=== PATIENT | female | born 1980 | race Caucasian/White ===

== ENCOUNTER 2020-03-28 13:34 | Outpatient (REF) | payer MEDICAID, SELFPAY ==
[2020-03-28 14:40] LABS: MANUAL DIFF FLAG NO
[2020-03-28 14:43] LABS: Basophils Percent Auto 0.5 % (0-2); Eosinophils Absolute Auto 0.6 X10*3/uL (0.0-0.4); Eosinophils Percent Auto 7.8 % (0-4); Hematocrit 34.9 % (37-47); Hemoglobin 11.3 g/dl (12.0-16.0); Imm Gran Abs Auto 0.02 X10*3/uL (0.00-0.03); Imm Gran Pct Auto 0.2 % (0.0-0.4); Lymphocytes Absolute Auto 2.4 X10*3/uL (1.2-4.9); Lymphocytes Percent Auto 29.3 % (20-40); Mean Corpuscular HGB Conc 32.4 g/dl (31.0-35.0); Mean Corpuscular Hemoglobin 29.1 pg (27.0-33.0); Mean Corpuscular Volume 89.9 fL (80-98); Mean Platelet Volume 9.6 fL (9.4-12.3); Monocytes Absolute Auto 0.6 X10*3/uL (0.1-1.2); Monocytes Percent Auto 7.2 % (2-11); Neutrophils Absolute Auto 4.5 X10*3/uL (2.0-8.3); Platelet Count 401 X10*3/uL (160-400); Red Blood Count 3.88 X10*6/uL (4.20-5.50); Red Cell Distribution Width 14.4 % (11.0-16.0); White Blood Count 8.1 X10*3/uL (4.8-10.8)
[2020-03-28 15:23] LABS: Alanine Aminotransferase 26 U/L (0-31); Alkaline Phosphatase 69 U/L (39-117); Anion Gap 9 (12-20); Aspartate Amino Transferase 24 U/L (5-31); Bilirubin Total 0.4 mg/dL (0.0-1.0); Blood Urea Nitrogen 14 mg/dL (9-16); Calcium 9.4 mg/dL (8.4-10.2); Carbon Dioxide 30 mmol/L (22-29); Chloride 104 mmol/L (96-108); Cholesterol 149 mg/dL; Estimated Glomerular Filt Rate > 60; Glucose Random 110 mg/dL (60-115); HDL Cholesterol 40 mg/dL; LDL Cholesterol Calculated 76 mg/dl; Potassium 4.4 mmol/l (3.3-5.1); Sodium 139 mmol/L (135-145); Total Protein 6.8 g/dL (6.5-8.0); Triglycerides 168 mg/dL
[2020-03-28 15:26] LABS: Thyroid Stimulating Hormone 1.19 mIU/mL (0.32-4.0)
== END 2020-03-28 13:35 | disposition home or self-care (01) ==
LOC: HO.LAB 13:34
PROVIDERS: PCP Internal Medicine; Visit Provider Internal Medicine
DX: Z00.00 Encounter for general adult medical examination without abnormal findings (principal); J01.90 Acute sinusitis, unspecified; R09.82 Postnasal drip; R51.9 Headache, unspecified
CPT/HCPCS: 36415; 80053; 80061; 84443; 85025

== ENCOUNTER 2020-04-02 13:36 | Outpatient (REF) | payer MEDICAID, SELFPAY ==
[2020-04-02 15:13] LABS: C Reactive Protein 0.39 mg/dL (< or = 0.50)
[2020-04-02 15:35] LABS: Erythrocyte Sedimentation Rate 16 MM/HR (0-20)
[2020-04-03 05:41] LABS: HBS Num1 1.67 mIU/mL (0-7.99); HBc Num1 0.06 S/CO (0.00-0.79); HBsAGNum1 0.18 S/CO (0.00-0.99); Hepatitis A Antibody IgM 0.19 Index (0-0.79); Hepatitis B Core Antibody Nonreactive (Nonreactive); Hepatitis B Surface Antigen Negative (Negative); ~Hepatitis A Antibody IgM Nonreactive (Nonreactive); ~Hepatitis B Surface Antibody NONREACTIVE (Nonreactive)
[2020-04-03 05:56] LABS: ~HepC Num1 0.05 S/CO (0.00-0.79); ~Hepatitis C Antibody Nonreactive (Nonreactive)
[2020-04-04 14:17] LABS: Transglutaminase IgA 1 U/mL
[2020-04-04 18:32] LABS: Gliadin Deamidated IgA Ab 5 Units; Gliadin Deamidated IgG Ab 2 Units
[2020-04-10 20:26] LABS: Calprotectin, Fecal 241 mcg/g
== END 2020-04-02 13:37 | disposition home or self-care (01) ==
LOC: HO.LAB 13:36
PROVIDERS: PCP Internal Medicine; Visit Provider Internal Medicine Gastroenterology
DX: K52.9 Noninfective gastroenteritis and colitis, unspecified (principal)
CPT/HCPCS: 36415; 81335; 83516; 83993; 85652; 86140; 86481; 86704; 86706; 86709; 86787; 86803; 87340

== ENCOUNTER → 2020-04-08 13:52 | Outpatient (BNVA) | payer MEDICAID, SELFPAY | PROVIDERS: PCP Internal Medicine; Referring Provider Internal Medicine; Visit Provider Internal Medicine Gastroenterology | DX: K52.9 Noninfective gastroenteritis and colitis, unspecified (principal); Z98.890 Other specified postprocedural states | CPT/HCPCS: 99212 ==

== ENCOUNTER 2020-04-10 15:54 | Outpatient (REF) | payer MEDICAID, SELFPAY ==
[2020-04-10 16:30] LABS: UPreg QC Valid YES; Urine Pregnancy NEGATIVE (NEGATIVE)
[2020-04-11 20:47] LABS: Follicle Stimulating Hormone 7.9 mIU/mL
== END 2020-04-10 15:55 | disposition home or self-care (01) ==
LOC: HO.LAB 15:54
PROVIDERS: PCP Internal Medicine; Visit Provider Internal Medicine
DX: E28.2 Polycystic ovarian syndrome (principal)
CPT/HCPCS: 81025; 83001

== ENCOUNTER 2020-06-24 10:36 | Outpatient (REF) | payer MEDICAID, SELFPAY ==
[2020-06-24 12:20] LABS: Anion Gap 11 (12-20); Blood Urea Nitrogen 11 mg/dL (9-16); Calcium 9.3 mg/dL (8.4-10.2); Carbon Dioxide 31 mmol/L (22-29); Chloride 101 mmol/L (96-108); Estimated Glomerular Filt Rate > 60; Glucose Random 117 mg/dL (60-115); Potassium 4.2 mmol/l (3.3-5.1); Sodium 139 mmol/L (135-145)
== END 2020-06-24 10:37 | disposition home or self-care (01) ==
LOC: HO.LAB 10:36
PROVIDERS: PCP Internal Medicine; Visit Provider Internal Medicine Gastroenterology
DX: K52.9 Noninfective gastroenteritis and colitis, unspecified (principal)
CPT/HCPCS: 36415; 80048

== ENCOUNTER 2020-06-25 13:34 | Outpatient (REF) | payer MEDICAID, SELFPAY | END 2020-06-25 13:35 | disposition home or self-care (01) | LOC: HO.US 13:34 | PROVIDERS: PCP Internal Medicine; Visit Provider Internal Medicine Gastroenterology | DX: Z13.89 Encounter for screening for other disorder (principal) ==

== ENCOUNTER → 2020-07-01 13:27 | Outpatient (BNVA) | payer MEDICAID, SELFPAY | PROVIDERS: PCP Internal Medicine; Visit Provider Internal Medicine Gastroenterology | DX: Z76.89 Persons encountering health services in other specified circumstances (principal) ==

== ENCOUNTER 2020-07-02 13:32 | Outpatient (REF) | payer MEDICAID, SELFPAY ==
--- NOTE | 2020-07-02 13:33 | CT_ITS ---
EXAMINATION: CT ENTEROGRAPHY ABDOMEN AND PELVIS WITH CONTRAST CLINICAL INFORMATION: Noninfected gastroenteritis and colitis COMPARISON: Previous CT of the abdomen and pelvis February 2019 TECHNIQUE: Study performed with oral VoLumen (1350 mL) and 480 mL of water to distend the abdomen. The patient was injected with 85 mL Omnipaque 350 intravenous contrast which was administered without adverse effect. Coronal and sagittal reformatted images were obtained at the technologist's workstation. This CT examination was performed using dose optimization techniques as appropriate, variously including the following: *Automated exposure control *Adjustment of mA and/or kV according to patient size (this includes techniques or standardized protocols for targeted exams where dose is matched to indication/reason for exam; i.e. extremities or head) *Use of iterative reconstruction technique DLP: 870 mGy-cm FINDINGS: GASTROINTESTINAL FINDINGS: Stomach: There are postsurgical changes from gastric sleeve. There is a moderate hiatal hernia. Small intestine: Satisfactorily distended and normal in appearance. Large intestine: Well-distended mild diverticulosis. Otherwise normal in appearance. No perirectal changes demonstrated. The appendix is is not identified and may been removed. Additional findings: No abnormal enhancement of the vasa recta or significant mesenteric or retroperitoneal lymphadenopathy is seen. No abdominal abscess or fistulous tract demonstrated. ABDOMINAL AND PELVIC CT FINDINGS: Liver, gallbladder, biliary tract: The liver is normal in size, shape and attenuation. No focal liver lesion is seen. There is no biliary duct dilatation. The gallbladder has been removed. Pancreas: Normal Spleen: Normal Adrenal glands and kidneys: The adrenal glands are unremarkable. There is fullness of both renal pelvises. The kidneys are otherwise unremarkable. No ureteral dilatation is seen. Ureters and bladder: Normal. Lymphovascular structures: There are no enlarged lymph nodes. Vascular structures are unremarkable. There is no ascites. There is evidence of previous ventral hernia repair with mesh. Bones: There is degenerative disc disease at L4-L5 and L5-S1. Lung bases: Unremarkable. CT/CT enterography IMPRESSION: Postoperative change from gastric sleeve procedure. Moderate-sized hiatal hernia. Mild diverticulosis of the colon. No evidence of inflammatory bowel disease. Post cholecystectomy ventral hernia repair with mesh.
[2020-07-02] MEDS: iohexoL 350 MG/ML 100 ML INFUS..BTL IV (15:09)
[2020-07-02] MEDS: Sorbitol/Mannit/Xanth Imaging 500 ML LIQUID 1500 ML PO (15:12)
== END 2020-07-02 13:33 | disposition home or self-care (01) ==
LOC: HO.US 13:32
PROVIDERS: Visit Provider Internal Medicine Gastroenterology
DX: K52.9 Noninfective gastroenteritis and colitis, unspecified (principal)
CPT/HCPCS: 74177; Q9967

== ENCOUNTER → 2020-08-23 08:06 | Outpatient (BNVA) | payer MEDICAID, SELFPAY | PROVIDERS: PCP Internal Medicine; Visit Provider Internal Medicine Gastroenterology ==

== ENCOUNTER → 2020-11-08 10:50 | Outpatient (BNVA) | payer MEDICAID, SELFPAY | PROVIDERS: PCP Internal Medicine; Visit Provider Internal Medicine Gastroenterology | DX: K52.9 Noninfective gastroenteritis and colitis, unspecified (principal) | CPT/HCPCS: 99212 ==

== ENCOUNTER 2020-12-12 10:13 | Outpatient (REF) | payer MEDICAID, SELFPAY ==
[2020-12-12 10:45] LABS: MANUAL DIFF FLAG NO
[2020-12-12 10:53] LABS: Basophils Percent Auto 0.4 % (0-2); Eosinophils Absolute Auto 0.4 X10*3/uL (0.0-0.4); Hematocrit 35.7 % (37-47); Hemoglobin 11.2 g/dl (12.0-16.0); Imm Gran Abs Auto 0.02 X10*3/uL (0.00-0.03); Imm Gran Pct Auto 0.2 % (0.0-0.4); Lymphocytes Absolute Auto 1.9 X10*3/uL (1.2-4.9); Lymphocytes Percent Auto 22.9 % (20-40); Mean Corpuscular HGB Conc 31.4 g/dl (31.0-35.0); Mean Platelet Volume 9.2 fL (9.4-12.3); Monocytes Absolute Auto 0.6 X10*3/uL (0.1-1.2); Neutrophils Absolute Auto 5.3 X10*3/uL (2.0-8.3); Neutrophils Percent Auto 64.5 % (45-73); Platelet Count 411 X10*3/uL (160-400); Red Blood Count 4.15 X10*6/uL (4.20-5.50); Red Cell Distribution Width 15.2 % (11.0-16.0); White Blood Count 8.3 X10*3/uL (4.8-10.8)
[2020-12-12 11:16] LABS: Alanine Aminotransferase 31 U/L (0-31); Albumin Level 4.2 g/dL (3.5-5.0); Alkaline Phosphatase 69 U/L (39-117); Anion Gap 10 (12-20); Aspartate Amino Transferase 31 U/L (5-31); Bilirubin Total 0.4 mg/dL (0.0-1.0); Blood Urea Nitrogen 12 mg/dL (9-16); C Reactive Protein 0.41 mg/dL (< or = 0.50); Calcium 9.5 mg/dL (8.4-10.2); Carbon Dioxide 29 mmol/L (22-29); Chloride 104 mmol/L (96-108); Estimated Glomerular Filt Rate > 60; Glucose Random 115 mg/dL (60-115); Sodium 139 mmol/L (135-145); Total Protein 6.9 g/dL (6.5-8.0)
[2020-12-12 11:17] LABS: Estimated Average Glucose 134 mg/dL; Hemoglobin A1c % 6.3 %
[2020-12-12 11:33] LABS: Thyroid Stimulating Hormone 1.47 uIU/mL (0.32-4.0)
[2020-12-12 11:39] LABS: Ferritin 1 ng/mL (10-250); Vitamin D 25-OH Total 26.5 ng/mL (>30)
[2020-12-12 11:54] LABS: Erythrocyte Sedimentation Rate 16 MM/HR (0-20)
[2020-12-12 12:20] LABS: Folate 8.9 ng/mL (> or = 4.0); Vitamin B12 547 pg/mL (200-900)
[2020-12-16 17:33] LABS: Zinc 65 mcg/dL (60-130)
[2020-12-17 16:37] LABS: Vitamin C 0.5 mg/dL (0.3-2.7)
[2020-12-17 19:01] LABS: Vitamin A 58 mcg/dL (38-98)
[2020-12-18 11:37] LABS: Vitamin B5 (Pantothenic Acid) 60 ng/mL (<275)
[2020-12-18 13:41] LABS: Alpha-Tocopherol 10.2 mg/L (5.7-19.9); Beta-Gamma Tocopherol 1.9 mg/L (<=4.3)
[2020-12-19 09:32] LABS: Nicotinamide <20 ng/mL; Vit B3 - Nicotinic Acid <20 ng/mL
[2020-12-22 15:36] LABS: Vitamin B6 48.2 ng/mL (2.1-21.7)
[2020-12-24 18:26] LABS: Vitamin K1 462 pg/mL (130-1500)
== END 2020-12-12 10:14 | disposition home or self-care (01) ==
LOC: HO.LAB 10:13
PROVIDERS: Internal Medicine Gastroenterology; PCP Internal Medicine; Visit Provider Internal Medicine
DX: E66.01 Morbid (severe) obesity due to excess calories (principal); G47.33 Obstructive sleep apnea (adult) (pediatric); I10 Essential (primary) hypertension; R42 Dizziness and giddiness; R51.9 Headache, unspecified; R53.83 Other fatigue; Z98.84 Bariatric surgery status
CPT/HCPCS: 36415; 80053; 82180; 82306; 82607; 82728; 82746; 83036; 84207; 84443; 84446; 84590; 84591; 84597; 84630; 85025; 85652; 86140

== ENCOUNTER → 2021-03-05 14:01 | Outpatient (BNVA) | payer MEDICAID, SELFPAY | PROVIDERS: PCP Internal Medicine; Visit Provider Internal Medicine Gastroenterology ==

== ENCOUNTER 2021-10-23 10:22 | Outpatient (REF) | payer MEDICAID, SELFPAY ==
[2021-10-23 10:34] LABS: MANUAL DIFF FLAG NO
[2021-10-23 10:54] LABS: Basophils Percent Auto 0.4 % (0-2); Eosinophils Absolute Auto 0.4 X10*3/uL (0.0-0.4); Eosinophils Percent Auto 5.1 % (0-4); Hematocrit 39.7 % (37.0-47.0); Hemoglobin 12.6 g/dl (12.0-16.0); Imm Gran Abs Auto 0.01 X10*3/uL (0.00-0.03); Imm Gran Pct Auto 0.1 % (0.0-0.4); Lymphocytes Absolute Auto 2.4 X10*3/uL (1.2-4.9); Lymphocytes Percent Auto 35.3 % (20-40); Mean Corpuscular HGB Conc 31.7 g/dl (31.0-35.0); Mean Corpuscular Hemoglobin 29.2 pg (27.0-33.0); Mean Corpuscular Volume 91.9 fL (80.0-98.0); Mean Platelet Volume 9.1 fL (9.4-12.3); Monocytes Absolute Auto 0.5 X10*3/uL (0.1-1.2); Neutrophils Absolute Auto 3.6 x10*3/uL (2.0-8.3); Neutrophils Percent Auto 52.1 % (45-73); Platelet Count 411 X10*3/uL (160-400); Red Blood Count 4.32 X10*6/uL (4.20-5.50); Red Cell Distribution Width 14.5 % (11.0-16.0); White Blood Count 6.9 X10*3/uL (4.8-10.8)
[2021-10-23 11:27] LABS: Alanine Aminotransferase 28 U/L (0-31); Albumin Level 4.2 g/dL (3.5-5.0); Alkaline Phosphatase 65 U/L (39-117); Anion Gap 12 (12-20); Aspartate Amino Transferase 31 U/L (5-31); Bilirubin Total 0.7 mg/dL (0.0-1.0); Blood Urea Nitrogen 10 mg/dL (9-16); Calcium 10.1 mg/dL (8.4-10.2); Carbon Dioxide 29 mmol/L (22-29); Chloride 104 mmol/L (96-108); Cholesterol 166 mg/dL; Estimated Glomerular Filt Rate > 60; Glucose Random 106 mg/dL (60-115); HDL Cholesterol 44 mg/dL; LDL Cholesterol Calculated 98 mg/dl; Potassium 4.1 mmol/L (3.3-5.1); Sodium 141 mmol/L (135-145); Total Protein 7.4 g/dL (6.5-8.0); Triglycerides 120 mg/dL
[2021-10-23 11:37] LABS: Thyroid Stimulating Hormone 1.47 uIU/mL (0.32-4.0)
== END 2021-10-23 10:23 | disposition home or self-care (01) ==
LOC: HO.LAB 10:22
PROVIDERS: PCP Internal Medicine; Visit Provider Internal Medicine
DX: E66.01 Morbid (severe) obesity due to excess calories (principal); Z68.41 Body mass index [BMI] 40.0-44.9, adult; F32.9 Major depressive disorder, single episode, unspecified; I10 Essential (primary) hypertension; R87.612 Low grade squamous intraepithelial lesion on cytologic smear of cervix (LGSIL); Z78.0 Asymptomatic menopausal state
CPT/HCPCS: 36415; 80053; 80061; 84443; 85025

== ENCOUNTER 2022-01-29 11:24 | Outpatient (REF) | payer MEDICAID, SELFPAY ==
[2022-01-29 15:13] LABS: CT PCR NOT DETECTED (Not Detect.); NG PCR NOT DETECTED (Not Detect.)
== END 2022-01-29 11:25 | disposition home or self-care (01) ==
LOC: HO.LAB 11:24
PROVIDERS: Visit Provider Obstetrics & Gynecology
DX: Z11.3 Encounter for screening for infections with a predominantly sexual mode of transmission (principal); N91.2 Amenorrhea, unspecified; R87.612 Low grade squamous intraepithelial lesion on cytologic smear of cervix (LGSIL)
CPT/HCPCS: 81025; 87491; 87591; 99202

== ENCOUNTER 2022-02-02 17:13 | Outpatient (REF) | payer MEDICAID, SELFPAY ==
[2022-02-02 18:19] LABS: HCG Quantitative < 2 mIU/mL; TSH reflex Free T4 1.59 uIU/mL (0.32-4.0)
[2022-02-04 06:42] LABS: Prolactin 7.4 ng/mL
== END 2022-02-02 17:14 | disposition home or self-care (01) ==
LOC: HO.LAB 17:13
PROVIDERS: PCP Internal Medicine; Visit Provider Obstetrics & Gynecology
DX: N91.2 Amenorrhea, unspecified (principal)
CPT/HCPCS: 36415; 84146; 84443; 84702

== ENCOUNTER 2022-02-07 23:32 | Emergency (ER) | payer MEDICAID, SELFPAY ==
[2022-02-07 23:49] VITALS: BP 153/94; PULSE 73; RESP 18; TEMP 36.2; O2SAT 100; BMI 41.1
== END 2022-02-08 04:53 | disposition left against medical advice (07) ==
PROVIDERS: Emergency Provider Emergency Medicine; PCP Internal Medicine
DX: M25.561 Pain in right knee (principal)
CPT/HCPCS: 99281

== ENCOUNTER 2022-02-10 11:13 | Outpatient (REF) | payer MEDICAID, SELFPAY ==
--- NOTE | ~2022-02-10 | XR_ITS ---
EXAMINATION: XR FOOT, RIGHT CLINICAL INFORMATION: Right heel pain since injury 8 months ago COMPARISON: None TECHNIQUE: AP, lateral, and oblique views of the right foot. FINDINGS: No acute fracture or dislocation. Joint spaces throughout the foot are maintained. No osteophytes or erosions. Lisfranc alignment is within normal limits. Large posterior and plantar calcaneal enthesophyte/spurs. Slight thickening of the distal Achilles tendon. No ankle joint effusion. XR/XR foot RT min 3V IMPRESSION: 1. No acute osseous injury. 2. Large posterior and plantar calcaneal enthesophytes/spurs.
[2022-02-10 11:51] LABS: MANUAL DIFF FLAG NO
[2022-02-10 12:06] LABS: Basophils Percent Auto 0.5 % (0-2); Eosinophils Absolute Auto 0.3 X10*3/uL (0.0-0.4); Eosinophils Percent Auto 4.5 % (0-4); Hematocrit 38.9 % (37.0-47.0); Hemoglobin 12.7 g/dl (12.0-16.0); Imm Gran Abs Auto 0.02 X10*3/uL (0.00-0.03); Imm Gran Pct Auto 0.3 % (0.0-0.4); Lymphocytes Absolute Auto 2.1 X10*3/uL (1.2-4.9); Mean Corpuscular HGB Conc 32.6 g/dl (31.0-35.0); Mean Corpuscular Hemoglobin 30.4 pg (27.0-33.0); Mean Corpuscular Volume 93.1 fL (80.0-98.0); Mean Platelet Volume 9.3 fL (9.4-12.3); Monocytes Absolute Auto 0.6 X10*3/uL (0.1-1.2); Monocytes Percent Auto 7.7 % (2-11); Neutrophils Absolute Auto 4.3 x10*3/uL (2.0-8.3); Platelet Count 380 X10*3/uL (160-400); Red Blood Count 4.18 X10*6/uL (4.20-5.50); Red Cell Distribution Width 13.6 % (11.0-16.0); White Blood Count 7.4 X10*3/uL (4.8-10.8)
[2022-02-10 12:14] LABS: Estimated Average Glucose 128 mg/dL; Hemoglobin A1c % 6.1 %
[2022-02-10 12:30] LABS: Alanine Aminotransferase 20 U/L (0-31); Albumin Level 3.9 g/dL (3.5-5.0); Alkaline Phosphatase 59 U/L (39-117); Anion Gap 12 (12-20); Aspartate Amino Transferase 21 U/L (5-31); Bilirubin Total 0.5 mg/dL (0.0-1.0); Blood Urea Nitrogen 11 mg/dL (9-16); Calcium 9.2 mg/dL (8.4-10.2); Carbon Dioxide 30 mmol/L (22-29); Chloride 104 mmol/L (96-108); Estimated Glomerular Filt Rate > 60; Glucose Random 121 mg/dL (60-115); Potassium 4.1 mmol/L (3.3-5.1); Sodium 142 mmol/L (135-145); Total Protein 6.7 g/dL (6.5-8.0)
[2022-02-10 12:53] LABS: Ferritin 10 ng/mL (10-250); Thyroid Stimulating Hormone 1.25 uIU/mL (0.32-4.0)
[2022-02-10 12:59] LABS: Vitamin B12 371 pg/mL (200-900)
== END 2022-02-10 11:14 | disposition home or self-care (01) ==
LOC: HO.LAB 11:13
PROVIDERS: PCP Internal Medicine; Visit Provider Internal Medicine
DX: I83.12 Varicose veins of left lower extremity with inflammation (principal); I10 Essential (primary) hypertension; M79.671 Pain in right foot; R63.5 Abnormal weight gain; Z72.0 Tobacco use
CPT/HCPCS: 36415; 73630; 80053; 82607; 82728; 83036; 84443; 85025; 99202

== ENCOUNTER 2022-02-19 15:50 | Outpatient (REF) | payer MEDICAID, SELFPAY | END 2022-02-19 15:51 | disposition home or self-care (01) | LOC: HO.LNP 15:50 | PROVIDERS: PCP Internal Medicine; Visit Provider Obstetrics & Gynecology | DX: R87.612 Low grade squamous intraepithelial lesion on cytologic smear of cervix (LGSIL) (principal); Z32.02 Encounter for pregnancy test, result negative | CPT/HCPCS: 57454; 81025; 88305 ==

== ENCOUNTER → 2022-03-05 13:36 | Outpatient (BNVA) | payer MEDICAID, SELFPAY | PROVIDERS: PCP Internal Medicine; Visit Provider Obstetrics & Gynecology | DX: R87.612 Low grade squamous intraepithelial lesion on cytologic smear of cervix (LGSIL) (principal) | CPT/HCPCS: 99212 ==

== ENCOUNTER 2022-05-30 23:37 | Inpatient (IN) | payer MEDICAID, SELFPAY ==
--- NOTE | ~2022-05-30 | CT_ITS ---
EXAMINATION: CT HEAD WITHOUT CONTRAST CLINICAL INFORMATION: Syncope. Head strike. COMPARISON: MRI brain 10/19/2019. CT head 01/22/2019. TECHNIQUE: Contiguous axial imaging was performed from the skull base to vertex without intravenous administration of contrast. This CT examination was performed using dose optimization techniques as appropriate, variously including the following: *Automated exposure control *Adjustment of mA and/or kV according to patient size (this includes techniques or standardized protocols for targeted exams where dose is matched to indication/reason for exam; i.e. extremities or head) *Use of iterative reconstruction technique DLP: 848 mGy-cm FINDINGS: No intracranial hemorrhage, tumors or acute infarcts noted. The ventricles and sulci are normal in size and configuration. No focal parenchymal lesions of the brain or abnormal extra-axial fluid collections identified. Multifocal dental amalgam which gives rise to scattering artifact obscuring visualization of adjacent transaxial structures. Normal appearance of the orbits and globes. No significant opacification of the visualized paranasal sinuses, mastoid air cells and middle ear cavities. Punctate gas is noted in the left lateral aspect of the cavernous sinus and may represent iatrogenically introduced gas of uncertain clinical significance. CT/CT head/brain wo IV con IMPRESSION: No acute intracranial abnormalities. No intracranial hemorrhage.
--- NOTE | ~2022-05-30 | CT_ITS ---
EXAMINATION: CT chest w IV con, CT soft tissue neck w IV con CLINICAL INFORMATION: Reason for Exam chest trauma, anterior chest wall pain, neck pain. Swollen tonsils. Syncope. COMPARISON: None. TECHNIQUE: IV contrast and CT of the neck and of the chest with multiple coronal and sagittal reformatted images. Intravenous Contrast: Omnipaque [address] examination was performed using dose optimization techniques as appropriate, variously including the following: *Automated exposure control *Adjustment of mA and/or kV according to patient size (this includes techniques or standardized protocols for targeted exams where dose is matched to indication/reason for exam; i.e. extremities or head) *Use of iterative reconstruction technique DLP: 2464 mGy-cm FINDINGS: CT neck: The visualized orbits and globes are normal in appearance. Within the incidentally visualized intracranial structures, no abnormalities are noted. The parotid, submandibular and sublingual glands are normal in appearance. No maxillofacial soft tissue inflammatory changes identified. Bilateral diffuse prominence of the palatine tonsils is noted. No tonsillar or peritonsillar fluid collections visualized. The airway demonstrates a minimum diameter of 5 mm. No thickening of the aryepiglottic folds or epiglottis noted. Mild edematous changes are noted in the parapharyngeal fat which is not effaced. The jugulodigastric lymph nodes are at the upper limits of normal size bilaterally. Scattered bilateral level 2 lymph nodes at the upper limits of normal size are present and are suspicious for reactive lymphadenopathy. A 7 mm rounded low-density focus is present in the right lobe of the thyroid and on the basis of size criteria is likely to be benign not definitively warranting additional imaging follow-up. Minimal nonocclusive calcific atherosclerotic plaque is present in the right carotid bulb. Normal intraluminal opacification is noted in the internal jugular systems. No mastoid or middle ear cavity effusions. Mild straightening of the cervical lordosis which may be secondary to positioning during the examination. No prevertebral fluid collections identified. CT CHEST: LUNGS: No pulmonary consolidation. No suspicious nodules. No endobronchial lesions. Mediastinum: Small hiatal hernia and fluid distention of the thoracic esophagus without evidence of mural inflammatory changes or thickening of the thoracic esophagus. Suture material is noted which may relate to a prior gastric sleeve resection and possible fundoplication. No mediastinal lymphadenopathy. Normal heart size. Pleura: No pneumothoraces or pleural effusions. CHEST WALL: No axillary lymphadenopathy. No soft tissue inflammatory changes. Incidentally visualized abdominal structures: The left adrenal gland is partially included in the image [id number] and demonstrates no abnormalities. As noted above, suture material is noted in association with the stomach and a small hiatal hernia is present. Osseous structures: No fractures identified. Intact sternum. No vertebral body compression deformities. Minimal multilevel anterior endplate osteophytosis of the thoracic spine. CT/CT soft tissue neck w IV con IMPRESSION: CT neck: *Marked diffuse prominence of the palatine tonsils bilaterally which may correlate with pharyngitis/tonsillitis. No tonsillar or peritonsillar fluid collections. Enlargement of the tonsils results in narrowing of the airway to a minimum diameter of 5 mm. *Bilateral anterior cervical reactive lymphadenopathy which may be secondary to pharyngitis/tonsillitis. CT CHEST: *No acute traumatic abnormalities of the thorax. *Small hiatal hernia and moderate diffuse fluid dilatation of the thoracic esophagus. Suture material is noted in association with the stomach which is partially included in the image [id number] suggestive of a prior gastric sleeve resection and possible fundoplication.
--- NOTE | ~2022-05-30 | CT_ITS ---
EXAMINATION: CT ABDOMEN AND PELVIS WITH CONTRAST CLINICAL INFORMATION: Abdominal trauma. Syncope. COMPARISON: CT chest 05/31/2022. CT abdomen 02/28/2019 TECHNIQUE: Multidetector volumetric images were obtained from the superior aspect of the liver through the pubic symphysis following administration 100 mL of Omnipaque 350 intravenous contrast. Sagittal and coronal reformatted images were obtained on the technologist's workstation. Oral contrast: No This CT examination was performed using dose optimization techniques as appropriate, variously including the following: *Automated exposure control *Adjustment of mA and/or kV according to patient size (this includes techniques or standardized protocols for targeted exams where dose is matched to indication/reason for exam; i.e. extremities or head) *Use of iterative reconstruction technique DLP: 2464 mGy-cm FINDINGS: LUNG BASES: The visualized lung bases are unremarkable. LIVER, GALLBLADDER, AND BILIARY TREE: The liver is normal in size, shape, and attenuation. No focal hepatic lesion or biliary ductal dilatation is present. Cholecystectomy clips are noted. PANCREAS: Unremarkable. SPLEEN: Unremarkable. ADRENAL GLANDS: Unremarkable. KIDNEYS AND URETERS: The kidneys are normal in size, shape, and attenuation. No hydronephrosis, hydroureter, or calculi seen. No perinephric stranding. BLADDER: Unremarkable. GASTROINTESTINAL TRACT: Concentric prominence of the submucosa is present in the cecum with findings suspicious for possible submucosal fatty hypertrophy. The appendix is not visualized. No pericecal inflammatory changes noted. A cecal bascule is noted. No free intraperitoneal fluid or gas collections identified. A small hiatal hernia is present unchanged compared with 07/02/2020. Suture material is present along the gastric greater curvature suggestive of prior gastric sleeve resection. ABDOMINAL WALL: An anterior abdominal wall mesh graft is noted. No abdominal wall hernias. LYMPH NODES: Normal. VASCULAR: Unremarkable. PELVIC VISCERA: Unremarkable. OSSEOUS STRUCTURES: Moderate vacuum phenomena and joint space narrowing L4-L5 and L5-S1. No vertebral body compression deformities. CT/CT abdomen pelvis w IV con IMPRESSION: IV contrast enhanced CT of the abdomen and pelvis: *No acute traumatic abnormalities identified. *Mild concentric mural thickening and submucosal mural stratification of the cecum. Findings may represent the sequela of remote bowel inflammatory changes. Overlying mild cecal acute inflammatory changes could additionally be present. The appendix is not visualized. Findings are most likely represent chronic mural hypertrophy related to previous inflammatory changes. *Small hiatal hernia unchanged compared with 07/02/2020. Status post gastric sleeve resection and possible fundoplication.
--- NOTE | ~2022-05-30 | CT_ITS ---
EXAMINATION: CT chest w IV con, CT soft tissue neck w IV con CLINICAL INFORMATION: Reason for Exam chest trauma, anterior chest wall pain, neck pain. Swollen tonsils. Syncope. COMPARISON: None. TECHNIQUE: IV contrast and CT of the neck and of the chest with multiple coronal and sagittal reformatted images. Intravenous Contrast: Omnipaque [address] examination was performed using dose optimization techniques as appropriate, variously including the following: *Automated exposure control *Adjustment of mA and/or kV according to patient size (this includes techniques or standardized protocols for targeted exams where dose is matched to indication/reason for exam; i.e. extremities or head) *Use of iterative reconstruction technique DLP: 2464 mGy-cm FINDINGS: CT neck: The visualized orbits and globes are normal in appearance. Within the incidentally visualized intracranial structures, no abnormalities are noted. The parotid, submandibular and sublingual glands are normal in appearance. No maxillofacial soft tissue inflammatory changes identified. Bilateral diffuse prominence of the palatine tonsils is noted. No tonsillar or peritonsillar fluid collections visualized. The airway demonstrates a minimum diameter of 5 mm. No thickening of the aryepiglottic folds or epiglottis noted. Mild edematous changes are noted in the parapharyngeal fat which is not effaced. The jugulodigastric lymph nodes are at the upper limits of normal size bilaterally. Scattered bilateral level 2 lymph nodes at the upper limits of normal size are present and are suspicious for reactive lymphadenopathy. A 7 mm rounded low-density focus is present in the right lobe of the thyroid and on the basis of size criteria is likely to be benign not definitively warranting additional imaging follow-up. Minimal nonocclusive calcific atherosclerotic plaque is present in the right carotid bulb. Normal intraluminal opacification is noted in the internal jugular systems. No mastoid or middle ear cavity effusions. Mild straightening of the cervical lordosis which may be secondary to positioning during the examination. No prevertebral fluid collections identified. CT CHEST: LUNGS: No pulmonary consolidation. No suspicious nodules. No endobronchial lesions. Mediastinum: Small hiatal hernia and fluid distention of the thoracic esophagus without evidence of mural inflammatory changes or thickening of the thoracic esophagus. Suture material is noted which may relate to a prior gastric sleeve resection and possible fundoplication. No mediastinal lymphadenopathy. Normal heart size. Pleura: No pneumothoraces or pleural effusions. CHEST WALL: No axillary lymphadenopathy. No soft tissue inflammatory changes. Incidentally visualized abdominal structures: The left adrenal gland is partially included in the image [id number] and demonstrates no abnormalities. As noted above, suture material is noted in association with the stomach and a small hiatal hernia is present. Osseous structures: No fractures identified. Intact sternum. No vertebral body compression deformities. Minimal multilevel anterior endplate osteophytosis of the thoracic spine. CT/CT chest w IV con IMPRESSION: CT neck: *Marked diffuse prominence of the palatine tonsils bilaterally which may correlate with pharyngitis/tonsillitis. No tonsillar or peritonsillar fluid collections. Enlargement of the tonsils results in narrowing of the airway to a minimum diameter of 5 mm. *Bilateral anterior cervical reactive lymphadenopathy which may be secondary to pharyngitis/tonsillitis. CT CHEST: *No acute traumatic abnormalities of the thorax. *Small hiatal hernia and moderate diffuse fluid dilatation of the thoracic esophagus. Suture material is noted in association with the stomach which is partially included in the image [id number] suggestive of a prior gastric sleeve resection and possible fundoplication.
[2022-05-30 23:42] VITALS: BP 136/81; BP 146/90; PULSE 117; PULSE 119; RESP 16; TEMP 36.8; O2SAT 96; BMI 40.6
--- NOTE | 2022-05-30 23:47 | ECG_ITS ---
Test Reason : TACHYCARDIA Blood Pressure : / mmHG Vent. Rate : 111 BPM Atrial Rate : 111 BPM P-R Int : 156 ms QRS Dur : 086 ms QT Int : 312 ms P-R-T Axes : 052 043 -05 degrees QTc Int : 424 ms Sinus tachycardia T wave abnormality, consider inferior ischemia Abnormal ECG When compared with ECG of 02-MAR-2019 11:51, Premature ventricular complexes are no longer Present Vent. rate has increased BY 44 BPM T wave inversion more evident in Inferior leads Nonspecific T wave abnormality no longer evident in Anterior leads Referred By: Carmen Cardozo Electronically Signed By:NILAY PERLA MD
--- NOTE | 2022-05-30 23:49 | ED.GENADULT ---
HPI - General Adult General Chief complaint: General Medical Stated complaint: syncope Time Seen by Provider: 05/30/22 23:40 Source: patient and EMS Mode of arrival: EMS Limitations: no limitations History of Present Illness HPI narrative: This is a 42-year-old female with no significant medical history presenting to the emergency department with complaints of severe sore throat, syncopal episode. Patient tells me she has been having a sore throat for about a week, she tells me she was seen by her PCP via telemedicine was prescribed azithromycin for her sore throat however throat is worsening, despite antibiotics. Patient tells me it is very difficult to swallow and she feels like she cannot swallow her saliva. She tells me she is very uncomfortable. She tells me she actively participates in oral sex, new partner unsure of STD status, some concerns for STDs, she is wondering if she has gonococcal pharyngitis. Patient also reports that just prior to arrival she had a syncopal episode, she tells me that this is never happened to her before. She reports she was walking to the bathroom and suddenly started to feel faint, woke up on the ground, unsure if she hit her head, she tells me she did lose consciousness, she is not on blood thinners. Denies any specific preceding symptoms other than feeling faint. Patient reports fever T-max a 103 degrees at. Patient was placed in a cervical collar by EMS and arrives in a cervical collar. Denies chest pain, headache, vision changes, dizziness, weakness, nausea, vomiting, abdominal pain. Related Data Home Medications Medication Instructions Recorded Confirmed omeprazole 40 mg capsule,delayed 40 mg PO BID 07/01/20 release lisinopril 10 1 tab PO DAILY 03/05/21 mg-hydrochlorothiazide 12.5 mg tablet sennosides 8.6 mg tablet (senna) 8.6 mg PO BEDTIME PRN constipation 03/05/21 bupropion HCl 300 mg 24 hr tablet, 300 mg PO DAILY 01/29/22 extended release Previous Rx's Medication Instructions Recorded sodium,potassium,mag sulfates 17.5 See Rx Instructions PO ONCE #354 mL 08/23/20 gram-3.13 gram-1.6 gram oral soln (Suprep Bowel Prep Kit) ferrous gluconate 324 mg (38 mg 324 mg PO TID #90 tabs 01/01/22 iron) tablet Allergies Allergy/AdvReac Type Severity Reaction Status Date / Time Shellfish Allergy Mild HIVES/RASH/ Uncoded 03/05/22 13:44 SWELLING shellfish Allergy Unknown unknown Uncoded 03/05/22 13:44 Review of Systems Review of Systems: Constitutional : No Weight loss, No Fever, No Chills, No Fatigue, No Malaise ENT/Mouth : + sore throat, No Rhinorrhea Eyes: No Eye Pain, No Swelling, No Redness Cardiovascular : No Chest Pain, No SOB, No Dyspnea on Exertion, No Orthopnea, No Edema, No Palpitations Respiratory : No Cough, No Sputum, No Wheezing Gastrointestinal : No Nausea, No Vomiting, No Diarrhea, No Constipation, No abdominal Pain, No Hematochezia, No Melena Genitourinary : No Dysuria, No Urinary Frequency, No Hematuria, Musculoskeletal : No joint pain, No Myalgias, No Joint Swelling Skin : No Skin Lesions, No rash Neuro : No Weakness, No Numbness, No Dizziness, No Headache Psych : No Anxiety/Panic, No Depression All other systems reviewed and are negative Yes all other systems are reviewed and are negative [facility] Past Medical History Attestation statement: The following information was validated with the patient. Source: old records reviewed and nursing notes reviewed Medical History Rectal prolapse Surgical History H/O gastric bypass History of colonoscopy History of hernia repair Hx of cholecystectomy Hx of endoscopy LAP-BAND surgery status Family History Family History Father History of blood pressure problems Diabetes Mother Diabetes Son Leukemia Social History Social History Household Members: Spouse Housing: Apartment Alcohol intake: current Alcohol intake frequency: holidays/special occasions only Patient Tobacco Use Status: Current everyday Tobacco user Cigarettes Per Day: 5 Years Smoked: 20 Smoked in Last 30 Days: Yes Use of substances other than those prescribed or required for medical reasons: Yes Substance Use Type: Prescription Drugs Advance Directives: No Advance Directives Information Provided: No Sexual orientation: Straight/Heterosexual Gender identity: Female Physical Exam ED Vital Signs: Vital Signs - 24 hr 05/30/22 23:42 Temperature 98.3 F Pulse Rate 117 H Respiratory Rate 16 Blood Pressure 136/81 Pulse Oximetry 96 Oxygen Delivery Method Room Air BMI result Body Mass Index 40.6 Vital signs stable slightly tachycardic. Appearance: Alert.? Oriented X3.? Mild distress. Patient with slight muffled voice. Head: Normocephalic, atraumatic, no step-offs or deformities Eyes: Pupils equal, round and reactive to light.? ENT: Pharynx with bilateral exudates to tonsils with erythema, edema, tonsils are almost touching.. Submandibular adenopathy. Neck: Normal inspection.? Neck supple.? Patient in cervical collar no midline tenderness to palpation. CVS: Normal heart rate and rhythm.? Pulses normal.? Respiratory: No respiratory distress.? Breath sounds normal.? No stridor Abdomen: Soft and nontender.? Skin: Skin warm and dry.? Normal skin color.? Normal skin turgor.? Extremities: No lower extremity edema.? No calf ttp. 5/5 strength to bilateral upper and lower extremities Neuro: Oriented X 3.? No motor deficit.? No sensory deficit. CN 2-12 intact Course Reevaluation(s) Reevaluation #1: Patient's CBC with strikingly high leukocytosis, patient given clindamycin, ceftriaxone to cover for gonorrhea, chemistry with no acute findings requiring intervention, troponin negative, EKG nonischemic unlikely ACS, lactic acid negative. Pending CT of head, neck, chest, abdomen and pelvis. At this time sign-out given to Dr. Grubbs, pending scans, chemistry, troponin, reassessment , I suspect patient will require hospital admission. Time: 00:41 Medications Administered Generic Name Dose Route Start Last Admin Trade Name Freq PRN Reason Stop Dose Admin Sodium Chloride 2,925.66 mls @ 2,925.66 mls/hr 05/30/22 23:48 05/31/22 00:07 Ns 30 ml/kg infuse over 1 hr (2925.66 ml) 05/31/22 00:47 2,925.66 mls/hr IV Administration .Q1H STA Discontinued Medications Generic Name Dose Route Start Last Admin Trade Name Freq PRN Reason Stop Dose Admin Ceftriaxone Sodium 500 mg/ 0 mg 05/30/22 23:48 05/31/22 00:29 Lidocaine HCl 1 ml IM 05/30/22 23:49 1 kit ONCE ONE Administration Clindamycin Phosphate 600 mg in 50 mls @ 100 mls/hr 05/30/22 23:48 05/31/22 00:17 Cleocin IV 05/31/22 00:17 100 mls/hr ONCE ONE Administration Morphine Sulfate 4 mg 05/30/22 23:47 05/31/22 00:17 Morphine Sulfate 4 Mg/Ml Cartridge IVPUSH 05/30/22 23:48 4 mg ONCE ONE Administration Protocol Medical Decision Making Medical Decision Making [facility] Narrative: [id number] 42-year-old female presents with 2 complaints 1st complaint severe sore throat not responding to antibiotics. Second complete syncopal episode just prior to arrival. Physical examination with Pharynx with bilateral exudates to tonsils with erythema, edema, tonsils are almost touching.. Submandibular adenopathy. Regular rate fast rhythm likely sinus tachycardia. Lungs clear. Abdomen soft nontender nondistended. Patient's cervical collar however no midline tenderness to exam. Neuro nonfocal. GCS 15. NIH stroke scale 0. Plan at this time trauma scans due to mechanism of injury. Will obtain throat culture, strep test, mono, CT soft tissue neck to rule out peritonsillar abscess. Will also obtain trauma scans as patient fell, lost consciousness unknown down time. Obtain EKG and troponin to rule out cardiac etiologies. I do not suspect PE on this patient Plan labs, urine, troponin, EKG, gonorrhea chlamydia, flu/COVID/RSV, Upon patient's arrival sepsis alert called, and a sepsis focused exam was done. Critical Care Time Critical Care Time Critical Care Time: No Discharge Plan Discharge Clinical Impression: Pharyngitis, Syncope Prescriptions: No Action Suprep Bowel Prep Kit 17.5-3.13-1.6 gram recon soln See Rx Instructions PO ONCE Qty: 354 0RF Rx Instructions: As directed PO ferrous gluconate 324 mg (38 mg iron) tablet 324 mg PO TID Qty: 90 0RF omeprazole 40 mg capsule,delayed release(DR/EC) 40 mg PO BID sennosides [senna] 8.6 mg tablet 8.6 mg PO BEDTIME PRN (Reason: constipation) lisinopril-hydrochlorothiazide 10-12.5 mg tablet 1 tab PO DAILY bupropion HCl 300 mg tablet extended release 24 hr 300 mg PO DAILY
[2022-05-31] VITALS (10 sets, daily range): BP systolic 124–148; BP diastolic 67–89; PULSE 68–111; RESP 14–20; TEMP 36.1–36.9; O2SAT 94–99
[2022-05-31] MEDS: 0.9 % Sodium Chloride 2,925.66 ML 2925.66 ML IV (00:07)
[2022-05-31] MEDS: Clindamycin Phosphate/D5W 600 MG/50 ML PIGGYBACK 100 MG IV (00:17)
[2022-05-31] MEDS: Morphine Sulfate 4 MG/ML CARTRIDGE IVPUSH (00:17)
[2022-05-31 00:23] LABS: Basophils Absolute Auto 0.1 X10*3/uL (0.0-0.2); Basophils Percent Auto 0.2 % (0-2); Eosinophils Absolute Auto 0.1 X10*3/uL (0.0-0.4); Eosinophils Percent Auto 0.3 % (0-4); Hemoglobin 14.2 g/dl (12.0-16.0); Imm Gran Abs Auto 0.19 X10*3/uL (0.00-0.03); Imm Gran Pct Auto 0.8 % (0.0-0.4); Lymphocytes Absolute Auto 1.1 X10*3/uL (1.2-4.9); Lymphocytes Percent Auto 4.3 % (20-40); MANUAL DIFF FLAG SCAN; Mean Corpuscular HGB Conc 33.8 g/dl (31.0-35.0); Mean Corpuscular Hemoglobin 30.9 pg (27.0-33.0); Mean Corpuscular Volume 91.3 fL (80.0-98.0); Mean Platelet Volume 9.6 fL (9.4-12.3); Monocytes Percent Auto 8.1 % (2-11); Neutrophils Absolute Auto 21.8 x10*3/uL (2.0-8.3); Neutrophils Percent Auto 86.3 % (45-73); Platelet Count 333 X10*3/uL (160-400); Red Cell Distribution Width 13.8 % (11.0-16.0); SCAN SMEAR FLAG 1; White Blood Count 25.2 X10*3/uL (4.8-10.8)
[2022-05-31] MEDS: cefTRIAXone sodium 500 MG, Lidocaine HCl 1 % MPF 1 ML IM (00:29)
[2022-05-31 00:35] LABS: Strep A Nucleic Acid Positive (Negative)
[2022-05-31 00:35] LABS: Monotest Negative (Negative)
[2022-05-31 00:36] LABS: Lactic Acid 0.9 mmol/L (0.5-2.0)
[2022-05-31 00:40] LABS: Alanine Aminotransferase 17 U/L (0-31); Alkaline Phosphatase 78 U/L (39-117); Anion Gap 17 (12-20); Aspartate Amino Transferase 22 U/L (5-31); Bilirubin Total 0.4 mg/dL (0.0-1.0); Blood Urea Nitrogen 14 mg/dL (9-16); Calcium 9.8 mg/dL (8.4-10.2); Carbon Dioxide 26 mmol/L (22-29); Chloride 101 mmol/L (96-108); Creatinine Clr Calc Pharmacy 84.2; Estimated Glomerular Filt Rate > 60; Glucose Random 136 mg/dL (60-115); Magnesium 1.9 mg/dL (1.6-2.6); Potassium 3.9 mmol/L (3.3-5.1); Sodium 140 mmol/L (135-145); Total Protein 7.4 g/dL (6.5-8.0)
[2022-05-31 00:41] LABS: SLIDE REVIEW VERIFIED
[2022-05-31 00:43] LABS: Troponin-I High Sensitivity 3.7 ng/L (<3.5-17.0)
[2022-05-31 00:57] LABS: Influenza A PCR NEGATIVE (Negative); Influenza B PCR NEGATIVE (Negative); Resp Syncy Virus RNA Qual PCR NEGATIVE (Negative); SARS COV2 PCR INHOUSE NEGATIVE (Negative)
[2022-05-31] MEDS: dexAMETHasone sod phosphate 4 MG/ML VIAL 8 MG IVPUSH (01:08)
[2022-05-31 01:29] LABS: HCG Quantitative < 2 mIU/mL
[2022-05-31 02:21] LABS: Ethanol < 10 mg/dL
[2022-05-31 02:22] LABS: Appearance Urine Clear; Color Urine Yellow; Glucose Urine UA Negative (Negative); Leukocyte Esterase Urine Negative (Negative); Nitrite Urine Negative (Negative); PH 5.5 (5.0-9.0); Specific Gravity - Urine 1.025 (1.005-1.025); UMIC TRIGGER UACC YES; Urine Blood Moderate (2+) (Negative); Urine Ketones Negative (Negative); Urine Protein Trace mg/dL (Neg-Trace)
[2022-05-31] MEDS: iohexoL 350 MG/ML 100 ML INFUS..BTL IV (02:23)
--- NOTE | 2022-05-31 02:30 | PC.NURSE ---
Pt arrived via EMS and triaged 05/30/2022 @ 2342. Blood cultures and antibiotics ordered by provider @ 2344 and 2348, prior to sepsis protocol being initiated. Sepsis protocol initiated by provider 05/31/2022 @ 0004. Blood cultures received by the lab at 0012 and 0021. Antibiotics started at 0044. Pt is aware of plan of care.
[2022-05-31 02:33] LABS: Amphetamine Screen Urine Not Detected (Not Detect); Bacteria Urine None Seen (None Seen); Barbiturates, Urine Not Detected (Not Detect); Benzodiazepines Screen Urine Not Detected (Not Detect); Cannabinoid Screen Urine Not Detected (Not Detect); Cocaine Screen Urine Not Detected (Not Detect); Fentanyl, urine Not Detected (Not Detect); Hyaline Casts Urine 0-2 /LPF (0-2); Opiate Screen Urine POSITIVE (Not Detect); Phencyclidine Screen Urine Not Detected (Not Detect); WBC Urine 0-5 /HPF (0-5)
--- NOTE | 2022-05-31 03:45 | P.HPHOSP_ITS ---
History of Present Illness Date of Service: 05/31/22 Chief Complaint: Throat ache This is a 42-year-old female with pertinent history of mood disorder, essential hypertension, gastroesophageal reflux disease who presents to the emergency department for evaluation of severe throat ache. Patient states it started 2 days prior to presentation. She was prescribed azithromycin by her PCP but her symptoms did not improve. Her throat continued to progress and now she has mild difficulty in swallowing food. Had strep throat as a child. Does endorse unprotected oral intercourse. Has had single partner for the last 1 year. No history of STI in patient or partner but patient states she is concerned for gonococcal pharyngitis. Has associated fever, chills, generalized malaise and easy fatigability. Patient states she also had a syncopal episode when she tried to get up to go to her bathroom. She felt dizzy, lightheaded and passed out briefly. Unsure if she hit her head, not on blood thinners. No chest pain, palpitations, tongue bite, urinary or bowel incontinence prior to the episode. No postictal confusion. She denies chest discomfort, palpitations, abdominal pain, shortness of breath, changes in urinary or bowel habits. Review of Systems Constitutional: Constitutional: Reports chills, Reports fatigue, Reports fever(s), Reports lethargy and Reports malaise ENT: Reports dysphagia Cardiovascular: Cardiovascular: Reports no additional cardiovascular complaints Respiratory: Respiratory: Reports no additional respiratory complaints Gastrointestinal: Gastrointestinal: Reports dysphagia Genitourinary: Genitourinary: Reports no additional female genitourinary complaints Endocrine: Endocrine: Reports fatigue [facility] Medical History (Updated 05/31/22 @ 04:17 by Addis Austin MD) GERD (gastroesophageal reflux disease) Mood disorder Rectal prolapse Family History Father History of blood pressure problems Diabetes Mother Diabetes Son Leukemia Surgical History H/O gastric bypass History of colonoscopy History of hernia repair Hx of cholecystectomy Hx of endoscopy LAP-BAND surgery status Social History Household Members: Spouse Housing: Apartment Alcohol intake: current Alcohol intake frequency: holidays/special occasions only Patient Tobacco Use Status: Current everyday Tobacco user Cigarettes Per Day: 5 Years Smoked: 20 Smoked in Last 30 Days: Yes Use of substances other than those prescribed or required for medical reasons: Yes Substance Use Type: Prescription Drugs Advance Directives: No Advance Directives Information Provided: No Sexual orientation: Straight/Heterosexual Gender identity: Female Meds Allergies Allergy/AdvReac Type Severity Reaction Status Date / Time Shellfish Allergy Mild HIVES/RASH/ Uncoded 03/05/22 13:44 SWELLING Active Medications: Current Medications Pharmacy Consult (Consult Rx Perform Med Rec) 1 each MISCELLANE ONCE PRN PRN Reason: Consult order Home Medications Medication Instructions Recorded Confirmed Last Taken Type omeprazole 40 mg capsule,delayed 40 mg PO BID 07/01/20 Unknown History release lisinopril 10 1 tab PO DAILY 03/05/21 Unknown History mg-hydrochlorothiazide 12.5 mg tablet sennosides 8.6 mg tablet (senna) 8.6 mg PO BEDTIME PRN constipation 03/05/21 Unknown History bupropion HCl 300 mg 24 hr tablet, 300 mg PO DAILY 01/29/22 Unknown History extended release Physical Exam Vital Signs and Narrative: Vital Signs: Last Vital Signs Temp 98.5 F 05/31/22 02:38 Pulse 110 H 05/31/22 02:38 Resp 20 05/31/22 02:38 BP 141/89 H 05/31/22 02:38 Pulse Ox 97 05/31/22 02:38 O2 Del Method 05/31/22 02:38 BMI result Body Mass Index 40.6 Middle-aged female lying in bed in mild distress Pharynx with bilateral exudates, erythematous tonsils, anterior lymphadenopathy+ Neck supple, no JVD Tachycardic with regular rhythm, S1-S2 heard Regular breath sounds bilaterally, no wheezing or crackles appreciated Abdomen soft nontender, no guarding, no rigidity Patient is awake, alert and oriented to self, place, time and person ; no focal motor deficit Psych: Normal mood No pedal edema Results Labs CBC and Chem 7: 05/31/22 00:12 05/31/22 00:12 Labs: Laboratory Results - last 24 hr 05/31/22 05/31/22 05/31/22 00:12 00:12 00:12 MCV 91.3 MCH 30.9 MCHC 33.8 RDW 13.8 Plt Count 333 MPV 9.6 Immature Gran % (Auto) 0.8 H Neut % (Auto) 86.3 H Lymph % (Auto) 4.3 L [place] % (Auto) 8.1 Eos % (Auto) 0.3 Baso % (Auto) 0.2 Lymph # (Auto) 1.1 L [place] # (Auto) 2.0 H Eos # (Auto) 0.1 Baso # (Auto) 0.1 Abs Immat Gran (auto) 0.19 H Absolute Neuts (auto) 21.8 H Absolute Nucleated RBC 0.000 Nucleated RBC % (auto) 0.0 Smear Tech's Comments VERIFIED Anion Gap 17 Estim Creat Clear Calc 84.2 Estimated GFR > 60 Random Glucose 136 H Lactic Acid 0.9 Calcium 9.8 D Magnesium 1.9 Total Bilirubin 0.4 AST 22 ALT 17 Alkaline Phosphatase 78 Troponin I High Sens Total Protein 7.4 Albumin 4.0 Beta HCG, Quant < 2 Urine Color Urine Appearance Urine pH Ur Specific [place] Urine Protein Urine Glucose (UA) Urine Ketones Urine Blood Urine Nitrite Ur Leukocyte Esterase Urine RBC Urine WBC Ur Squamous Epith Cells Urine Bacteria Hyaline Casts Urine Opiates Screen Urine Fentanyl Screen Ur Barbiturates Screen Ur Phencyclidine Scrn Ur Amphetamines Screen U Benzodiazepines Scrn Urine Cocaine Screen U Marijuana (THC) Screen Ethyl Alcohol < 10 Monoscreen Influenza Type A (PCR) Influenza Type B (PCR) RSV RNA Qual (PCR) SARS-CoV-2 RNA (RT-PCR) S. pyogenes GrpA BALTAZAR 05/31/22 05/31/22 05/31/22 00:12 00:12 00:12 MCV MCH MCHC RDW Plt Count MPV Immature Gran % (Auto) Neut % (Auto) Lymph % (Auto) [place] % (Auto) Eos % (Auto) Baso % (Auto) Lymph # (Auto) [place] # (Auto) Eos # (Auto) Baso # (Auto) Abs Immat Gran (auto) Absolute Neuts (auto) Absolute Nucleated RBC Nucleated RBC % (auto) Smear Tech's Comments Anion Gap Estim Creat Clear Calc Estimated GFR Random Glucose Lactic Acid Calcium Magnesium Total Bilirubin AST ALT Alkaline Phosphatase Troponin I High Sens 3.7 Total Protein Albumin Beta HCG, Quant Urine Color Urine Appearance Urine pH Ur Specific [place] Urine Protein Urine Glucose (UA) Urine Ketones Urine Blood Urine Nitrite Ur Leukocyte Esterase Urine RBC Urine WBC Ur Squamous Epith Cells Urine Bacteria Hyaline Casts Urine Opiates Screen Urine Fentanyl Screen Ur Barbiturates Screen Ur Phencyclidine Scrn Ur Amphetamines Screen U Benzodiazepines Scrn Urine Cocaine Screen U Marijuana (THC) Screen Ethyl Alcohol Monoscreen Negative Influenza Type A (PCR) NEGATIVE Influenza Type B (PCR) NEGATIVE RSV RNA Qual (PCR) NEGATIVE SARS-CoV-2 RNA (RT-PCR) NEGATIVE S. pyogenes GrpA BALTAZAR 05/31/22 05/31/22 05/31/22 00:14 02:14 02:14 MCV MCH MCHC RDW Plt Count MPV Immature Gran % (Auto) Neut % (Auto) Lymph % (Auto) [place] % (Auto) Eos % (Auto) Baso % (Auto) Lymph # (Auto) [place] # (Auto) Eos # (Auto) Baso # (Auto) Abs Immat Gran (auto) Absolute Neuts (auto) Absolute Nucleated RBC Nucleated RBC % (auto) Smear Tech's Comments Anion Gap Estim Creat Clear Calc Estimated GFR Random Glucose Lactic Acid Calcium Magnesium Total Bilirubin AST ALT Alkaline Phosphatase Troponin I High Sens Total Protein Albumin Beta HCG, Quant Urine Color Yellow Urine Appearance Clear Urine pH 5.5 Ur Specific [place] 1.025 Urine Protein Trace Urine Glucose (UA) Negative Urine Ketones Negative Urine Blood Moderate (2+) H Urine Nitrite Negative Ur Leukocyte Esterase Negative Urine RBC 3-5 H Urine WBC 0-5 Ur Squamous Epith Cells 6-10 Urine Bacteria None Seen Hyaline Casts 0-2 Urine Opiates Screen POSITIVE H Urine Fentanyl Screen Not Detected Ur Barbiturates Screen Not Detected Ur Phencyclidine Scrn Not Detected Ur Amphetamines Screen Not Detected U Benzodiazepines Scrn Not Detected Urine Cocaine Screen Not Detected U Marijuana (THC) Screen Not Detected Ethyl Alcohol Monoscreen Influenza Type A (PCR) Influenza Type B (PCR) RSV RNA Qual (PCR) SARS-CoV-2 RNA (RT-PCR) S. pyogenes GrpA BALTAZAR Positive A Imaging Radiologist's Impressions: Impressions Head CT 05/31/22 01:55 IMPRESSION: No acute intracranial abnormalities. No intracranial hemorrhage. Abdomen/Pelvis CT 05/31/22 02:05 IMPRESSION: IV contrast enhanced CT of the abdomen and pelvis: *No acute traumatic abnormalities identified. *Mild concentric mural thickening and submucosal mural stratification of the cecum. Findings may represent the sequela of remote bowel inflammatory changes. Overlying mild cecal acute inflammatory changes could additionally be present. The appendix is not visualized. Findings are most likely represent chronic mural hypertrophy related to previous inflammatory changes. *Small hiatal hernia unchanged compared with 07/02/2020. Status post gastric sleeve resection and possible fundoplication. Chest CT 05/31/22 02:05 IMPRESSION: CT neck: *Marked diffuse prominence of the palatine tonsils bilaterally which may correlate with pharyngitis/tonsillitis. No tonsillar or peritonsillar fluid collections. Enlargement of the tonsils results in narrowing of the airway to a minimum diameter of 5 mm. *Bilateral anterior cervical reactive lymphadenopathy which may be secondary to pharyngitis/tonsillitis. CT CHEST: *No acute traumatic abnormalities of the thorax. *Small hiatal hernia and moderate diffuse fluid dilatation of the thoracic esophagus. Suture material is noted in association with the stomach which is partially included in the image [id number] suggestive of a prior gastric sleeve resection and possible fundoplication. Soft Tissue Neck CT 05/31/22 02:05 IMPRESSION: CT neck: *Marked diffuse prominence of the palatine tonsils bilaterally which may correlate with pharyngitis/tonsillitis. No tonsillar or peritonsillar fluid collections. Enlargement of the tonsils results in narrowing of the airway to a minimum diameter of 5 mm. *Bilateral anterior cervical reactive lymphadenopathy which may be secondary to pharyngitis/tonsillitis. CT CHEST: *No acute traumatic abnormalities of the thorax. *Small hiatal hernia and moderate diffuse fluid dilatation of the thoracic esophagus. Suture material is noted in association with the stomach which is partially included in the image [id number] suggestive of a prior gastric sleeve resection and possible fundoplication. Assessment and Plan (1) Pharyngitis: Status: Acute (2) GERD (gastroesophageal reflux disease): Status: Acute (3) Mood disorder: Status: Acute (4) Hypertension: Status: Acute (5) Syncope: Status: Acute Plan This is a 42-year-old female with pertinent history of mood disorder, essential hypertension, gastroesophageal reflux disease who presents to the emergency department for evaluation of severe throat ache. #. Sepsis due to acute pharyngitis/tonsillitis: Failed outpatient p.o. an tibiotic. Positive for strep pyogenes. Differential also includes gonorrhea. Will admit patient and initiate ceftriaxone empirically. Lactic acid and blood cultures obtained in the ER. Resuscitated with IV crystalloids as per sepsis protocol. Monitor cultures #. Orthostatics syncope in the setting of above. #. Essential hypertension: Hold in the setting of sepsis. Restart as appropriate #. Mood disorder: On Wellbutrin #. Gastroesophageal reflux disease: On PPI Med rec pending DVT prophylaxis: Lovenox 40 mg daily Full code Regular diet Admit as inpatient and will require two night minimum hospital stay for IV antibiotics Time Spent With Patient Time: Total time managing care of this patient today ____ minutes. Quality Stroke Does the patient have a stroke diagnosis?: No VTE Prior VTE?: No VTE Risk Level:: Medical - low VTE Device Contraindication: Treatment Not Indicated VTE Drug Contraindication: N/A - Med Ordered
[2022-05-31 03:52] LABS: CT PCR NOT DETECTED (Not Detect.); NG PCR NOT DETECTED (Not Detect.)
[2022-05-31] MEDS: cefTRIAXone sodium 1 GM in 0.9 % Sodium Chloride 50 ML IV (04:18)
[2022-05-31] MEDS: Morphine Sulfate 2 MG/ML CARTRIDGE IVPUSH ×3 (04:18→18:26)
[2022-05-31] MEDS: Throat Lozenge, Medicated LOZENGE 1 LOZENGE MUCOUS MEM (04:41)
--- NOTE | 2022-05-31 06:13 | PC.NURSE ---
med req completed
[2022-05-31 06:50] LABS: Basophils Percent Auto 0.2 % (0-2); Hematocrit 38.9 % (37.0-47.0); Imm Gran Abs Auto 0.34 X10*3/uL (0.00-0.03); Imm Gran Pct Auto 1.4 % (0.0-0.4); Lymphocytes Absolute Auto 0.6 X10*3/uL (1.2-4.9); Lymphocytes Percent Auto 2.4 % (20-40); Mean Corpuscular HGB Conc 33.4 g/dl (31.0-35.0); Mean Corpuscular Hemoglobin 30.4 pg (27.0-33.0); Mean Corpuscular Volume 90.9 fL (80.0-98.0); Mean Platelet Volume 9.3 fL (9.4-12.3); Monocytes Absolute Auto 0.6 X10*3/uL (0.1-1.2); Monocytes Percent Auto 2.3 % (2-11); Neutrophils Absolute Auto 22.5 x10*3/uL (2.0-8.3); Neutrophils Percent Auto 93.7 % (45-73); Platelet Count 310 X10*3/uL (160-400); Red Blood Count 4.28 X10*6/uL (4.20-5.50); Red Cell Distribution Width 13.8 % (11.0-16.0); SCAN SMEAR FLAG 1
[2022-05-31 07:11] LABS: MANUAL DIFF FLAG SCAN
[2022-05-31 07:19] LABS: Anion Gap 15 (12-20); Blood Urea Nitrogen 11 mg/dL (9-16); Carbon Dioxide 22 mmol/L (22-29); Chloride 106 mmol/L (96-108); Creatinine Clr Calc Pharmacy 106.5; Estimated Glomerular Filt Rate > 60; Glucose Random 176 mg/dL (60-115); Potassium 3.9 mmol/L (3.3-5.1); Sodium 139 mmol/L (135-145)
[2022-05-31 07:28] LABS: Calcium 9.1 mg/dL (8.4-10.2)
--- NOTE | 2022-05-31 08:16 | PHA.MEDREC ---
Pharmacy Consult ? Medication Reconciliation Pharmacy has completed the medication reconciliation.
[2022-05-31] MEDS: Ketorolac Tromethamine 15 MG/ML VIAL IVPUSH ×3 (08:23→21:04)
[2022-05-31] MEDS: Enoxaparin Sodium 40 MG/0.4 ML SYRINGE SUBCUT (08:23)
--- NOTE | 2022-05-31 11:58 | PM.EVENT ---
Event Note Date of Service: 05/31/22 Event Note: Pt seen and examined. Admitted early this morning by Dr. Austin for strep pharyngitis with question of gonhorrhea pharyngitis with sepsis. Gonorrhea throat culture pending. Treated empirically with 1g ceftriaxone. Continue ceftriaxone 1g daily. WBC slightly improved since this am at 24.0. Reports pain is improved but still states 10/10, worse with swallowing. Denies any difficulty breathing. On exam, airway patent, 3+ tonsils, appears improved following dexamethasone. Will continue ketoralac IVpush and tramadol for mod pain and add morphine 2mg IV prn for severe pain. VSS. Sepsis appears resolved. Continue lovenox for DVT proph. Time Spent With Patient Time: Total time managing care of this patient today 15 minutes.
[2022-05-31] MEDS: methylPREDNISolone Sod Succ 40 MG/ML VIAL IVPUSH (17:05)
[2022-05-31] MEDS: Omeprazole 40 MG CAPSULE.DR PO (17:05)
[2022-06-01 02:07] VITALS: RESP 18
[2022-06-01] MEDS: Morphine Sulfate 2 MG/ML CARTRIDGE IVPUSH ×2 (02:07→08:03)
[2022-06-01] MEDS: cefTRIAXone sodium 1 GM in 0.9 % Sodium Chloride 50 ML IV (04:11)
[2022-06-01] MEDS: Ketorolac Tromethamine 15 MG/ML VIAL IVPUSH ×2 (04:48→11:44)
[2022-06-01] MEDS: Acetaminophen 325 MG TABLET 650 MG PO (04:54)
[2022-06-01] MEDS: Omeprazole 40 MG CAPSULE.DR PO (06:34)
[2022-06-01 06:37] LABS: MANUAL DIFF FLAG NO
[2022-06-01 06:40] LABS: Basophils Percent Auto 0.1 % (0-2); Hemoglobin 11.7 g/dl (12.0-16.0); Imm Gran Abs Auto 0.15 X10*3/uL (0.00-0.03); Imm Gran Pct Auto 0.7 % (0.0-0.4); Lymphocytes Absolute Auto 1.2 X10*3/uL (1.2-4.9); Lymphocytes Percent Auto 6.1 % (20-40); Mean Corpuscular HGB Conc 33.4 g/dl (31.0-35.0); Mean Corpuscular Hemoglobin 30.5 pg (27.0-33.0); Mean Corpuscular Volume 91.1 fL (80.0-98.0); Mean Platelet Volume 9.4 fL (9.4-12.3); Monocytes Absolute Auto 0.9 X10*3/uL (0.1-1.2); Monocytes Percent Auto 4.6 % (2-11); Neutrophils Percent Auto 88.5 % (45-73); Platelet Count 334 X10*3/uL (160-400); Red Blood Count 3.84 X10*6/uL (4.20-5.50); Red Cell Distribution Width 13.8 % (11.0-16.0); White Blood Count 20.3 X10*3/uL (4.8-10.8)
[2022-06-01 07:44] VITALS: BP 172/88; PULSE 63; RESP 20; TEMP 36.5; O2SAT 97
[2022-06-01] MEDS: buPROPion HCl XL 300 MG TAB.ER.24H PO (08:01)
[2022-06-01] MEDS: Enoxaparin Sodium 40 MG/0.4 ML SYRINGE SUBCUT (08:02)
[2022-06-01] MEDS: Mirabegron 25 MG TAB.ER.24H PO (08:02)
[2022-06-01] MEDS: Ferrous Sulfate 324 MG TABLET.DR PO (08:02)
[2022-06-01 08:23] VITALS: BP 148/90
--- NOTE | 2022-06-01 09:35 | MHC.CM.PN ---
CM met with Patient at bedside and spoke with her over the phone at [phone]. Patient lives in a Townhouse with her 2 disabled children ages 8 & 11 years of age and her goal is to return home, self care. CM has initiated and will follow for dc planning. Patient has received [employer] vax x2 and her PCP is Dr. Candice Vega.
[2022-06-01 11:07] VITALS: BP 130/79; PULSE 68; RESP 20; TEMP 36.6; O2SAT 96
[2022-06-01] MEDS: lisinopriL 20 MG TABLET PO (11:43)
[2022-06-01] MEDS: hydroCHLOROthiazide 25 MG TABLET PO (11:43)
--- NOTE | 2022-06-01 12:12 | P.DS_ITS ---
DS: Providers Provider Date of Service: 06/01/22 Date of admission: 05/31/22 03:43 Date of discharge: 06/01/22 Primary care physician: Candice Vega MD Admitting clinician: Addis Austin Attending physician on admission: Addis Austin Attending physician on discharge: [facility] Discharging clinician: Jacque Villarreal DS: Diagnosis Discharge Diagnosis (1) Pharyngitis: Status: Acute (2) GERD (gastroesophageal reflux disease): Status: Acute (3) Mood disorder: Status: Acute (4) Hypertension: Status: Acute (5) Syncope: Status: Acute DS: Summary Hospital Course Hospital Course: HPI on admission by Dr. Austin 05/31/22: This is a 42-year-old female with pertinent history of mood disorder, essential hypertension, gastroesophageal reflux disease who presents to the emergency department for evaluation of severe throat ache.? Patient states it started 2 days prior to presentation.? She was prescribed azithromycin by her PCP but her symptoms did not improve.? Her throat continued to progress and now she has mild difficulty in swallowing food.? Had strep throat as a child.? Does endorse unprotected oral intercourse.? Has had single partner for the last 1 year.? No history of STI in patient or partner but patient states she is concerned for gonococcal pharyngitis.? Has associated fever, chills, generalized malaise and easy fatigability.? Patient states she also had a syncopal episode when she tried to get up to go to her bathroom.? She felt dizzy, lightheaded and passed out briefly.? Unsure if she hit her head, not on blood thinners.? No chest pain, palpitations, tongue bite, urinary or bowel incontinence prior to the episode.? No postictal confusion.? She denies chest discomfort, palpitations, abdominal pain, shortness of breath, changes in urinary or bowel habits. Hospital course: Patient admitted for strep pharyngitis with sepsis and orthostatics syncope. Hospital course uneventful. Patient treated with 2 courses IV steroids including 8 mg dexamethasone and 40 mg methylprednisolone due to tonsillar edema with great improvement in airway patency. Intubation was not indicated and patient did not develop any respiratory distress. She did note improvement in pain with ketorolac IV, tramadol, and morphine. She was treated with 2 doses 1 g IV ceftriaxone. Sepsis resolved and patient hemodynamically stable. No events recorded on cardiac monitoring. Serologies for gonorrhea chlamydia negative, gonorrhea throat culture remains pending the patient was treated effectively for any gonococcal infection with ceftriaxone. She will be discharged on amoxicillin 500 mg twice daily for an additional 8 days. She is also prescribed ibuprofen 800 mg to use every 8 hours as needed for pain and swelling. Given short course of tramadol for severe pain only. Mass Pat reviewed and is appropriate. She is counseled on symptomatic management as well. Follow-up soon with PCP. Time spent discussing smoking cessation with patient: more than 10 minutes Status at Discharge Functional status at discharge: independent ambulation Overall status at discharge: patient is back to baseline Time Spent with Patient Time attestation: Total time managing care of this patient today ____ minutes. Discharge coordination time: Greater than 30 minutes Quality: Safe Use of Opioids Does Pt have an Active Cancer Diagnosis on the Problem List?: No Quality: Stroke Does the patient have a stroke diagnosis?: No Physical Exam Vital Signs: Vital Signs: Last Vital Signs Temp 97.9 F 06/01/22 11:07 Pulse 68 06/01/22 11:07 Resp 20 06/01/22 11:07 BP 130/79 06/01/22 11:07 Pulse Ox 96 06/01/22 11:07 O2 Del Method 06/01/22 11:07 BMI result Body Mass Index 40.6 Constitutional - Awake and Alert, No apparent distress Eyes - PERRLA, EOMI Mouth/throat: NO erythema. 1+ tonsils bilaterally, still with significant tonsillar exudate bilaterally, airway patent Cardiovascular - S1S2, RRR, No edema Respiratory - Normal lung expansion, Normal respiratory effort, No respiratory distress, CTA bilaterally Gastrointestinal - NT / ND; +BS; No rebound or guarding Extremities - no calf tenderness bilaterally, no swelling Skin - Warm/Dry Neurological - Alert & oriented x3 Psychological - Appropriate affect DS: Data Data Completed and Pending Labs on day of discharge: Laboratory Results - last 24 hr 06/01/22 06:27 WBC 20.3 H RBC 3.84 L Hgb 11.7 L Hct 35.0 L MCV 91.1 MCH 30.5 MCHC 33.4 RDW 13.8 Plt Count 334 MPV 9.4 Immature Gran % (Auto) 0.7 H Neut % (Auto) 88.5 H Lymph % (Auto) 6.1 L [place] % (Auto) 4.6 Eos % (Auto) 0.0 Baso % (Auto) 0.1 Lymph # (Auto) 1.2 [place] # (Auto) 0.9 Eos # (Auto) 0.0 Baso # (Auto) 0.0 Abs Immat Gran (auto) 0.15 H Absolute Neuts (auto) 18.0 H Absolute Nucleated RBC 0.000 Nucleated RBC % (auto) 0.0 Preliminary micro results at discharge 05/31/22 00:21 Blood Culture - Preliminary Blood - Venous No growth after 24 hours. 05/31/22 00:12 Blood Culture - Preliminary Blood - Venous No growth after 24 hours. Discharge Plan Discharge Anticipated Discharge Date/Time: 06/01/22 11:55 Patient Disposition: Home, Self-Care Discharge Diagnosis: Strep pharyngitis, orthostatic syncope Referrals: Candice Vega MD [Primary Care Provider] - 1 Week Discharge Medications: New amoxicillin 500 mg capsule 500 mg PO BID Qty: 16 0RF Rx Instructions: Take with food. Next dose due 7am 06/02 ibuprofen 800 mg tablet 800 mg PO Q8H PRN (Reason: pain) Qty: 30 0RF tramadol 50 mg tablet 50 mg PO Q8H PRN (Reason: severe pain) Qty: 10 0RF Continued lisinopril-hydrochlorothiazide 20-25 mg tablet 1 tab PO DAILY ferrous sulfate [FeroSul] 325 mg (65 mg iron) tablet 1 tab PO DAILY Myrbetriq 25 mg tablet extended release 24 hr 1 tab PO DAILY omeprazole 40 mg capsule,delayed release(DR/EC) 40 mg PO BID bupropion HCl 300 mg tablet extended release 24 hr 300 mg PO DAILY Discharge Orders: Discharge Order (Routine); Ordered 06/01/22 Ordered By: Jacque Villarreal Diet: Regular diet Activity on Discharge: As tolerated Stand Alone Forms: Patient Portal Discharge page Care Plan Goals: Continue abx to resolve strep pharyngitis Adequate fluid intake to prevent recurrent syncope Pain management Health Concerns: Strep pharyngitis Orhtostatic syncope Plan of Treatment: Strep pharyngitis -You were treated with 2 days of ceftriaxone for strep pharyngitis (your gonorrhea throat culture is still pending but would have effectively been treated by just 1 dose of ceftriaxone and blood work for gonorrhea and chlamydia was negative) -Complete antibiotic treatment amoxicillin 500mg twice daily x 8 days (Next dose due is 7am 06/02) -Warm salt water gargles -Ibuprofen 800mg three times daily WITH FOOD as needed for pain. If pain still unmanaged can use tramadol as needed for severe pain but ibuprofen should be first choice as this is anti-inflammatory -Hot tea with honey and throat spray -Follow up with PCP for possible ENT referral Orthostatic syncope -Drink adequate fluids to prevent recurrence and manage pain as above Assessment: As above
--- NOTE | 2022-06-01 12:22 | MHC.CM.PN ---
Patient has been medically cleared for dc to home today, self care.
[2022-06-05 11:54] LABS: N. gonorrhoeae RNA TMA, Throat NOT DETECTED
== END 2022-06-01 14:29 | disposition home or self-care (01) | DRG 720 ==
LOC: HO.ED 05-31 00:57 → HO.EDOVER 05-31 03:52 → HO.IMC 05-31 16:31
PROVIDERS: Physician Assistant; Admitting Provider Student in an Organized Health Care Education/Training Program; Emergency Provider Emergency Medicine; PCP Internal Medicine; Visit Provider Physician Assistant
DX: A41.9 Sepsis, unspecified organism (principal); F17.210 Nicotine dependence, cigarettes, uncomplicated; K21.9 Gastro-esophageal reflux disease without esophagitis; F39 Unspecified mood [affective] disorder; J02.0 Streptococcal pharyngitis; I95.1 Orthostatic hypotension; I10 Essential (primary) hypertension; Z20.822 Contact with and (suspected) exposure to COVID-19; Z98.84 Bariatric surgery status; Z71.6 Tobacco abuse counseling; Z56.0 Unemployment, unspecified; Z91.013 Allergy to seafood; Z79.899 Other long term (current) drug therapy
CPT/HCPCS: 0241U; 36415; 70450; 70491; 71260; 74177; 80048; 80053; 80307; 81001; 82077; 83605; 83735; 84484; 84702; 85025; 86308; 87040; 87491; 87591; 87651; 93005; 99285; J0696; J1100; J1650; J1885; J2270; J2920; Q9967

== ENCOUNTER 2022-06-02 10:30 | Outpatient (REF) | payer MEDICAID, SELFPAY | END 2022-06-02 10:31 | disposition home or self-care (01) | LOC: HO.US 10:30 | PROVIDERS: Visit Provider Surgery Vascular Surgery | DX: I83.893 Varicose veins of bilateral lower extremities with other complications (principal) | CPT/HCPCS: 93970 ==

== ENCOUNTER → 2022-08-04 09:11 | Outpatient (BNVA) | payer MEDICAID, SELFPAY | PROVIDERS: PCP Internal Medicine; Visit Provider Surgery Vascular Surgery | DX: I83.12 Varicose veins of left lower extremity with inflammation (principal) | CPT/HCPCS: 99212 ==

== ENCOUNTER → 2022-09-08 10:52 | Outpatient (BNVA) | payer MEDICAID, SELFPAY | PROVIDERS: PCP Internal Medicine; Visit Provider Nurse Practitioner Family | DX: G62.9 Polyneuropathy, unspecified (principal); M54.16 Radiculopathy, lumbar region; M47.816 Spondylosis without myelopathy or radiculopathy, lumbar region; M51.9 Unspecified thoracic, thoracolumbar and lumbosacral intervertebral disc disorder | CPT/HCPCS: 99202 ==

== ENCOUNTER 2022-09-22 12:39 | Outpatient (REF) | payer MEDICAID, SELFPAY ==
[2022-09-22 13:49] LABS: Estimated Average Glucose 140 mg/dL; Hemoglobin A1c % 6.5 %
[2022-09-22 14:14] LABS: Folate 5.2 ng/mL (> or = 4.0); Vitamin B12 374 pg/mL (200-900)
== END 2022-09-22 12:40 | disposition home or self-care (01) ==
LOC: HO.LAB 12:39
PROVIDERS: PCP Internal Medicine; Visit Provider Nurse Practitioner Family
DX: G62.9 Polyneuropathy, unspecified (principal)
CPT/HCPCS: 36415; 82607; 82746; 83036

== ENCOUNTER 2022-10-05 08:59 | Outpatient (REF) | payer MEDICAID, SELFPAY ==
--- NOTE | ~2022-10-05 | MR_ITS ---
MR LUMBAR SPINE WITHOUT CONTRAST CLINICAL INFORMATION: Lumbar region radiculopathy. COMPARISON: None available. TECHNIQUE: MRI of the lumbar spine was obtained using routine sequences without contrast. FINDINGS: Hypoplastic ribs at the lowermost thoracic type segment. There are 5 nonrib-bearing lumbar-type vertebral bodies. Lumbar alignment is normal. The vertebral body heights are maintained. There is moderate disc volume loss at L4-L5. There is disc desiccation at L3-L4 and L4-L5. Modic type I and Modic type II endplate signal changes at L4-L5. Conus terminates at the T12-L1 level. No significant extraspinal soft tissue findings. The L1-L2 and the L2-L3 disc contours are normal. There is no central canal stenosis and there is no foraminal stenosis at these levels. L3-L4: Shallow disc protrusion associated with an annular fissure mildly indents the ventral thecal sac. No central canal stenosis and no foraminal stenosis. L4-L5: There is a right paracentral/right lateral disc protrusion that compresses the traversing right L5 nerve root within the right subarticular zone and that results in severe proximal right-sided foraminal stenosis with compression of the exiting right L4 nerve root. Background annular disc bulge and moderate bilateral facet arthropathy. Mild to moderate central canal stenosis. Mild left foraminal encroachment. L5-S1: Small annular disc bulge. Bilateral facet arthropathy. Epidural lipomatosis significantly effaces the thecal sac. No foraminal stenosis. MR/MR lumbar spine wo con IMPRESSION: * At L4-L5, there is a right paracentral/right lateral disc protrusion that compresses the traversing right L5 nerve root within the right subarticular zone and that results in severe proximal right-sided foraminal stenosis with compression of the exiting right L4 nerve root. Mild to moderate central canal stenosis at this level. * At L5-S1, epidural lipomatosis significantly effaces the thecal sac. * At L3-L4, there is a shallow disc protrusion associated with an annular fissure that mildly indents the ventral thecal sac. 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
== END 2022-10-05 09:00 | disposition home or self-care (01) ==
LOC: HO.MRI 08:59
PROVIDERS: PCP Internal Medicine; Visit Provider Nurse Practitioner Family
DX: M54.16 Radiculopathy, lumbar region (principal)
CPT/HCPCS: 72148

== ENCOUNTER 2022-10-13 11:01 | Outpatient (REF) | payer MEDICAID, SELFPAY ==
[2022-10-13 11:10] LABS: MANUAL DIFF FLAG NO
[2022-10-13 12:12] LABS: Basophils Percent Auto 0.4 % (0-2); Eosinophils Absolute Auto 0.4 X10*3/uL (0.0-0.4); Eosinophils Percent Auto 4.7 % (0-4); Hematocrit 40.8 % (37.0-47.0); Hemoglobin 13.3 g/dl (12.0-16.0); Imm Gran Abs Auto 0.03 X10*3/uL (0.00-0.03); Imm Gran Pct Auto 0.4 % (0.0-0.4); Lymphocytes Absolute Auto 2.4 X10*3/uL (1.2-4.9); Lymphocytes Percent Auto 29.3 % (20-40); Mean Corpuscular HGB Conc 32.6 g/dl (31.0-35.0); Mean Corpuscular Hemoglobin 30.3 pg (27.0-33.0); Mean Corpuscular Volume 92.9 fL (80.0-98.0); Mean Platelet Volume 9.7 fL (9.4-12.3); Monocytes Absolute Auto 0.6 X10*3/uL (0.1-1.2); Monocytes Percent Auto 7.3 % (2-11); Neutrophils Absolute Auto 4.7 x10*3/uL (2.0-8.3); Neutrophils Percent Auto 57.9 % (45-73); Platelet Count 392 X10*3/uL (160-400); Red Blood Count 4.39 X10*6/uL (4.20-5.50); Red Cell Distribution Width 13.5 % (11.0-16.0); White Blood Count 8.2 X10*3/uL (4.8-10.8)
[2022-10-13 13:06] LABS: Alanine Aminotransferase 21 U/L (0-31); Albumin Level 4.2 g/dL (3.5-5.0); Alkaline Phosphatase 69 U/L (39-117); Anion Gap 12 (12-20); Aspartate Amino Transferase 25 U/L (5-31); Bilirubin Total 0.5 mg/dL (0.0-1.0); Blood Urea Nitrogen 15 mg/dL (9-16); Calcium 9.8 mg/dL (8.4-10.2); Carbon Dioxide 29 mmol/L (22-29); Chloride 104 mmol/L (96-108); Cholesterol 196 mg/dL; Estimated Glomerular Filt Rate > 60; Glucose Random 108 mg/dL (60-115); HDL Cholesterol 41 mg/dL; LDL Cholesterol Calculated 134 mg/dl; Potassium 4.2 mmol/L (3.3-5.1); Sodium 141 mmol/L (135-145); Thyroid Stimulating Hormone 1.36 uIU/mL (0.32-4.0); Total Protein 7.3 g/dL (6.5-8.0); Triglycerides 107 mg/dL
== END 2022-10-13 11:02 | disposition home or self-care (01) ==
LOC: HO.LAB 11:01
PROVIDERS: PCP Internal Medicine; Visit Provider Internal Medicine
DX: F32.9 Major depressive disorder, single episode, unspecified (principal); G44.209 Tension-type headache, unspecified, not intractable; M72.2 Plantar fascial fibromatosis; R53.83 Other fatigue
CPT/HCPCS: 36415; 80053; 80061; 84443; 85025

== ENCOUNTER 2022-12-15 13:36 | Outpatient (REF) | payer MEDICAID, SELFPAY ==
[2022-12-15 15:35] LABS: HCG Quantitative < 2 mIU/mL
== END 2022-12-15 13:37 | disposition home or self-care (01) ==
LOC: HO.LAB 13:36
PROVIDERS: PCP Internal Medicine; Visit Provider Internal Medicine
DX: I10 Essential (primary) hypertension (principal); N91.2 Amenorrhea, unspecified
CPT/HCPCS: 36415; 84702

== ENCOUNTER 2022-12-22 18:57 | Emergency (ER) | payer MEDICAID, SELFPAY ==
--- NOTE | 2022-12-22 19:00 | ED.ANIMALBIT ---
HPI - Animal Bite General Chief Complaint: Animal Bite Stated Complaint: dog bite Time Seen by Provider: 12/22/22 19:08 Source: patient Mode of arrival: ambulatory Limitations: no limitations History of Present Illness HPI narrative: Patient is a 42-year-old female who presents emergency department for evaluation after a dog bite to the right foot by unknown animal. Reportedly dog is up-to-date on vaccination per hand folder. Patient reports last tetanus vaccination was greater than 5 years ago. Bleeding is currently controlled from the wound, denies any numbness tingling or cold sensation to the foot. She is able to weight bear however it is painful. She is able to move the toes on this foot. Related Data Home Medications Medication Instructions Recorded Confirmed omeprazole 40 mg capsule,delayed 40 mg PO BID 07/01/20 09/08/22 release ferrous sulfate 325 mg (65 mg 1 tab PO DAILY 05/31/22 09/08/22 iron) tablet (FeroSul) lisinopril 20 1 tab PO DAILY 05/31/22 09/08/22 mg-hydrochlorothiazide 25 mg tablet mirabegron 25 mg tablet,extended 1 tab PO DAILY 05/31/22 09/08/22 release 24 hr (Myrbetriq) naproxen 500 mg tablet 250 mg PO 08/04/22 09/08/22 Previous Rx's Medication Instructions Recorded ibuprofen 800 mg tablet 800 mg PO Q8H PRN pain #30 tabs 06/01/22 lidocaine 5 % topical patch 1 patch topical DAILY pain 30 days 09/08/22 #30 ea amoxicillin 875 mg-potassium 1 tab PO BID #13 tabs 12/22/22 clavulanate 125 mg tablet Allergies Allergy/AdvReac Type Severity Reaction Status Date / Time Shellfish Allergy Mild HIVES/RASH/ Uncoded 12/22/22 19:01 SWELLING Review of Systems Review of Systems: Constitutional: No fever, chills, weakness or fatigue. Skin: No rash or itching. Dog bite as noted in HPI Cardiovascular: No chest pain Respiratory: No shortness of breath Gastrointestinal: No abdominal pain Musculoskeletal: Localized pain to right foot Psychiatric: No depression or anxiety. Yes all other systems are reviewed and are negative PMFSH Past Medical History Attestation statement: The following information was validated with the patient. Source: old records reviewed Medical History GERD (gastroesophageal reflux disease) Mood disorder Rectal prolapse Surgical History H/O gastric bypass History of colonoscopy History of hernia repair Hx of cholecystectomy Hx of endoscopy LAP-BAND surgery status Family History Family History Father History of blood pressure problems Diabetes Mother Diabetes Son Leukemia Social History Social History Household Members: Family and Children Housing: House Do you presently have visiting nurse or other home services: No Alcohol intake: current Alcohol intake frequency: holidays/special occasions only Patient Tobacco Use Status: Current everyday Tobacco user Tobacco use type: Cigarette Cigarettes Per Day: 5 Years Smoked: 20 Substance Use Type: Prescription Drugs Advance Directives: No Advance Directives Information Provided: No service: No Current occupational status: unemployed Sexual orientation: Straight/Heterosexual Gender identity: Female Physical Exam ED Vital Signs: Vital Signs - 24 hr 12/22/22 19:01 Temperature 96.9 F Pulse Rate 78 Respiratory Rate 16 Blood Pressure 140/92 H Pulse Oximetry 99 Oxygen Delivery Method Room Air BMI result Body Mass Index 42.7 Appearance: Alert.?Oriented to person, place and time. No acute distress.?Normal affect. CVS: Heart sounds normal. Normal heart rate and rhythm.? Pulses normal.?? Respiratory: No respiratory distress.? Lung sounds clear to auscultation bilaterally?? Abdomen: Soft and non-tender. Skin: Skin warm and dry.? Normal skin color.? Right dorsal foot at the base of the 4/5 digit with 2 cm linear laceration from dog bite, bleeding controlled, subcutaneous tissue exposed. Extremities: Localized swelling to the area of dog bite, full AROM to the right ankle/foot and toes. 2+ DP/PT pulse bilaterally.? No calf ttp? Neuro: Moves all extremities spontaneously. Sensation intact bilaterally. Ambulates with antalgic gait. Course Course Course Narrative: RME: 42yo F w/PMHx GERD, HTN, colitis c/o dog bite to right foot around 3PM today while at dog park. Patient states hand folder reported dog was UTD on vaccines. Patient UTD on vaccines. Admits did not take her BP meds today. 2cm laceration noted to right foot dorsal aspect Area will need to be cleaned out/steri-stripped for closure. Augmentin ordered Full HPI, ROS and PE to be performed by primary ED provider. Medications Administered Discontinued Medications Generic Name Dose Route Start Last Admin Trade Name Joe PRN Reason Stop Dose Admin Amoxicillin/Clavulanate Potassium 875 mg 12/22/22 19:07 12/22/22 19:39 Amoxicillin/Potassium Clav 875 Mg Tablet PO 12/22/22 19:08 875 mg ONCE ONE Administration Medical Decision Making Medical Decision Making [facility] Narrative: Patient is a 42-year-old female presents emergency department for evaluation after a dog bite to the right foot, dog is unknown to patient. Per hand folder at the time of bite, dog is up-to-date on rabies vaccination. I had an at length discussion with patient regarding rabies vaccination however she declines at this time. Tetanus vaccine was updated. Wound was irrigated extensively with normal saline, small amounts of subcutaneous tissue was exposed. Steri-Strips for closure. Received 1st dose of Augmentin while in the emergency department and sent home with a course of Augmentin. She is able to move the digits on this foot. Low suspicion for fracture or dislocation, offered XR imaging however patient declined. Discussed strict return precautions. All questions answered. Stable for discharge. Differential Diagnosis Differential Diagnoses: The differential diagnosis associated with the presentation includes (Dog bite, fracture, dislocation, ligamentous injury) Tests considered The following testing was considered but not selected: I considered XR imaging as noted in narrative above Prescription Management I considered prescription management with: Antibiotic Discharge Plan Discharge Clinical Impression: Dog bite, Contusion of foot Patient Disposition: Home, Self-Care Instructions: Animal Bite (ED) Additional Instructions: A prescription for antibiotic was sent to your pharmacy, please begin this tomorrow morning and complete this entire course. If you develop fevers, chills, increased redness pain or swelling, pus-like drainage from the wound the new should have this re-evaluated. Your tetanus vaccine was updated today. You were offered a series of rabies vaccination however you declined. If you develop flu-like symptoms, weakness, fever, headache, loss of appetite, muscle cramping in you should be re-evaluated. You may return back to emergency department any new or worsening symptoms or concerns. Prescriptions: New amoxicillin-pot clavulanate 875-125 mg tablet 1 tab PO BID Qty: 13 0RF No Action lisinopril-hydrochlorothiazide 20-25 mg tablet 1 tab PO DAILY ferrous sulfate [FeroSul] 325 mg (65 mg iron) tablet 1 tab PO DAILY Myrbetriq 25 mg tablet extended release 24 hr 1 tab PO DAILY ibuprofen 800 mg tablet 800 mg PO Q8H PRN (Reason: pain) Qty: 30 0RF omeprazole 40 mg capsule,delayed release(DR/EC) 40 mg PO BID naproxen 500 mg tablet 250 mg PO lidocaine 5 % adhesive patch,medicated 1 patch topical DAILY 30 Days Qty: 30 3RF Referrals: Candice Vega MD [Primary Care Provider] -
[2022-12-22 19:01] VITALS: BP 140/92; PULSE 78; RESP 16; TEMP 36.1; O2SAT 99; BMI 42.7
[2022-12-22 20:48] VITALS: BP 137/84; PULSE 86; RESP 16; O2SAT 100
== END 2022-12-22 20:53 | disposition home or self-care (01) ==
PROVIDERS: Emergency Provider Internal Medicine; PCP Internal Medicine
DX: S91.351A Open bite, right foot, initial encounter (principal); S90.31XA Contusion of right foot, initial encounter; W54.0XXA Bitten by dog, initial encounter; Y93.89 Activity, other specified; Y92.89 Other specified places as the place of occurrence of the external cause; Y99.9 Unspecified external cause status; Z23 Encounter for immunization
CPT/HCPCS: 90471; 90715; 99284

== ENCOUNTER 2023-03-08 12:15 | Outpatient (REF) | payer MEDICAID, SELFPAY ==
[2023-03-08 14:43] LABS: Glucose Random 88 mg/dL (60-115)
[2023-03-08 14:51] LABS: Thyroid Stimulating Hormone 1.13 uIU/mL (0.32-4.0)
[2023-03-16 22:28] LABS: Cotinine, U 637 ng/mL; Nicotine, U 591 ng/mL
== END 2023-03-08 12:16 | disposition home or self-care (01) ==
LOC: HO.LAB 12:15
PROVIDERS: PCP Internal Medicine; Visit Provider Surgery
DX: E66.01 Morbid (severe) obesity due to excess calories (principal)
CPT/HCPCS: 80323; 82947; 84443

== ENCOUNTER 2023-03-10 13:38 | Outpatient (REF) | payer MEDICAID, SELFPAY ==
[2023-03-10 16:51] LABS: CT PCR NOT DETECTED (Not Detect.); NG PCR NOT DETECTED (Not Detect.)
[2023-03-11 14:30] LABS: BV Int Neg Control Negative (Negative); BV Int Pos Control Positive (Positive)
[2023-03-12 22:43] LABS: HPV mRNA E6/E7 rflx Not Detected (Not Detected)
== END 2023-03-10 13:39 | disposition home or self-care (01) ==
LOC: HO.LNP 13:38
PROVIDERS: PCP Internal Medicine; Visit Provider Obstetrics & Gynecology
DX: Z01.419 Encounter for gynecological examination (general) (routine) without abnormal findings (principal); Z11.51 Encounter for screening for human papillomavirus (HPV); Z11.3 Encounter for screening for infections with a predominantly sexual mode of transmission
CPT/HCPCS: 0353U; 87480; 87510; 87624; 87660; 88142; 99396

== ENCOUNTER 2023-03-10 13:41 | Outpatient (AMB) | payer MEDICAID, SELFPAY ==
--- NOTE | 2023-03-10 13:39 | MHC.OFFVIS ---
Intake Vital Signs 03/10/23 13:40 Height 5 ft 1 in Weight 234 lb BMI 44.2 Intake Visit Reasons: Annual/records in chart Intake Note: no concerns Senior Architect Required: No Information Interpreted: non-clinical & clinical Associate Java Developer: Associate Java Developer Present (Amy Mcfadden RMA) Accompanied by: Daughter Allergies Shellfish Allergy (Mild, Uncoded 03/10/23 13:46) HIVES/RASH/SWELLING Is last menstrual period known: Yes HPI HPI Comments History of Present Illness Details Presenting for annual exam. No complaints. The patient is interested in STD screen Last Pap/HPV was in 10/10 was LGSIL followed by colpo/biopsy/ECC which was negative No previous screening Mammogram PFSH Medical History GERD (gastroesophageal reflux disease) Mood disorder Rectal prolapse Surgical History H/O gastric bypass LAP-BAND surgery status History of hernia repair Hx of cholecystectomy Hx of endoscopy History of colonoscopy Family History Father History of blood pressure problems Diabetes Mother Diabetes Son Leukemia Social History Household Members: Family and Children Housing: House Do you presently have visiting nurse or other home services: No Alcohol intake: never Patient Tobacco Use Status: Current everyday Tobacco user Tobacco use type: Cigarette Cigarettes Per Day: 5 Years Smoked: 20 Substance Use Type: Prescription Drugs service: No Current occupational status: unemployed Sexual orientation: Straight/Heterosexual Gender identity: Female Female Reproductive History Menstrual Total pregnancies: 7 Full term: 2 Number of Living Children: 2 Ab spontaneous: 5 Date of last pap smear: 09/24/21 Review of Systems Const All systems reviewed & are unremarkable except as noted in HPI and below Card Reports as per HPI Resp Reports as per HPI GI Reports as per HPI and Reports no additional complaints Reports as per HPI Physical Exam Vital Signs: BMI result Body Mass Index 44.2 Const General: cooperative, healthy appearing and comfortable Chest Chest palpation & inspection: normal inspection of the chest and normal palpation of entire chest wall Breast/axilla inspection: normal inspection of the breasts and normal inspection of the axillae Breast/axilla palpation: normal palpation of the breasts, normal palpation of the axillae and no axillary lymphadenopathy Resp Effort & Inspection: normal respiratory effort Auscultation: clear to auscultation bilaterally Percussion: percussion normal Cardio Palpation: normal PMI Rate: regular rate Rhythm: regular rhythm Heart sounds: no murmurs and no rubs Peripheral pulses: Peripheral pulses 2+ throughout GI Inspection: Yes normal to inspection Palpation (GI): Soft to palpation, nontender, no guarding, not rigid and No hepatosplenomegaly present Percussion: Yes normal to percussion Auscultation: normal bowel sounds Rectal Exam - Female: deferred General: Yes bladder normal to palpation External Female Exam: No lesion Speculum Exam - Vagina: normal appearance of the vagina, normal palpation, normal vaginal discharge and not erythematous Speculum Exam - Cervix: normal appearance of the cervix and normal palpation Bimanual exam- vagina & uterus: normal bimanual exam, normal palpation, uterine size normal, bladder normal to palpation, consistency normal and normal palpation Bimanual Exam- Adnexa, other: normal adnexae, no masses and no tenderness Assessment & Plan Assessment & Plan (1) Well woman exam: Code(s): Z01.419 - Encounter for gynecological examination (general) (routine) without abnormal findings Plan: Cotesting done. Mammogram ordered. Counseled the patient about the recommended dietary allowance of 1000 mg of Calcium & 600 IU of vitamin D. The patient was instructed to perform monthly self-breast exams and to schedule an annual exam in a year; All questions answered and the patient verbalized understanding. Instructed the patient to schedule annual exam in a year (2) Screen for STD (sexually transmitted disease): Code(s): Z11.3 - Encounter for screening for infections with a predominantly sexual mode of transmission Plan: STD screening tests done includes: BV panel for trichomonas, GC/CT will send patient for serology std screening for HIV, RPR, Hep b s Ag, HepC Ab. Instructions given the patient to schedule a follow-up appointment for repeat serology screen in 6 months for possible false negatives. Orders: Orders MM screening mammo BI Today Z12.31 - Encounter for screening mammogram for malignant neoplasm of breast HIV Ab/Ag Today Z20.2 - Contact with and (suspected) exposure to infections with a predominantly sexual mode of transmission Hepatitis B Surface Antigen Today Z20.2 - Contact with and (suspected) exposure to infections with a predominantly sexual mode of transmission Syphilis Screen Today Z20.2 - Contact with and (suspected) exposure to infections with a predominantly sexual mode of transmission Hepatitis C Antibody Today Z20.2 - Contact with and (suspected) exposure to infections with a predominantly sexual mode of transmission Coding Level of Care Code Est Pt Prev Care 40-64y(46126) Diagnoses Well woman exam Z01.419 Screen for STD (sexually transmitted disease) Z11.3
[2023-03-10 13:40] VITALS: BMI 44.2
== END 2023-03-10 14:40 | disposition home or self-care (01) ==
PROVIDERS: PCP Internal Medicine; Visit Provider Obstetrics & Gynecology
DX: Z01.419 Encounter for gynecological examination (general) (routine) without abnormal findings (principal); Z11.3 Encounter for screening for infections with a predominantly sexual mode of transmission
CPT/HCPCS: 99396

== ENCOUNTER 2023-03-14 19:29 | Emergency (ER) | payer MEDICAID, SELFPAY ==
[2023-03-14 19:32] VITALS: BP 129/79; BP 138/70; PULSE 73; PULSE 78; RESP 18; TEMP 36.8; O2SAT 96; O2SAT 99; BMI 42.5
--- NOTE | 2023-03-14 20:59 | ED_ITS ---
HPI - General Adult General Chief complaint: Allergic Reaction Stated complaint: ALLERGIC REACTION Time Seen by Provider: 03/14/23 20:58 Source: patient Mode of arrival: EMS Limitations: no limitations History of Present Illness HPI narrative: 42 yo female hx of prior back pain but no sig PMH here with c/o testing positive for BV though asymptomatic took her dose of flagyl tonight around 530pm then a couple of hours later developed dizziness nausea and vomited x 1. She states she also has a URI and sinus pressure congestions x 4 days so she had old amoxicilin so she took that as well. MD complaint: vomiting and dizziness after taking flagyl Onset (ago): hour(s) (1) Location: head and abdomen Radiation: non-radiation Severity: mild Quality: aching Relieving factors: none Exacerbating factors: other (taking flagyl has never taken it before) Associated symptoms: nausea/vomiting and other (has nasal congestion and sinus pressure) Treatments prior to arrival: other (took flagyl and then amoxicillin denies ETOH use tonight) Related Data Home Medications Medication Instructions Recorded Confirmed omeprazole 40 mg capsule,delayed 40 mg PO BID 07/01/20 09/08/22 release lisinopril 20 1 tab PO DAILY 05/31/22 09/08/22 mg-hydrochlorothiazide 25 mg tablet mirabegron 25 mg tablet,extended 1 tab PO DAILY 05/31/22 09/08/22 release 24 hr (Myrbetriq) naproxen 500 mg tablet 250 mg PO 08/04/22 09/08/22 Previous Rx's Medication Instructions Recorded lidocaine 5 % topical patch 1 patch topical DAILY pain 30 days 09/08/22 #30 ea metronidazole 500 mg tablet 500 mg PO BID 7 days #14 tabs 03/12/23 fluticasone propionate 50 1 spray intranasal DAILY PRN nasal 03/14/23 mcg/actuation nasal congestion #16 grams spray,suspension metronidazole 0.75 % topical gel 1 appl topical DAILY 5 days #45 03/14/23 grams sodium chloride 0.65 % nasal spray 1 spray intranasal BID PRN nasal 03/14/23 aerosol (Saline Nasal) congestion #44 mL Allergies Allergy/AdvReac Type Severity Reaction Status Date / Time Shellfish Allergy Mild HIVES/RASH/ Uncoded 03/10/23 13:46 SWELLING Review of Systems Review of Systems: Constitutional : No Fever, No Chills, No Fatigue ENT/Mouth : No sore throat, No Rhinorrhea, pos sinus pressure, pos nasal congestion Eyes: No Eye Pain, No Swelling, No Redness Cardiovascular : No Chest Pain, No SOB, No Dyspnea on Exertion Respiratory : No Cough, No Sputum Gastrointestinal : pos Nausea, pos Vomiting, No Diarrhea, No abdominal Pain Genitourinary : No Dysuria, No Urinary Frequency, No Hematuria, Musculoskeletal : No joint pain, No Myalgias, No Joint Swelling Skin : No Skin Lesions, No rash Neuro : No Weakness, No Numbness, pos Dizziness, positive Headache Psych : No Anxiety/Panic, No Depression All other systems reviewed and are negative [facility] Past Medical History Attestation statement: The following information was validated with the patient. Medical History GERD (gastroesophageal reflux disease) Mood disorder Rectal prolapse Surgical History H/O gastric bypass LAP-BAND surgery status History of hernia repair Hx of cholecystectomy Hx of endoscopy History of colonoscopy Family History Family History Father History of blood pressure problems Diabetes Mother Diabetes Son Leukemia Social History Social History Household Members: Family and Children Housing: House Do you presently have visiting nurse or other home services: No Alcohol intake: current Alcohol intake frequency: holidays/special occasions only Patient Tobacco Use Status: Current everyday Tobacco user Tobacco use type: Cigarette Cigarettes Per Day: 5 Years Smoked: 20 Smoked in Last 30 Days: Yes Use of substances other than those prescribed or required for medical reasons: No Substance Use Type: Prescription Drugs Advance Directives: No Advance Directives Information Provided: No service: No Current occupational status: unemployed Sexual orientation: Straight/Heterosexual Gender identity: Female Physical Exam ED Vital Signs: Vital Signs - 24 hr 03/14/23 19:32 03/14/23 22:08 Temperature 98.3 F 98.0 F Pulse Rate 78 68 Respiratory Rate 18 16 Blood Pressure 129/79 138/83 Pulse Oximetry 96 98 Oxygen Delivery Method Room Air Room Air BMI result Body Mass Index 42.5 Appearance: Alert. Oriented X3. No acute distress. Eyes: Pupils equal, round and reactive to light. ENT: Pharynx normal. bilateral sinus ttp Neck: Normal inspection. Neck supple. CVS: Normal heart rate and rhythm. Pulses normal. Respiratory: No respiratory distress. Breath sounds normal. Abdomen: Soft and nontender. Skin: Skin warm and dry. Normal skin color. Normal skin turgor. Extremities: No lower extremity edema. No calf ttp Neuro: Oriented X 3. No motor deficit. No sensory deficit. no drift NIH Stroke Scale Internal: Initial- Upon Arrival Level of Consciousness: Alert Level of Consciousness Questions: Answers both questions correctly Level of Consciousness Commands: Performs both tasks correctly Best Gaze: Normal Visual: No visual loss Facial Palsy: Normal Motor Arm (Right): No drift Motor Arm (Left): No drift Motor Leg (Right): No drift Motor Leg (Left): No drift Limb Ataxia: Absent Sensory: Normal Best Language: No aphasia Dysarthia: Normal Extinction and Inattention: No abnormality Score: 0 Course Course Course Narrative: feels better stable for DC states she still feels a little dizzy but no ataxia, no drift, negative romberg we did talk about CT scan but she states she wants to go home and will come back in AM if dizzy she wants to go home and sleep. NIH 0 Medications Administered Discontinued Medications Generic Name Dose Route Start Last Admin Trade Name Jeremyq PRN Reason Stop Dose Admin Acetaminophen 975 mg 03/14/23 21:05 03/14/23 21:33 Acetaminophen 325 Mg Tablet PO 03/14/23 21:06 975 mg ONCE ONE Administration Diphenhydramine HCl 50 mg 03/14/23 21:05 03/14/23 21:32 Diphenhydramine Hcl 25 Mg Capsule PO 03/14/23 21:06 50 mg ONCE ONE Administration Ondansetron HCl 4 mg 03/14/23 21:05 03/14/23 21:32 Ondansetron Odt 4 Mg Tab.Rapdis TRANSLINGU 03/14/23 21:06 4 mg ONCE ONE Administration Medical Decision Making Medical Decision Making MDM Narrative: 42 yo female with hx of bariatric surgery, back pain, mood disorder here with c/o feeling dizzy and n/v after taking flagyl as well as she took an old amoxicillin. She is neuro intact. At this time doubt posterior stroke suspect it is either related to her medications vs sinus infection she is not having fevers. Will hold off new antibiotics and treat with saline washses and fluticasone. Hold PO flagyl and start on vaginal dosing as she is asymptomatoc. She has no CP/SOB to suggest ACS or VTE. She has no neuro findings to suggest posterior stroke. Differential Diagnosis Differential Diagnoses: The differential diagnosis associated with the presentation includes reaction to flagyl, sinus infection, antabuse type reaction though denies ETOH use Admission/Observation Consideration of admission/observation: Escalation of care including admission/observation considered feels better able to tolerate PO stable for DC Lab Data MDM Lab Attestation statement: I reviewed the patient's lab results. BV positive from last visit Labs: Lab Results 03/14/23 Range/Units 21:11 COVID-19 ([facility]) Negative (Negative) COVID-19 Clin Com See Note External Record Review External record reviewed: Inpatient record Prescription Management I considered prescription management with: Antibiotic and Other (fluticasone ) Discharge Plan Discharge Clinical Impression: Adverse reaction to drug, Sinus congestion Patient Disposition: Home, Self-Care Instructions: Upper Respiratory Infection (ED) Additional Instructions: STOP the oral metronidazole. use saline washes and nasal spray to help with nasal congestion. return for difficulty breathing, vomiting, severe headaches, numbness, weakness or any other concerns. if you have fevers or no improvement with the nasal spray and washes in 48 hours you may need further treatment please reach out to your doctor. COVID negative feels better Prescriptions: New metronidazole 0.75 % gel 1 appl topical DAILY 5 Days Qty: 45 0RF Rx Instructions: 5 grams once daily for 5 days fluticasone propionate 50 mcg/actuation spray,suspension 1 spray intranasal DAILY PRN (Reason: nasal congestion) Qty: 16 0RF Rx Instructions: administer into each nostril Saline Nasal 0.65 % aerosol,spray 1 spray intranasal BID PRN (Reason: nasal congestion) Qty: 44 0RF No Action metronidazole 500 mg tablet 500 mg PO BID 7 Days Qty: 14 0RF lisinopril-hydrochlorothiazide 20-25 mg tablet 1 tab PO DAILY Myrbetriq 25 mg tablet extended release 24 hr 1 tab PO DAILY omeprazole 40 mg capsule,delayed release(DR/EC) 40 mg PO BID naproxen 500 mg tablet 250 mg PO lidocaine 5 % adhesive patch,medicated 1 patch topical DAILY 30 Days Qty: 30 3RF Interventions: ED Discharge Assessment Last Done: 03/14/23 23:05 Discharge Date/Time: 03/14/23 23:05
[2023-03-14 21:29] LABS: COVID-19 Test Negative (Negative); IDNOW Serial# 08D9AD1C
[2023-03-14] MEDS: diphenhydrAMINE HCL 25 MG CAPSULE 50 MG PO (21:32)
[2023-03-14] MEDS: Ondansetron ODT 4 MG TAB.RAPDIS TRANSLINGU (21:32)
[2023-03-14] MEDS: Acetaminophen 325 MG TABLET 975 MG PO (21:33)
[2023-03-14 22:08] VITALS: BP 138/83; PULSE 68; RESP 16; TEMP 36.7; O2SAT 98
== END 2023-03-14 23:05 | disposition home or self-care (01) ==
PROVIDERS: Emergency Provider Emergency Medicine; PCP Internal Medicine
DX: R09.81 Nasal congestion (principal); R42 Dizziness and giddiness; M54.50 Low back pain, unspecified; R11.2 Nausea with vomiting, unspecified; R51.9 Headache, unspecified; Z20.822 Contact with and (suspected) exposure to COVID-19; Z20.828 Contact with and (suspected) exposure to other viral communicable diseases; Z79.899 Other long term (current) drug therapy
CPT/HCPCS: 87635; 99284

== ENCOUNTER 2023-04-08 11:08 | Outpatient (REF) | payer MEDICAID, SELFPAY ==
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
== END 2023-04-08 11:09 | disposition home or self-care (01) ==
LOC: HO.MAMMO 11:08
PROVIDERS: PCP Internal Medicine; Visit Provider Obstetrics & Gynecology
DX: Z12.31 Encounter for screening mammogram for malignant neoplasm of breast (principal)
CPT/HCPCS: 77063; 77067

== ENCOUNTER → 2023-04-08 11:15 | Outpatient (BNV) | payer MEDICAID, SELFPAY | PROVIDERS: PCP Internal Medicine; Visit Provider Radiology Diagnostic Radiology | DX: Z12.31 Encounter for screening mammogram for malignant neoplasm of breast (principal) | CPT/HCPCS: 77063; 77067 ==

== ENCOUNTER 2023-06-03 06:03 | Outpatient (REF) | payer MEDICAID, SELFPAY ==
--- NOTE | ~2023-06-03 | XR_ITS ---
EXAMINATION: XR HIP, RIGHT CLINICAL INFORMATION: Hip pain. COMPARISON: 05/31/2022 TECHNIQUE: AP and frog-leg lateral of the right hip. AP view of the pelvis. FINDINGS: Hip joints appear well preserved without fracture or malalignment. 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 Fragmented enthesopathic spur at the right greater trochanter. Small enthesophytes at the anterior and superior iliac spines. Facet arthropathy in the lower lumbar spine. XR/XR hip RT w PEL1V IMPRESSION: 1. No acute fracture or malalignment. 2. 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 3. Facet arthropathy in the lower lumbar spine.
== END 2023-06-03 06:04 | disposition home or self-care (01) ==
LOC: HO.HOSX 06:03
PROVIDERS: Visit Provider Physician Assistant
DX: M70.61 Trochanteric bursitis, right hip (principal)
CPT/HCPCS: 73502; 99212

== ENCOUNTER 2023-06-03 09:52 | Outpatient (AMB) | payer MEDICAID, SELFPAY ==
[2023-06-03 09:58] VITALS: BMI 42.5
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
== END 2023-06-03 10:43 | disposition home or self-care (01) ==
PROVIDERS: PCP Internal Medicine; Visit Provider Physician Assistant
DX: M70.61 Trochanteric bursitis, right hip (principal)
CPT/HCPCS: 99203

== ENCOUNTER 2023-06-08 12:26 | Outpatient (REF) | payer MEDICAID, SELFPAY ==
[2023-06-09 04:23] LABS: Syphilis Screen Nonreactive (Nonreactive)
[2023-06-09 04:48] LABS: HBsAGNum1 0.33 S/CO (0.00-0.99); HIV AB/AG Nonreactive (Nonreactive); HIV Num 1 0.05 S/CO (0.00-0.99); Hepatitis B Surface Antigen Negative (Negative); ~HepC Num1 0.08 S/CO (0.00-0.79); ~Hepatitis C Antibody Nonreactive (Nonreactive)
[2023-06-13 04:18] LABS: Cotinine, U 8 ng/mL; Nicotine, U 12 ng/mL
== END 2023-06-08 12:27 | disposition home or self-care (01) ==
LOC: HO.LAB 12:26
PROVIDERS: Surgery; Visit Provider Obstetrics & Gynecology
DX: F17.210 Nicotine dependence, cigarettes, uncomplicated (principal); Z20.2 Contact with and (suspected) exposure to infections with a predominantly sexual mode of transmission
CPT/HCPCS: 36415; 80323; 86780; 86803; 87340; 87389

== ENCOUNTER 2023-11-10 10:19 | Outpatient (REF) | payer MEDICAID, SELFPAY ==
[2023-11-10 10:36] LABS: MANUAL DIFF FLAG NO
[2023-11-10 11:08] LABS: Basophils Absolute Auto 0.1 X10*3/uL (0.0-0.2); Basophils Percent Auto 0.9 % (0-2); Eosinophils Absolute Auto 0.7 X10*3/uL (0.0-0.4); Hematocrit 38.5 % (37.0-47.0); Hemoglobin 12.4 g/dl (12.0-16.0); Imm Gran Abs Auto 0.01 X10*3/uL (0.00-0.03); Imm Gran Pct Auto 0.1 % (0.0-0.4); Lymphocytes Absolute Auto 2.4 X10*3/uL (1.2-4.9); Lymphocytes Percent Auto 35.8 % (20-40); Mean Corpuscular HGB Conc 32.2 g/dl (31.0-35.0); Mean Corpuscular Hemoglobin 30.2 pg (27.0-33.0); Mean Corpuscular Volume 93.7 fL (80.0-98.0); Mean Platelet Volume 9.4 fL (9.4-12.3); Monocytes Absolute Auto 0.6 X10*3/uL (0.1-1.2); Monocytes Percent Auto 8.8 % (2-11); Neutrophils Percent Auto 44.4 % (45-73); Platelet Count 385 X10*3/uL (160-400); Red Blood Count 4.11 X10*6/uL (4.20-5.50); White Blood Count 6.8 X10*3/uL (4.8-10.8)
[2023-11-10 11:50] LABS: HBS Num1 0.48 mIU/mL (0-7.99); ~Hepatitis B Surface Antibody NONREACTIVE (Nonreactive)
[2023-11-10 11:52] LABS: Alanine Aminotransferase 21 U/L (0-31); Albumin Level 4.1 g/dL (3.5-5.0); Alkaline Phosphatase 75 U/L (39-117); Anion Gap 13 (12-20); Aspartate Amino Transferase 23 U/L (5-31); Bilirubin Total 0.3 mg/dL (0.0-1.0); Blood Urea Nitrogen 11 mg/dL (9-16); Calcium 9.7 mg/dL (8.4-10.2); Carbon Dioxide 28 mmol/L (22-29); Chloride 105 mmol/L (96-108); Cholesterol 198 mg/dL (<200); Estimated Glomerular Filt Rate > 60; Glucose Random 114 mg/dL (60-115); HDL Cholesterol 47 mg/dL (>40); LDL Cholesterol Calculated 121 mg/dL (<100); Potassium 3.8 mmol/L (3.3-5.1); Sodium 142 mmol/L (135-145); Total Protein 7.4 g/dL (6.5-8.0); Triglycerides 152 mg/dL (<150)
[2023-11-11 09:29] LABS: Rubella IgG Antibody 7.86 Index; Rubeola IgG (Measles) >300.00 AU/mL
[2023-11-13 06:54] LABS: TS Negative Control Passed; TS Panel A 0; TS Panel B 0; TS Positive Control Passed; TSpotTB Negative (Negative)
== END 2023-11-10 10:20 | disposition home or self-care (01) ==
LOC: HO.LAB 10:19
PROVIDERS: PCP Internal Medicine; Visit Provider Internal Medicine
DX: Z00.01 Encounter for general adult medical examination with abnormal findings (principal); F17.200 Nicotine dependence, unspecified, uncomplicated; F32.9 Major depressive disorder, single episode, unspecified; G47.33 Obstructive sleep apnea (adult) (pediatric); I10 Essential (primary) hypertension; J01.90 Acute sinusitis, unspecified; J45.909 Unspecified asthma, uncomplicated
CPT/HCPCS: 36415; 80053; 80061; 85025; 86481; 86706; 86735; 86762; 86765; 86787

== ENCOUNTER 2024-03-03 10:13 | Outpatient (AMB) | payer MEDICAID, SELFPAY ==
--- NOTE | 2024-03-03 10:15 | MHC.OFFVIS ---
Vital Signs 03/03/24 10:18 Height 5 ft 1 in Weight 227 lb 1.218 oz BMI 42.9 BP 103/70 Blood Pressure Location Lt brachial Position Sitting Pulse 77 Intake Visit Reasons: Follow up Colitis Intake Note: Penelope presents in the office as a follow up for Colitis. CC: She states that the Dr told her that the stool is not coming out as it is supposed to. She states she gets dumping syndrome. 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 Allergies Shellfish Allergy (Mild, Uncoded 03/03/24 10:18) HIVES/RASH/SWELLING HPI HPI Follow up Colitis: Details: 43 yo female w hx of cholecystectomy, gastric sleeve, who I am seeing for f/u RECAP Admitted to [facility] 02/2019 with abdominal pain, like contractions, esplower abdomen she thought it was food posiioning, diarrhea, fever nausea, no vomiting no sick contacts\ she takes omeprazole for reflux which usu works she feels apriso has not helped much crohns in x 2 cousins, cousin with CRC 42, CT with severe colitis and enlarged LN, treated with levaquin and flagyl EGD 04/2019--mild gastritis colonoscopy--02/2020--mildly active colitis on bx celiac neg, mild anemia on labs, c diff neg, fecal anny 249 CTe: 06/2020--no evidence of IBD, post op sleeve, hiatal hernia noted Ba swallow ([facility]) - 11/11--severe gerd, possible gastroparesis, no hold up of barium tablet INTERIM: she has recurrent hiatal hernia she was told about conversion to gastric bypass she vomits all the time she has burning and feels 80 mg omeprazole doesnt always work she has learned to live with it she has loose stools all the time it can smell bad she can have contractions when has to stool EXAM: GENERAL: The patient is well developed and nontoxic, obese VITAL SIGNS:see workflow HEENT: Nonicteric sclerae, PERRLA, EOMI. Oropharynx clear. Moist mucous membranes. Conjunctivae appear well perfused. No thyroid mass. CHEST: Chest wall is nontender. HEART: Regular rate and rhythm without murmurs. LUNGS: Clear to auscultation bilaterally. ABDOMEN: Soft, positive bowel sounds, nontender, no organomegaly.no flank tenderness SKIN: No rash, no excessive bruising, petechiae, or purpura. NEUROLOGIC: Cranial nerves II-XII intact without motor/sensory deficit. Psych--normal affect A/P: 1/ posisble gastroparesis--maybe from prior surgery 2/ prior colitis PLAN; 1/ repeat labs incl nutrient levels 2. might need GES 3/ change omeprazole to nexium 4/ egd with pyloric dilation and colonoscopy PFSH Medical History GERD (gastroesophageal reflux disease) Mood disorder Rectal prolapse Surgical History H/O gastric bypass LAP-BAND surgery status History of hernia repair Hx of cholecystectomy Hx of endoscopy History of colonoscopy Family History Father History of blood pressure problems Diabetes Mother Diabetes Son Leukemia Social History Household Members: Family and Children Housing: House Do you presently have visiting nurse or other home services: No Alcohol intake: current Alcohol intake frequency: holidays/special occasions only Patient Tobacco Use Status: Current everyday Tobacco user Tobacco use type: Cigarette Cigarettes Per Day: 5 Years Smoked: 20 Substance Use Type: Prescription Drugs service: No Current occupational status: unemployed Sexual orientation: Straight/Heterosexual Gender identity: Female Physical Exam Vital Signs: Last Vital Signs Pulse 77 03/03/24 10:18 BP 103/70 03/03/24 10:18 BMI result Body Mass Index 42.9 Assessment & Plan Assessment & Plan (1) GERD (gastroesophageal reflux disease): Code(s): K21.9 - Gastro-esophageal reflux disease without esophagitis Category: Medical Plan: see above Orders: Orders Complete Blood Count Auto Diff Today K21.9 - Gastro-esophageal reflux disease without esophagitis, K31.84 - Gastroparesis Ferritin Today K21.9 - Gastro-esophageal reflux disease without esophagitis, K31.84 - Gastroparesis Vitamin A Today K21.9 - Gastro-esophageal reflux disease without esophagitis, K31.84 - Gastroparesis Lactoferrin, Fecal, Quant. Today K21.9 - Gastro-esophageal reflux disease without esophagitis, K31.84 - Gastroparesis, K51.50 - Left sided colitis without complications Pancreatic Elastase-1 Today K21.9 - Gastro-esophageal reflux disease without esophagitis, K31.84 - Gastroparesis Hemoglobin A1c Today K21.9 - Gastro-esophageal reflux disease without esophagitis, K31.84 - Gastroparesis HU Antibody Today K21.9 - Gastro-esophageal reflux disease without esophagitis, K31.84 - Gastroparesis Comprehensive Met. Panel Today K21.9 - Gastro-esophageal reflux disease without esophagitis, K31.84 - Gastroparesis, K75.81 - Nonalcoholic steatohepatitis ([facility]) Vitamin B12 and Folate Today K21.9 - Gastro-esophageal reflux disease without esophagitis, K31.84 - Gastroparesis C Reactive Protein Today K21.9 - Gastro-esophageal reflux disease without esophagitis, K31.84 - Gastroparesis Transglutaminase Ab IgG Today G89.29 - Other chronic pain, K21.9 - Gastro-esophageal reflux disease without esophagitis, K31.84 - Gastroparesis, R10.33 - Periumbilical pain Transglutaminase IgA Today K21.9 - Gastro-esophageal reflux disease without esophagitis, K31.84 - Gastroparesis Erythrocyte Sedimentation Rate Today K21.9 - Gastro-esophageal reflux disease without esophagitis, K31.84 - Gastroparesis Vitamin B3 (Niacin) Today K21.9 - Gastro-esophageal reflux disease without esophagitis, K31.84 - Gastroparesis Vitamin B5 (Pantothenic Acid) Today K21.9 - Gastro-esophageal reflux disease without esophagitis, K31.84 - Gastroparesis Vitamin B6 Today K21.9 - Gastro-esophageal reflux disease without esophagitis, K31.84 - Gastroparesis Vitamin C Today K21.9 - Gastro-esophageal reflux disease without esophagitis, K31.84 - Gastroparesis Vitamin E Today K21.9 - Gastro-esophageal reflux disease without esophagitis, K31.84 - Gastroparesis Zinc Today K21.9 - Gastro-esophageal reflux disease without esophagitis, K31.84 - Gastroparesis GI Panel Today K21.9 - Gastro-esophageal reflux disease without esophagitis, K31.84 - Gastroparesis, R19.7 - Diarrhea, unspecified CDiff Gene PCR Today K21.9 - Gastro-esophageal reflux disease without esophagitis, K31.84 - Gastroparesis, R19.7 - Diarrhea, unspecified TSH reflex Free T4 Today K21.9 - Gastro-esophageal reflux disease without esophagitis, K31.84 - Gastroparesis Medications: New sodium,potassium,mag sulfates 17.5-3.13-1.6 gram (Suprep Bowel Prep Kit) DILUTE; drink 1/2 at 6-8 pm and half at 11 PM- 1AM 354 mL 0RF ondansetron 4 mg PO Q8H PRN 30 tabs 0RF nausea and vomiting esomeprazole magnesium 40 mg PO DAILY 90 caps 1RF Coding Level of Care Code Est Pt Level 4 (38443) Diagnoses GERD (gastroesophageal reflux disease) K21.9
[2024-03-03 10:18] VITALS: BP 103/70; PULSE 77; BMI 42.9
== END 2024-03-03 11:20 | disposition home or self-care (01) ==
PROVIDERS: PCP Internal Medicine; Referring Provider Internal Medicine; Visit Provider Internal Medicine Gastroenterology
DX: K21.9 Gastro-esophageal reflux disease without esophagitis (principal)
CPT/HCPCS: 99214

== ENCOUNTER → 2024-03-03 10:13 | Outpatient (BNVA) | payer MEDICAID, SELFPAY | PROVIDERS: PCP Internal Medicine; Visit Provider Internal Medicine Gastroenterology | DX: K21.9 Gastro-esophageal reflux disease without esophagitis (principal); K31.84 Gastroparesis; K51.50 Left sided colitis without complications; R19.7 Diarrhea, unspecified | CPT/HCPCS: 99212 ==

== ENCOUNTER 2024-04-27 09:16 | Outpatient (AMB) | payer MEDICAID, SELFPAY ==
--- NOTE | 2024-04-27 09:46 | A.OFFVIS_ITS ---
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 No complaints. Last Pap/HPV was negative in 03/13 Last Mammogram was BI-RADS 2 in 04/12 Last colonoscopy was in 03/10, the patient is scheduled for another screening co lonoscopy in 07/15 [facility] Medical History GERD (gastroesophageal reflux disease) Mood disorder Rectal prolapse Surgical History H/O gastric bypass LAP-BAND surgery status History of hernia repair Hx of cholecystectomy Hx of endoscopy History of colonoscopy Family History Father History of blood pressure problems Diabetes Mother Diabetes Son Leukemia Social History Household Members: Family and Children Housing: House Do you presently have visiting nurse or other home services: No Alcohol intake: current Alcohol intake frequency: holidays/special occasions only Patient Tobacco Use Status: Current everyday Tobacco user Tobacco use type: Cigarette Cigarettes Per Day: 5 Years Smoked: 20 Substance Use Type: Prescription Drugs service: No Current occupational status: unemployed Sexual orientation: Straight/Heterosexual Gender identity: Female Female Reproductive History Menstrual Date of last pap smear: 03/11/23 Date of Mammogram: 04/08/23 Review of Systems Const All systems reviewed & are unremarkable except as noted in HPI and below Card Reports as per HPI Resp Reports as per HPI GI Reports as per HPI and Reports no additional complaints Reports as per HPI Physical Exam Vital Signs: Last Vital Signs BP 122/76 04/27/24 09:47 BMI result Body Mass Index 42.9 Const General: cooperative, healthy appearing and comfortable Chest Chest palpation & inspection: normal inspection of the chest and normal palpation of entire chest wall Breast/axilla inspection: normal inspection of the breasts and normal inspection of the axillae Breast/axilla palpation: normal palpation of the breasts, normal palpation of the axillae and no axillary lymphadenopathy Resp Effort & Inspection: normal respiratory effort Auscultation: clear to auscultation bilaterally Percussion: percussion normal Cardio Palpation: normal PMI Rate: regular rate Rhythm: regular rhythm Heart sounds: no murmurs and no rubs Peripheral pulses: Peripheral pulses 2+ throughout GI Inspection: Yes normal to inspection Palpation (GI): Soft to palpation, nontender, no guarding, not rigid and No hepatosplenomegaly present Percussion: Yes normal to percussion Auscultation: normal bowel sounds Rectal Exam - Female: deferred General: Yes bladder normal to palpation External Female Exam: No lesion Speculum Exam - Vagina: normal appearance of the vagina, normal palpation, normal vaginal discharge and not erythematous Speculum Exam - Cervix: normal appearance of the cervix and normal palpation Bimanual exam- vagina & uterus: normal bimanual exam, normal palpation, uterine size normal, bladder normal to palpation, consistency normal and normal palpati on Bimanual Exam- Adnexa, other: normal adnexae, no masses and no tenderness Assessment & Plan Assessment & Plan (1) Well woman exam: Code(s): Z01.419 - Encounter for gynecological examination (general) (routine) without abnormal findings Category: Medical Plan: Cotesting not indicated this year. Mammogram ordered. Counseled the patient about the recommended dietary allowance of 1000 mg of Calcium & 600 IU of vitamin D. The patient was instructed to perform monthly self-breast exams and to schedule an annual exam in a year; All questions answered and the patient verbalized understanding. Instructed the patient to schedule annual exam in a year Orders: Orders MM tomosynthesis screening BI Today Z12.31 - Encounter for screening mammogram for malignant neoplasm of breast Coding Level of Care Code Est Pt Prev Care 40-64y(75281) Diagnoses Well woman exam Z01.419
[2024-04-27 09:47] VITALS: BP 122/76; BMI 42.9
== END 2024-04-27 10:28 | disposition home or self-care (01) ==
LOC: HO.HWS 09:16
PROVIDERS: PCP Internal Medicine; Visit Provider Obstetrics & Gynecology
DX: Z01.419 Encounter for gynecological examination (general) (routine) without abnormal findings (principal)
CPT/HCPCS: 99396

== ENCOUNTER → 2024-04-27 09:16 | Outpatient (BNVA) | payer MEDICAID, SELFPAY | PROVIDERS: PCP Internal Medicine; Visit Provider Obstetrics & Gynecology | DX: Z01.419 Encounter for gynecological examination (general) (routine) without abnormal findings (principal) | CPT/HCPCS: 99396 ==

== ENCOUNTER 2024-05-27 08:26 | Outpatient (REF) | payer MEDICAID, SELFPAY ==
--- NOTE | ~2024-05-27 | MM_ITS ---
EXAMINATION: MM SCREENING DIGITAL BREAST TOMOSYNTHESIS, BILATERAL CLINICAL INFORMATION: Screening. Asymptomatic. COMPARISON: Mammography: Comparison is made with available priors TECHNIQUE: Digital breast mammography with tomosynthesis is performed in both the craniocaudal and mediolateral oblique views along with computer-aided detection (CAD). FINDINGS: There are scattered areas of fibroglandular density (ACR BI-RADS breast composition Category b). Left calcified axillary lymph nodes are stable. There are no significant masses, abnormal calcifications, or other abnormalities. MM/MM tomosynthesis screening BI IMPRESSION: No mammographic evidence of malignancy. ASSESSMENT: BI-RADS BI-RADS 2 - Benign Findings RECOMMENDATION: Routine annual mammography screening. 1 year F/U This examination should not preclude the clinical evaluation of a suspicious palpable abnormality. This patient's information was entered into a reminder system with a target due date for their next mammogram. Electronically signed by: Briana Riggs DO 06/02/2024 09:14 AM JERAMIE
== END 2024-05-27 08:27 | disposition home or self-care (01) ==
LOC: HO.MAMMO 08:26
PROVIDERS: PCP Internal Medicine; Visit Provider Obstetrics & Gynecology
DX: Z12.31 Encounter for screening mammogram for malignant neoplasm of breast (principal)
CPT/HCPCS: 77063; 77067

== ENCOUNTER → 2024-05-27 08:30 | Outpatient (BNV) | payer MEDICAID, SELFPAY | PROVIDERS: PCP Internal Medicine; Visit Provider Internal Medicine | DX: Z12.31 Encounter for screening mammogram for malignant neoplasm of breast (principal) | CPT/HCPCS: 77063; 77067 ==

== ENCOUNTER 2024-05-31 12:02 | Outpatient (REF) | payer MEDICAID, SELFPAY ==
[2024-05-31 12:53] LABS: MANUAL DIFF FLAG NO
[2024-05-31 13:01] LABS: Basophils Absolute Auto 0.1 X10*3/uL (0.0-0.2); Basophils Percent Auto 0.6 % (0-2); Eosinophils Absolute Auto 0.4 X10*3/uL (0.0-0.4); Eosinophils Percent Auto 4.9 % (0-4); Hematocrit 40.8 % (37.0-47.0); Hemoglobin 13.3 g/dl (12.0-16.0); Imm Gran Abs Auto 0.02 X10*3/uL (0.00-0.03); Imm Gran Pct Auto 0.3 % (0.0-0.4); Lymphocytes Absolute Auto 2.5 X10*3/uL (1.2-4.9); Lymphocytes Percent Auto 31.7 % (20-40); Mean Corpuscular HGB Conc 32.6 g/dl (31.0-35.0); Mean Corpuscular Hemoglobin 30.3 pg (27.0-33.0); Mean Corpuscular Volume 92.9 fL (80.0-98.0); Mean Platelet Volume 9.4 fL (9.4-12.3); Monocytes Absolute Auto 0.6 X10*3/uL (0.1-1.2); Monocytes Percent Auto 7.1 % (2-11); Neutrophils Absolute Auto 4.4 x10*3/uL (2.0-8.3); Neutrophils Percent Auto 55.4 % (45-73); Platelet Count 382 X10*3/uL (160-400); Red Blood Count 4.39 X10*6/uL (4.20-5.50); Red Cell Distribution Width 13.1 % (11.0-16.0); White Blood Count 7.9 X10*3/uL (4.8-10.8)
[2024-05-31 13:10] LABS: Estimated Average Glucose 123 mg/dL; Hemoglobin A1C 137.0596 umol/L; Hemoglobin A1c % 5.9 % (<6.0); Total Hemoglobin (HGBA1C) 3328.5483 umol/L
[2024-05-31 13:39] LABS: Erythrocyte Sedimentation Rate 14 MM/HR (0-20)
[2024-05-31 13:54] LABS: Alanine Aminotransferase 30 U/L (0-31); Albumin Level 4.4 g/dL (3.5-5.0); Alkaline Phosphatase 98 U/L (39-117); Anion Gap 11 (12-20); Aspartate Amino Transferase 33 U/L (5-31); Bilirubin Total 0.5 mg/dL (0.0-1.0); Blood Urea Nitrogen 11 mg/dL (9-16); C Reactive Protein 0.37 mg/dL (< or = 0.50); Calcium 10.3 mg/dL (8.4-10.2); Carbon Dioxide 29 mmol/L (22-29); Chloride 104 mmol/L (96-108); Estimated Glomerular Filt Rate > 60; Glucose Random 79 mg/dL (60-115); Potassium 3.4 mmol/L (3.3-5.1); Sodium 141 mmol/L (135-145); Total Protein 8.1 g/dL (6.5-8.0)
[2024-05-31 13:55] LABS: Cholesterol 207 mg/dL (<200); HDL Cholesterol 45 mg/dL (>40); LDL Cholesterol Calculated 134 mg/dL (<100); Triglycerides 142 mg/dL (<150)
[2024-05-31 14:13] LABS: Thyroid Stimulating Hormone 1.64 uIU/mL (0.32-4.0)
[2024-05-31 14:16] LABS: Ferritin 23 ng/mL (10-250); TSH reflex Free T4 1.57 uIU/mL (0.32-4.0)
[2024-05-31 14:25] LABS: Folate 7.7 ng/mL (> or = 4.0); Vitamin B12 873 pg/mL (200-900)
[2024-06-01 15:49] LABS: Transglutaminase Ab IgG <1.0 U/mL; Transglutaminase IgA <1.0 U/mL
[2024-06-03 18:28] LABS: Zinc 65 mcg/dL (60-130)
[2024-06-06 02:53] LABS: Vitamin A 70 mcg/dL (38-98)
[2024-06-07 09:52] LABS: Vitamin C 0.4 mg/dL (0.3-2.7)
[2024-06-07 18:32] LABS: Alpha-Tocopherol 13.7 mg/L (5.7-19.9); Beta-Gamma Tocopherol 1.1 mg/L (<=4.3)
[2024-06-08 16:09] LABS: Nicotinamide <20 ng/mL (see note); Vit B3 - Nicotinic Acid <20 ng/mL (see note); Vitamin B5 (Pantothenic Acid) <=40 ng/mL (<275)
[2024-06-10 03:58] LABS: Vitamin B6 3.5 ng/mL (2.1-21.7)
[2024-06-10 10:39] LABS: Hu Antibody Screen, IFA Serum NEGATIVE (NEGATIVE)
== END 2024-05-31 12:03 | disposition home or self-care (01) ==
LOC: HO.LAB 12:02
PROVIDERS: Internal Medicine Gastroenterology; PCP Internal Medicine; Visit Provider Internal Medicine
DX: K21.9 Gastro-esophageal reflux disease without esophagitis (principal); K31.84 Gastroparesis; R10.33 Periumbilical pain; G89.29 Other chronic pain; K75.81 Nonalcoholic steatohepatitis (NASH); D50.8 Other iron deficiency anemias; E66.01 Morbid (severe) obesity due to excess calories; F41.0 Panic disorder [episodic paroxysmal anxiety]; I10 Essential (primary) hypertension; J01.90 Acute sinusitis, unspecified; N30.00 Acute cystitis without hematuria; R51.9 Headache, unspecified
CPT/HCPCS: 36415; 80053; 80061; 82180; 82607; 82728; 82746; 83036; 84181; 84207; 84443; 84446; 84590; 84591; 84630; 85025; 85652; 86140; 86255; 86256; 86364; 87086

== ENCOUNTER 2024-10-21 10:32 | Emergency (ER) | payer MEDICAID, SELFPAY ==
[2024-10-21] VITALS (9 sets, daily range): BP systolic 97–162; BP diastolic 69–104; PULSE 65–79; RESP 16–158; TEMP 36.3–36.5; O2SAT 96–99; BMI 38.2
--- NOTE | ~2024-10-21 | CT_ITS ---
CLINICAL HISTORY: dizziness, lightheaded. blurry vision CT head without contrast Comparison: 05/31/2022 Findings: No intra-axial mass, midline shift, hydrocephalus, or acute hemorrhage. No significant atrophy-like change or white matter disease. There is no sinus or mastoid fluid. The orbits are unremarkable. There is no acute fracture. IMPRESSION: 1. No acute intracranial findings. This document has been electronically signed by: Helena Cordero MD on 10/21/2024 12:52:41
--- NOTE | ~2024-10-21 | XR_ITS ---
CLINICAL HISTORY: cough 1 view chest x-ray Comparison: None Findings: No consolidation or effusion. Heart size is normal. No acute fracture. IMPRESSION: 1. No acute findings. This document has been electronically signed by: Helena Cordero MD on 10/21/2024 12:55:55
--- NOTE | 2024-10-21 10:37 | ECG_ITS ---
Test Reason : dizziness Blood Pressure : */* mmHG Vent. Rate : 66 BPM Atrial Rate : 66 BPM P-R Int : 178 ms QRS Dur : 80 ms QT Int : 422 ms P-R-T Axes : 48 20 12 degrees QTcB Int : 442 ms Normal sinus rhythm Normal ECG When compared with ECG of 30-May-2022 23:42, Vent. rate has decreased by 45 bpm T wave inversion less evident in Inferior leads Referred By: Generic ED Physician Electronically Signed By: Tim Dickens
--- NOTE | 2024-10-21 10:52 | ED_ITS ---
HPI - Dizziness General Chief Complaint: Dizziness Stated Complaint: dizzy, nausea, ?dehydration Time Seen by Provider: 10/21/24 10:46 Source: patient, RN notes reviewed and old records reviewed Mode of arrival: ambulatory History of Present Illness ED Provider: Chelsie Deutsch PA-C HPI Narrative: 44-year-old female with a past medical history peripheral neuropathy, colitis, HTN, GERD, mood disorder, presenting to the ED complaining of room spinning dizziness and lightheadedness x awakening this morning with associated bilateral blurry vision, hand paresthesias, nausea, vomiting, and diarrhea. Also reports polydipsia and chest pain this morning. Denies headache, weakness, abdominal pain, dysuria/hematuria MD elicited complaint: dizziness and lightheadedness Related Data Home Medications ?Medication ?Instructions ?Recorded ?Confirmed lisinopril 20 1 tab PO DAILY 05/31/22 07/03/24 mg-hydrochlorothiazide 25 mg tablet mirabegron 25 mg tablet,extended 1 tab PO DAILY 05/31/22 07/03/24 release 24 hr (Myrbetriq) naproxen 500 mg tablet 500 mg PO BID PRN Pain 08/04/22 07/03/24 bupropion HCl 300 mg 24 hr tablet, 300 mg PO DAILY 03/03/24 07/03/24 extended release ferrous sulfate 325 mg (65 mg 325 mg PO DAILY 03/03/24 07/03/24 iron) tablet (FeroSul) Previous Rx's ?Medication ?Instructions ?Recorded lidocaine 5 % topical patch 1 patch topical DAILY pain 30 days 09/08/22 #30 ea fluticasone propionate 50 1 spray intranasal DAILY PRN nasal 03/14/23 mcg/actuation nasal congestion #16 grams spray,suspension sodium chloride 0.65 % nasal spray 1 spray intranasal BID PRN nasal 03/14/23 aerosol (Saline Nasal) congestion #44 mL ondansetron 4 mg disintegrating 4 mg PO Q8H PRN nausea and 03/03/24 tablet vomiting #30 tabs sodium,potassium,mag sulfates 17.5 See Rx Instructions PO .COMPLEX 03/03/24 gram-3.13 gram-1.6 gram oral soln #354 mL (Suprep Bowel Prep Kit) esomeprazole magnesium 40 mg 40 mg PO DAILY #90 caps 06/07/24 capsule,delayed release sodium,potassium,mag sulfates 17.5 See Rx Instructions PO .COMPLEX 07/03/24 gram-3.13 gram-1.6 gram oral soln #354 mL (Suprep Bowel Prep Kit) meclizine 25 mg tablet 25 mg PO TID PRN dizziness #14 tabs 10/21/24 Allergies Allergy/AdvReac Type Severity Reaction Status Date / Time Shellfish Allergy Mild HIVES/RASH/ Uncoded 10/21/24 10:36 SWELLING Review of Systems 2 Review of Systems: Yes all other systems are reviewed and are negative Constitutional: Constitutional: Reports as per HPI Neurologic: Denies Abnormal speech present [facility] Past Medical History Attestation statement: The following information was validated with the patient. Source: old records reviewed Medical History Peripheral neuropathy Colitis Lumbar spondylosis HTN (hypertension) GERD (gastroesophageal reflux disease) Mood disorder Rectal prolapse Surgical History H/O gastric bypass LAP-BAND surgery status History of hernia repair Hx of cholecystectomy Hx of endoscopy History of colonoscopy Family History Family History Father History of blood pressure problems Diabetes Mother Diabetes Son Leukemia Social History Social History Household Members: Family and Children Housing: House Do you presently have visiting nurse or other home services: No Alcohol intake: current Alcohol intake frequency: holidays/special occasions only Patient Tobacco Use Status: Current everyday Tobacco user Tobacco use type: Cigarette Cigarettes Per Day: 5 Years Smoked: 20 Substance Use Type: Prescription Drugs service: No Current occupational status: unemployed Sexual orientation: Straight/Heterosexual Gender identity: Female Physical Exam 2 Vital Signs: Vital Signs: Last Vital Signs Temp 97.7 F 10/21/24 16:35 Pulse 79 10/21/24 16:35 Resp 158 H 10/21/24 16:35 BP 150/98 H 10/21/24 16:35 Pulse Ox 96 10/21/24 16:35 O2 Del Method Room Air 10/21/24 16:35 BMI result Body Mass Index 38.2 Const: General: cooperative, healthy appearing and no acute distress O rientation/consciousness: patient oriented x3 Limitations: no limitations HEENT: Head: Yes normal to inspection and Yes atraumatic Ears: hearing grossly normal bilaterally General nose exam: Normal external nose present Face and sinus: Yes normal facial exam Mouth: Normal oral and palatal mucosa present Throat: Yes posterior oropharynx normal and Yes uvula midline Eyes: General: appearance normal, both eyes and all related structures P upils: Equal, round and reactive pupils present EOM: EOMs intact bilaterally Neck: Neck: Yes normal visual inspection and Yes no meningeal signs Resp: Effort & Inspection: normal respiratory effort and no respiratory distress Auscultation: clear to auscultation bilaterally, no crackles and no wheezes Cardio: Rate: regular rate Heart sounds: S1 normal heart sound present and S2 normal heart sound present GI: Inspection: Yes normal to inspection Palpation (GI): Soft to palpation, nontender, no guarding and not rigid Skin: Rashes: no rashes Wounds: no wounds Neuro: General: patient oriented x3, gait normal (slow, steady), tone normal, moves all extremities, no meningeal signs, no focal motor deficits and CN's II- XI intact bilaterally Cranial nerves: Yes CN's II-XII intact bilaterally and Yes Equal, round and reactive pupils present Cognition (Neuro): normal cognition Speech: No Abnormal speech present Gait exam (Neuro): Normal gait present Motor exam (neuro): 5/5 motor strength present throughout, Pronator motor function not present and no tremor noted Coordination: f [id number] test normal Romberg Test: Negative Extrem: General: Yes normal to inspection Course Course Course Narrative: 1217--labs reassuring including negative initial troponin -UA and negative -SARs negative -orthostatic vital signs positive due to heart rate. Will give IVF and repeat -1505--troponin x2 negative, mi unlikely. Tox screen positive for opiates and cocaine -CXR and head CT unremarkable. >> on re-evaluation patient reports symptomatic improvement. IV fluids still running. Upon completion will repeat orthostatics and re-evaluate -1626--repeat orthostatic vital signs negative. Patient reports symptomatic improvement. On re-evaluation requesting discharge. Recommended close PCP follow-up Results discussed with patient including worrisome signs and symptoms and strict return precautions, and when to return to the emergency department. They verbalized understanding and feel safe for discharge at this time. Medications Administered Discontinued Medications Generic Name Dose Route Start Last Admin Trade Name Freq PRN Reason Stop Dose Admin Hydrochlorothiazide 25 mg 10/21/24 11:14 10/21/24 11:30 Hydrochlorothiazide 25 Mg Tablet PO 10/21/24 11:15 Not Given ONCE ONE Protocol Sodium Chloride 1,000 mls @ 999 mls/hr 10/21/24 11:15 10/21/24 14:44 Ns IV 10/21/24 12:15 Infused .Q1H1M SUSAN Infusion Sodium Chloride 1,000 mls @ 999 mls/hr 10/21/24 12:30 10/21/24 16:25 Ns IV 10/21/24 13:30 Infused .Q1H1M SUSAN Infusion Lisinopril 20 mg 10/21/24 11:14 10/21/24 11:30 Lisinopril 20 Mg Tablet PO 10/21/24 11:15 Not Given ONCE ONE Protocol Meclizine HCl 25 mg 10/21/24 11:02 10/21/24 11:16 Meclizine Hcl 25 Mg Tablet PO 10/21/24 11:03 25 mg ONCE ONE Administration Medical Decision Making Medical Decision Making [facility] Narrative: 44-year-old female with a past medical history peripheral neuropathy, colitis, HTN, GERD, mood disorder, presenting to the ED complaining of room spinning dizziness and lightheadedness x awakening this morning with associated bilateral blurry vision, hand paresthesias, nausea, vomiting, and diarrhea. Also reports polydipsia and chest pain this morning. On exam hypertensive, denies taking morning medications today, NAD, nontoxic appearing, ambulating with slow steady gait, no ataxia, no focal neuro deficits. Lungs CTA. Talking in complete sentences. Concern for BPPV vs metabolic abnormalities vs subacute CVA, patient out of the window for TNK with unknown onset of symptoms vs gastroenteritis. Rule out ACS. Low suspicion for dissection or PE. Lower suspicion for SAH/CVT Plan: EKG, labs, UA, CXR, head CT, orthostatics, IVF, viral testing, re-evaluate Please refer to course for remaining clinical decision making, interpretation of labs/imaging results, and discussions with consultants and/or family members. Differential Diagnosis Differential Diagnoses: The differential diagnosis associated with the presentation includes As above Admission/Observation Consideration of admission/observation: Escalation of care including admission/observation considered Lab Data [facility] Lab Attestation statement: I reviewed the patient's lab results. 10/21/24 11:06 10/21/24 11:06 Labs: Lab Results 10/21/24 10/21/24 10/21/24 Range/Units 10:44 10:53 11:06 WBC 7.2 (4.8-10.8) X10*3/uL RBC 4.40 (4.20-5.50) X10*6/uL Hgb 13.4 (12.0-16.0) g/dl Hct 40.8 (37.0-47.0) % MCV 92.7 (80.0-98.0) fL MCH 30.5 (27.0-33.0) pg MCHC 32.8 (31.0-35.0) g/dl RDW 12.9 (11.0-16.0) % Plt Count 374 (160-400) X10*3/uL MPV 9.7 (9.4-12.3) fL Immature Gran % (Auto) 0.1 (0.0-0.4) % Neut % (Auto) 53.8 (45-73) % Lymph % (Auto) 33.7 (20-40) % [place] % (Auto) 6.5 (2-11) % Eos % (Auto) 5.3 H (0-4) % Baso % (Auto) 0.6 (0-2) % Lymph # (Auto) 2.4 (1.2-4.9) X10*3/uL [place] # (Auto) 0.5 (0.1-1.2) X10*3/uL Eos # (Auto) 0.4 (0.0-0.4) X10*3/uL Baso # (Auto) 0.0 (0.0-0.2) X10*3/uL Abs Immat Gran (auto) 0.01 (0.00-0.03) X10*3/uL Absolute Neuts (auto) 3.9 (2.0-8.3) x10*3/uL Absolute Nucleated RBC 0.000 (0.0-0.012) X10*3/uL Nucleated RBC % (auto) 0.0 (0.0-0.2) /100WBC Sodium 144 (135-145) mmol/L Potassium 4.1 D (3.3-5.1) mmol/L Chloride 108 (96-108) mmol/L Carbon Dioxide 27 (22-29) mmol/L Anion Gap 13 (12-20) BUN 11 (9-16) mg/dL Creatinine 0.71 (0.5-1.4) mg/dL Estim Creat Clear Calc 102.2 Estimated GFR > 60 POC Glucose 83 (60-115) mg/dL Random Glucose 86 (60-115) mg/dL Calcium 9.2 D (8.4-10.2) mg/dL Magnesium 2.0 (1.6-2.6) mg/dL Total Bilirubin 0.4 (0.0-1.0) mg/dL Direct Bilirubin 0.1 (0.0-0.5) mg/dL AST 38 H (5-31) U/L ALT 22 (0-31) U/L Alkaline Phosphatase 73 (39-117) U/L Troponin I High Sens < 2.7 (<3.5-17.0) ng/L Total Protein 7.2 (6.5-8.0) g/dL Albumin 4.0 (3.5-5.0) g/dL Urine Color Yellow Urine Appearance Clear Urine pH 5.0 (5.0-9.0) Ur Specific [place] >= 1.030 H (1.005-1.025) Urine Protein Negative (Neg-Trace) mg/dL Urine Glucose (UA) Negative (Negative) mg/dL Urine Ketones Trace (Negative) mg/dL Urine Blood Negative (Negative) Urine Nitrite Negative (Negative) Ur Leukocyte Esterase Trace H (Negative) Urine RBC 0-2 (0-2) /HPF Urine WBC 0-5 (0-5) /HPF Ur Squamous Epith Cells 6-10 (0-2) /HPF Urine Bacteria 2+ (None Seen) Hyaline Casts 0-2 (0-2) /LPF Urine Test NEGATIVE (NEGATIVE) Urine Opiates Screen (Not Detect) Ur Buprenorphine Scrn (Not Detect) ng/mL Ur Oxycodone Screen (Not Detect) ng/mL Urine Methadone Screen (Not Detect) ng/mL Urine Fentanyl Screen (Not Detect) Ur Barbiturates Screen (Not Detect) Ur Phencyclidine Scrn (Not Detect) Ur Amphetamines Screen (Not Detect) U Benzodiazepines Scrn (Not Detect) Urine Cocaine Screen (Not Detect) U Marijuana (THC) Screen (Not Detect) Ethyl Alcohol mg/dL Influenza Type A (PCR) NEGATIVE (Negative) Influenza Type B (PCR) NEGATIVE (Negative) RSV RNA Qual (PCR) NEGATIVE (Negative) SARS-CoV-2 RNA (RT-PCR) NEGATIVE (Negative) 10/21/24 10/21/24 10/21/24 Range/Units 12:05 13:12 13:17 WBC (4.8-10.8) X10*3/uL RBC (4.20-5.50) X10*6/uL Hgb (12.0-16.0) g/dl Hct (37.0-47.0) % MCV (80.0-98.0) fL MCH (27.0-33.0) pg MCHC (31.0-35.0) g/dl RDW (11.0-16.0) % Plt Count (160-400) X10*3/uL MPV (9.4-12.3) fL Immature Gran % (Auto) (0.0-0.4) % Neut % (Auto) (45-73) % Lymph % (Auto) (20-40) % [place] % (Auto) (2-11) % Eos % (Auto) (0-4) % Baso % (Auto) (0-2) % Lymph # (Auto) (1.2-4.9) X10*3/uL [place] # (Auto) (0.1-1.2) X10*3/uL Eos # (Auto) (0.0-0.4) X10*3/uL Baso # (Auto) (0.0-0.2) X10*3/uL Abs Immat Gran (auto) (0.00-0.03) X10*3/uL Absolute Neuts (auto) (2.0-8.3) x10*3/uL Absolute Nucleated RBC (0.0-0.012) X10*3/uL Nucleated RBC % (auto) (0.0-0.2) /100WBC Sodium (135-145) mmol/L Potassium (3.3-5.1) mmol/L Chloride (96-108) mmol/L Carbon Dioxide (22-29) mmol/L Anion Gap (12-20) BUN (9-16) mg/dL Creatinine (0.5-1.4) mg/dL Estim Creat Clear Calc Estimated GFR POC Glucose (60-115) mg/dL Random Glucose (60-115) mg/dL Calcium (8.4-10.2) mg/dL Magnesium (1.6-2.6) mg/dL Total Bilirubin (0.0-1.0) mg/dL Direct Bilirubin (0.0-0.5) mg/dL AST (5-31) U/L ALT (0-31) U/L Alkaline Phosphatase (39-117) U/L Troponin I High Sens < 2.7 (<3.5-17.0) ng/L Total Protein (6.5-8.0) g/dL Albumin (3.5-5.0) g/dL Urine Color Urine Appearance Urine pH (5.0-9.0) Ur Specific [place] (1.005-1.025) Urine Protein (Neg-Trace) mg/dL Urine Glucose (UA) (Negative) mg/dL Urine Ketones (Negative) mg/dL Urine Blood (Negative) Urine Nitrite (Negative) Ur Leukocyte Esterase (Negative) Urine RBC (0-2) /HPF Urine WBC (0-5) /HPF Ur Squamous Epith Cells (0-2) /HPF Urine Bacteria (None Seen) Hyaline Casts (0-2) /LPF Urine Test (NEGATIVE) Urine Opiates Screen POSITIVE H (Not Detect) Ur Buprenorphine Scrn Not Detected (Not Detect) ng/mL Ur Oxycodone Screen Not Detected (Not Detect) ng/mL Urine Methadone Screen Not Detected (Not Detect) ng/mL Urine Fentanyl Screen Not Detected (Not Detect) Ur Barbiturates Screen Not Detected (Not Detect) Ur Phencyclidine Scrn Not Detected (Not Detect) Ur Amphetamines Screen Not Detected (Not Detect) U Benzodiazepines Scrn Not Detected (Not Detect) Urine Cocaine Screen POSITIVE H (Not Detect) U Marijuana (THC) Screen Not Detected (Not Detect) Ethyl Alcohol < 10 mg/dL Influenza Type A (PCR) (Negative) Influenza Type B (PCR) (Negative) RSV RNA Qual (PCR) (Negative) SARS-CoV-2 RNA (RT-PCR) (Negative) Independent Interpretation I performed an independent interpretation of an: EKG, Plain X-Ray and CT Scan Radiology Impression Discussion of test interpretation with radiology: I have reviewed the radiologist's reading. External Record Review External record reviewed: Inpatient record, Office record, Outpatient record, Prior outpatient labs, Prior outpatient radiology, Primary care record and Outside ED record Tests considered The following testing was considered but not selected: As above Prescription Management I considered prescription management with: Other Chronic Conditions Patient?s care impacted by: Hypertension and Other (Colitis) Social Determinants Patient?s care significantly limited by Social Determinants of Health including: Other Social Determinant of Health Discharge Plan Discharge Clinical Impression: Lightheadedness, Dizziness Patient Disposition: Home, Self-Care Instructions: Lightheadedness (ED), Dizziness (ED) Additional Instructions: Your blood work and imaging studies are reassuring Make sure you are staying hydrated at home Meclizine is for dizziness, room spinning, take as needed Please have close follow up with your primary care doctor If her symptoms persist, worsen, recur, you have headache, weakness, vision change or loss return to the ED Prescriptions: New meclizine 25 mg tablet 25 mg PO TID PRN (Reason: dizziness) Qty: 14 0RF No Action esomeprazole magnesium 40 mg capsule,delayed release(DR/EC) 40 mg PO DAILY Qty: 90 0RF sodium,potassium,mag sulfates [Suprep Bowel Prep Kit] 17.5-3.13-1.6 gram recon soln See Rx Instructions PO .COMPLEX Qty: 354 0RF Rx Instructions: DILUTE each bottle with 16oz of water; drink first bottle 5pm evening before procedure AND second bottle at 11pm; follow each bottle with at least 32 oz.of water within 1 hour after each bottle lisinopril-hydrochlorothiazide 20-25 mg tablet 1 tab PO DAILY mirabegron [Myrbetriq] 25 mg tablet extended release 24 hr 1 tab PO DAILY fluticasone propionate 50 mcg/actuation spray,suspension 1 spray intranasal DAILY PRN (Reason: nasal congestion) Qty: 16 0RF Rx Instructions: administer into each nostril Saline Nasal 0.65 % aerosol,spray 1 spray intranasal BID PRN (Reason: nasal congestion) Qty: 44 0RF naproxen 500 mg tablet 500 mg PO BID PRN (Reason: Pain) lidocaine 5 % adhesive patch,medicated 1 patch topical DAILY 30 Days Qty: 30 3RF bupropion HCl 300 mg tablet extended release 24 hr 300 mg PO DAILY ferrous sulfate [FeroSul] 325 mg (65 mg iron) tablet 325 mg PO DAILY sodium,potassium,mag sulfates [Suprep Bowel Prep Kit] 17.5-3.13-1.6 gram recon soln See Rx Instructions PO .COMPLEX Qty: 354 0RF Rx Instructions: DILUTE; drink 1/2 at 6-8 pm and half at 11 PM- 1AM ondansetron 4 mg tablet,disintegrating 4 mg PO Q8H PRN (Reason: nausea and vomiting) Qty: 30 0RF Referrals: Candice Vega MD [Primary Care Provider] - 3 days Interventions: ED Discharge Assessment Last Done: 10/21/24 16:35 Discharge Date/Time: 10/21/24 16:35 Print Language: Lithuanian
[2024-10-21 11:01] LABS: Glucose, Whole Blood 83 mg/dL (60-115)
[2024-10-21 11:12] LABS: MANUAL DIFF FLAG NO
[2024-10-21 11:12] LABS: Appearance Urine Clear; Color Urine Yellow; Glucose Urine UA Negative (Negative); Leukocyte Esterase Urine Trace (Negative); Nitrite Urine Negative (Negative); Specific Gravity - Urine >= 1.030 (1.005-1.025); UMIC TRIGGER UACC YES; UPreg QC Valid YES; Urine Blood Negative (Negative); Urine Ketones Trace mg/dL (Negative); Urine Pregnancy NEGATIVE (NEGATIVE); Urine Protein Negative (Neg-Trace)
[2024-10-21 11:14] LABS: Basophils Percent Auto 0.6 % (0-2); Eosinophils Absolute Auto 0.4 X10*3/uL (0.0-0.4); Eosinophils Percent Auto 5.3 % (0-4); Hematocrit 40.8 % (37.0-47.0); Hemoglobin 13.4 g/dl (12.0-16.0); Imm Gran Abs Auto 0.01 X10*3/uL (0.00-0.03); Imm Gran Pct Auto 0.1 % (0.0-0.4); Lymphocytes Absolute Auto 2.4 X10*3/uL (1.2-4.9); Lymphocytes Percent Auto 33.7 % (20-40); Mean Corpuscular HGB Conc 32.8 g/dl (31.0-35.0); Mean Corpuscular Hemoglobin 30.5 pg (27.0-33.0); Mean Corpuscular Volume 92.7 fL (80.0-98.0); Mean Platelet Volume 9.7 fL (9.4-12.3); Monocytes Absolute Auto 0.5 X10*3/uL (0.1-1.2); Monocytes Percent Auto 6.5 % (2-11); Neutrophils Absolute Auto 3.9 x10*3/uL (2.0-8.3); Neutrophils Percent Auto 53.8 % (45-73); Platelet Count 374 X10*3/uL (160-400); Red Cell Distribution Width 12.9 % (11.0-16.0); White Blood Count 7.2 X10*3/uL (4.8-10.8)
[2024-10-21 11:14] LABS: Bacteria Urine 2+ (None Seen); Hyaline Casts Urine 0-2 /LPF (0-2); RBC Urine 0-2 /HPF (0-2); WBC Urine 0-5 /HPF (0-5)
[2024-10-21] MEDS: 0.9 % Sodium Chloride 1,000 ML 999 ML IV ×2 (11:16→14:44)
[2024-10-21] MEDS: Meclizine HCl 25 MG TABLET PO (11:16)
[2024-10-21 11:49] LABS: Troponin-I High Sensitivity < 2.7 ng/L (<3.5-17.0)
[2024-10-21 11:51] LABS: Influenza A PCR NEGATIVE (Negative); Influenza B PCR NEGATIVE (Negative); Resp Syncy Virus RNA Qual PCR NEGATIVE (Negative); SARS COV2 PCR INHOUSE NEGATIVE (Negative)
[2024-10-21 11:57] LABS: Anion Gap 13 (12-20); Blood Urea Nitrogen 11 mg/dL (9-16); Calcium 9.2 mg/dL (8.4-10.2); Carbon Dioxide 27 mmol/L (22-29); Chloride 108 mmol/L (96-108); Creatinine Clr Calc Pharmacy 102.2; Estimated Glomerular Filt Rate > 60; Glucose Random 86 mg/dL (60-115); Potassium 4.1 mmol/L (3.3-5.1); Sodium 144 mmol/L (135-145)
[2024-10-21 12:41] LABS: Ethanol < 10 mg/dL
[2024-10-21 12:59] LABS: Alanine Aminotransferase 22 U/L (0-31); Aspartate Amino Transferase 38 U/L (5-31); Bilirubin Direct 0.1 mg/dL (0.0-0.5); Bilirubin Total 0.4 mg/dL (0.0-1.0); Total Protein 7.2 g/dL (6.5-8.0)
[2024-10-21 13:42] LABS: Amphetamine Screen Urine Not Detected (Not Detect); Barbiturates, Urine Not Detected (Not Detect); Benzodiazepines Screen Urine Not Detected (Not Detect); Buprenorphine Scr Not Detected (Not Detect); Cannabinoid Screen Urine Not Detected (Not Detect); Cocaine Screen Urine POSITIVE (Not Detect); Fentanyl, urine Not Detected (Not Detect); Methadone Screen, Urine Not Detected (Not Detect); Opiate Screen Urine POSITIVE (Not Detect); Oxycodone Screen Urine Not Detected (Not Detect); Phencyclidine Screen Urine Not Detected (Not Detect)
[2024-10-21 13:50] LABS: Troponin-I High Sensitivity < 2.7 ng/L (<3.5-17.0)
[2024-10-21 14:24] LABS: Alkaline Phosphatase 73 U/L (39-117)
== END 2024-10-21 16:35 | disposition home or self-care (01) ==
PROVIDERS: Physician Assistant; Emergency Provider Emergency Medicine; PCP Internal Medicine
DX: R42 Dizziness and giddiness (principal); I10 Essential (primary) hypertension; K21.9 Gastro-esophageal reflux disease without esophagitis; Z79.899 Other long term (current) drug therapy; Z03.818 Encounter for observation for suspected exposure to other biological agents ruled out
CPT/HCPCS: 0241U; 36415; 70450; 71045; 80048; 80076; 80307; 81001; 81025; 82947; 83735; 84484; 85025; 93005; 96360; 96361; 99285

== ENCOUNTER → 2024-10-21 10:37 | Outpatient (BNV) | payer MEDICAID, SELFPAY | PROVIDERS: Emergency Provider Emergency Medicine; PCP Internal Medicine; Visit Provider Internal Medicine Cardiovascular Disease | DX: R42 Dizziness and giddiness (principal) | CPT/HCPCS: 93010 ==

== ENCOUNTER → 2024-10-21 11:02 | Outpatient (BNV) | payer MEDICAID, SELFPAY | PROVIDERS: Emergency Provider Emergency Medicine; PCP Internal Medicine; Visit Provider Radiology Diagnostic Radiology | DX: R42 Dizziness and giddiness (principal); H53.9 Unspecified visual disturbance; R05.9 Cough, unspecified | CPT/HCPCS: 70450; 71045 ==

== ENCOUNTER 2025-03-15 16:20 | Emergency (ER) | payer MEDICAID, SELFPAY ==
--- NOTE | ~2025-03-15 | CT_ITS ---
CLINICAL HISTORY: Abscess R Neck CT soft tissue neck with contrast Comparison: CT/SR - CT NECK SOFT TISSUE WITH IV CONTRAST - 05/31/22 01:50 EST Findings: The visualized intracranial contents are unremarkable. No prevertebral fluid. Epiglottis is within normal limits. Pharyngeal mucosal space and parapharyngeal fat are normal. Salivary glands are unremarkable. No sialoliths. Right thyroid lobe demonstrates the heterogeneous low-attenuation lesion, 1.6 x 0.8 cm, axial image number 86 of 121 series 3. The left thyroid lobe is homogeneous in enhancement. No consolidation at the lung apices. No acute fractures. Right dorsal subcutaneous dermal thickening with low-attenuation collection, 1.1 cm at C2 level, image number 33 of 121. IMPRESSION: 1. Right dorsal cellulitis with abscess collection, 1.1 cm, C2 level. Clinical correlation suggested. 2. Right thyroid lobe heterogeneous low-attenuation lesion, measuring 1.6 x 0.8 cm. Nonemergent thyroid ultrasound correlation suggested. This document has been electronically signed by: Cade Tirado MD on 03/15/2025 22:33:45
[2025-03-15 16:54] VITALS: BP 130/81; PULSE 74; RESP 18; TEMP 36.8; O2SAT 96; BMI 35.8
[2025-03-15 17:40] LABS: MANUAL DIFF FLAG NO
[2025-03-15 17:43] LABS: Hematocrit 36.9 % (37.0-47.0); Hemoglobin 12.3 g/dl (12.0-16.0); Imm Gran Abs Auto 0.04 X10*3/uL (0.00-0.03); Imm Gran Pct Auto 0.3 % (0.0-0.4); Lymphocytes Absolute Auto 3.3 X10*3/uL (1.2-4.9); Mean Corpuscular HGB Conc 33.3 g/dl (31.0-35.0); Mean Corpuscular Hemoglobin 30.8 pg (27.0-33.0); Mean Corpuscular Volume 92.3 fL (80.0-98.0); NRBC Abs Auto 0.000 X10*3/uL (0.0-0.012); NRBC Pct Auto 0.0 /100WBC (0.0-0.2); Platelet Count 319 X10*3/uL (160-400); Red Blood Count 4.00 X10*6/uL (4.20-5.50); White Blood Count 13.9 X10*3/uL (4.8-10.8)
[2025-03-15 17:58] LABS: Alanine Aminotransferase 19 U/L (0-31); Albumin Level 4.2 g/dL (3.5-5.0); Alkaline Phosphatase 76 U/L (39-117); Anion Gap 11 (12-20); Aspartate Amino Transferase 30 U/L (5-31); Blood Urea Nitrogen 10 mg/dL (9-16); Calcium 9.5 mg/dL (8.4-10.2); Carbon Dioxide 29 mmol/L (22-29); Chloride 104 mmol/L (96-108); Creatinine Clr Calc Pharmacy 109.2; Estimated Glomerular Filt Rate > 60; Potassium 3.3 mmol/L (3.3-5.1); Sodium 141 mmol/L (135-145); Total Protein 7.4 g/dL (6.5-8.0)
--- OUTSIDE RECORDS SUMMARY | 2025-03-15 20:02 | XMS_ITS | Clinical Summary ---
Author Organization [employer] Address [address] [place] [address] Care Team Providers Care Maintenance Scheduler Name Role Phone Unavailable Primary Care Provider Unavailabl e Immunizations Immunization Administration Dates Next Due DTP 07/22/1981, 9,1978,06/21 Hep B, Adolescent or Pediatric 09/19/1997 Influenza, IIV3, injectable 05/29/2017 MMR 02/19/1991,07/22/1981 OPV, Trivalent 07/22/1981, 9,1978,06/21 Pfizer Covid-19 Vaccine 12+ 10/28/2020, Pfizer Covid-19 Vaccine 12+ Bivalent 07/30/2022 Pneumococcal Polysaccharide PPSV23 05/29/2017 Td (adult), 5 Lf tetanus tox oid, preservative free, adsorbed 02/19/1994,03/21/1985 Tdap 01/05/2014 Social History Tobacco Use Types Packs/Day Years Used Date Smoking Tobacco: Never Assessed Comments Unknown Sex and Gender Information Value Date Recorded Sex Assigned at Female 07/30/2022 11:57 AM EST Legal Sex Female 11:53 AM EST Gender Identity Female 07/30/2022 11:57 AM EST Sexual Orientation Straight 07/30/2022 11 :57 AM EST Plan of Treatment Health Maintenance Due Date Last Done Comments CT Colonography 1978 Colonoscopy 1978 Colorectal Cancer Screening 1978 Depression Screening 1978 FIT DNA/Cologuard 1978 FIT 1978 FOBT 1978 HIV Screening 1978 Lipid Panel 1978 SDOH Screening 1978 Sigmoidoscopy 1978 Disability Screening 1978 Alcohol/Substance Use Screening 1990 Tobacco Screening 1990 Family Planning (PISQ) 1993 Hepatitis C Screening 1996 Hepatitis B Vaccines (2 of 3 - 19+ 3-dose series) 10/17/1997 09/19/1997 Pap Smear 1999 Cervical Cancer Screening 2008 HPV/Cotest 2008 Mammogram 2018 Pneumococcal Vaccine: Pediatrics (0 to 5 Years) and At-Risk Patients (6 to 49) Years (2 of 2 - PCV) 05/29/2018 05/29/2017 DTaP/Tdap/Td Vaccines (7 - Td or Tdap) 01/06/2024 01/05/2014, 02/19/1994, 03/21/1985, Additional history exists COVID-19 Vaccine (2024- season) 2025 07/30/2022, 10/28/2020, 10/07/2020 Influenza Vaccine (#1) 2025 05/29/2017 Zoster Vaccines (1 of 2) 2028 RSV Patients and Patients Aged 60 years or older (1 - 1-dose 75+ series) 2053 IPV Vaccines Completed 07/22/1981, 06/1978, 1978, Additional history exists HIB Vaccines Aged Out No longer eligi ble based on patient's age to complete this topic HPV Vaccines Aged Out No longer eligi ble based on patient's age to complete this topic Hepatitis A Vaccines Aged Out No long er eligible based on patient's age to complete this topic Meningococcal B Vaccine Aged Out No l onger eligible based on patient's age to complete this topic Meningococcal Vaccine Aged Out No nasir rachael eligible based on patient's age to complete this topic RSV under 20 months Aged Out No longe r eligible based on patient's age to complete this topic Rotavirus Vaccines Aged Out No longer eligible based on patient's age to complete this topic Insurance [facility] STANDARD
--- NOTE | 2025-03-15 20:07 | ED.SKABFB ---
HPI - Skin/Abscess/Foreign Bdy General Chief complaint: Skin/Abscess/Foreign Body Stated complaint: headache, dizziness, cyst nape of neck Time Seen by Provider: 03/15/25 20:02 Source: patient Mode of arrival: ambulatory Limitations: no limitations History of Present Illness ED Provider: Braxton MUNOZ HPI narrative: The patient is a 44-year-old female presenting to the ED reporting approximately 5 days ago she noted a pimple on her superior neck behind her right ear, patient reports she scratched the area to open the ?ellis?, the next day she noted some increased induration and discomfort. Patient reports since that time she has experienced markedly worsening swelling, erythema, pain, and tenderness with associated headache, and subjective fever/chills. The patient denies drainage from the area, denies associated vomiting, trismus, dysphagia, stridor, or noisy respirations. Related Data Home Medications ?Medication ?Instructions ?Recorded ?Confirmed lisinopril 20 1 tab PO DAILY 05/31/22 07/03/24 mg-hydrochlorothiazide 25 mg tablet mirabegron 25 mg tablet,extended 1 tab PO DAILY 05/31/22 07/03/24 release 24 hr (Myrbetriq) naproxen 500 mg tablet 500 mg PO BID PRN Pain 08/04/22 07/03/24 bupropion HCl 300 mg 24 hr tablet, 300 mg PO DAILY 03/03/24 07/03/24 extended release ferrous sulfate 325 mg (65 mg 325 mg PO DAILY 03/03/24 07/03/24 iron) tablet (FeroSul) Previous Rx's ?Medication ?Instructions ?Recorded lidocaine 5 % topical patch 1 patch topical DAILY pain 30 days 09/08/22 #30 ea fluticasone propionate 50 1 spray intranasal DAILY PRN nasal 03/14/23 mcg/actuation nasal congestion #16 grams spray,suspension sodium chloride 0.65 % nasal spray 1 spray intranasal BID PRN nasal 03/14/23 aerosol (Saline Nasal) congestion #44 mL ondansetron 4 mg disintegrating 4 mg PO Q8H PRN nausea and 03/03/24 tablet vomiting #30 tabs sodium,potassium,mag sulfates 17.5 See Rx Instructions PO .COMPLEX 03/03/24 gram-3.13 gram-1.6 gram oral soln #354 mL (Suprep Bowel Prep Kit) sodium,potassium,mag sulfates 17.5 See Rx Instructions PO .COMPLEX 07/03/24 gram-3.13 gram-1.6 gram oral soln #354 mL (Suprep Bowel Prep Kit) meclizine 25 mg tablet 25 mg PO TID PRN dizziness #14 tabs 10/21/24 esomeprazole magnesium 40 mg 40 mg PO DAILY #90 caps 11/01/24 capsule,delayed release acetaminophen 500 mg capsule 1,000 mg (2 x 500 mg) PO .q8 PRN 03/16/25 fever or pain #30 caps cephalexin 500 mg capsule 500 mg PO QID #28 caps 03/16/25 ibuprofen 600 mg tablet 600 mg PO Q8H PRN fever or pain 03/16/25 #30 tabs Allergies Allergy/AdvReac Type Severity Reaction Status Date / Time Shellfish Allergy Mild HIVES/RASH/ Uncoded 03/15/25 16:59 SWELLING Review of Systems Review of Systems: Yes all other systems are reviewed and are negative [facility] Past Medical History Medical History Peripheral neuropathy Colitis Lumbar spondylosis HTN (hypertension) GERD (gastroesophageal reflux disease) Mood disorder Rectal prolapse Surgical History H/O gastric bypass LAP-BAND surgery status History of hernia repair Hx of cholecystectomy Hx of endoscopy History of colonoscopy Family History Family History Father History of blood pressure problems Diabetes Mother Diabetes Son Leukemia Social History Social History Household Members: Family and Children Housing: House Do you presently have visiting nurse or other home services: No Alcohol intake: current Alcohol intake frequency: holidays/special occasions only Patient Tobacco Use Status: Current everyday Tobacco user Tobacco use type: Cigarette Cigarettes Per Day: 5 Years Smoked: 20 Substance Use Type: Prescription Drugs Advance Directives: No Advance Directives Information Provided: No Do you have a plan to hurt others: No Plan Patient : No service: No Current occupational status: unemployed Sexual orientation: Straight/Heterosexual Gender identity: Female Physical Exam Vital Signs: Vital Signs: Last Vital Signs Temp 97.5 F 03/15/25 22:19 Pulse 67 03/15/25 22:19 Resp 20 03/15/25 22:19 BP 112/66 03/15/25 22:19 Pulse Ox 97 03/15/25 22:19 O2 Del Method Room Air 03/15/25 22:19 BMI result Body Mass Index 35.8 CONSTITUTIONAL: The patient appears non-toxic, well nourished and in no acute distress. Vital signs as documented. HEAD: Atraumatic, normocephalic. EYES: EOMs grossly intact, pupils equal, conjunctiva clear, no exudate. ENT: Nares patent, no discharge. Airway patent, no audible stridor, visible mucosa is pink and moist without noted lesions. Posterior pharynx demonstrates midline nonedematous uvula, no tonsillar or peritonsillar swelling, no trismus. Neck has full range of motion, no nuchal rigidity. There is an approximate 5 cm x 4 cm vertically oriented ovoid area of markedly tender induration and erythema, without obvious fluctuance, noted to the right posterolateral superior neck overlying the posterior aspect of the right sternocleidomastoid muscle. NECK: trachea is midline, no obvious masses or gross abnormalities. CHEST: Symmetric movement, normal appearance. LUNGS: Non-labored work of breathing. CARDIAC: No evidence of hypoperfusion. ABDOMEN: Nondistended, no obvious injury. : Deferred. EXTREMITIES: Moves all extremities spontaneously without reported pain. No obvious injury or deformity noted. NEURO: Alert and oriented x3, CN II-XII appear grossly intact. Cerebellar Functioning grossly intact. Speech clear and appropriate. SKIN: Warm, dry, color appropriate. No other rashes or lesions noted. Medications Administered Discontinued Medications Generic Name Dose Route Start Last Admin Trade Name Freq PRN Reason Stop Dose Admin Sodium Chloride 1,000 mls @ 999 mls/hr 03/15/25 20:30 03/15/25 23:13 Ns IV 03/15/25 21:30 Infused .Q1H1M SUSAN Infusion Cefazolin Sodium/Dextrose 2 gm in 50 mls @ 100 mls/hr 03/15/25 20:20 03/15/25 22:10 Ancef IV 03/15/25 20:49 Infused ONCE ONE Infusion Iohexol 100 ml 03/15/25 22:00 03/15/25 22:00 Iohexol 350 Mg/Ml 100 Ml Infus..Btl IV 03/15/25 22:01 75 ml ONCE ONE Administration Ketorolac Tromethamine 15 mg 03/15/25 20:31 03/15/25 21:29 Ketorolac Tromethamine 15 Mg/Ml Vial IVPUSH 03/15/25 20:32 15 mg ONCE ONE Administration Lidocaine HCl 5 ml 03/15/25 22:46 03/16/25 00:29 Lidocaine Hcl 1 % Mpf 5 Ml Vial INFILTRATI 03/15/25 22:47 5 ml ONCE ONE Administration Morphine Sulfate 4 mg 03/15/25 20:20 03/15/25 21:29 Morphine Sulfate 4 Mg/Ml Cartridge IVPUSH 03/15/25 20:21 4 mg ONCE ONE Administration Protocol Lidocaine/Epinephrine/Tetracaine 3 ml 03/15/25 22:46 03/15/25 23:38 Lidocaine/Racepinep/Tetracaine 3 Ml Gel.Pf.Theresa TOPICAL 03/15/25 22:47 3 ml ONCE ONE Administration Medical Decision Making Medical Decision Making MDM Narrative: 8:26 PM 03/15/2025 (Lucia MUNOZ): The patient is a 44-year-old female presenting to the ED reporting approximately 5 days ago she noted a pimple on her superior neck behind her right ear, patient reports she scratched the area to open the ?ellis?, the next day she noted some increased induration and discomfort. Patient reports since that time she has experienced markedly worsening swelling, erythema, pain, and tenderness with associated headache, and subjective fever/chills. The patient denies drainage from the area, denies associated vomiting, trismus, dysphagia, stridor, or noisy respirations. On exam the patient has an approximate 5 cm x 4 cm vertically oriented ovoid area of markedly tender induration and erythema, without obvious fluctuance, noted to the right posterolateral superior neck overlying the posterior aspect of the right sternocleidomastoid muscle. The patient has painful but not impaired range of motion. Laboratory evaluation shows leukocytosis of 14,000, no significant anemia, electrolyte abnormality, or KALIN. The patient was evaluated with bedside ultrasound which does show approximate 1 cm x 2 cm fluid collection approximately 2.5 cm deep with superior and deep tracking fluid. Patient appears to be suffering from an abscess and cellulitis of the neck, we will require incision and drainage and antibiotic therapy. Due to location of the abscess, we will obtain CT soft tissue of the neck to ensure no proximity or involvement of deep structures of the neck prior to attempted incision and drainage. 12:40 AM 03/16/2025 (Lucia MUNOZ): Patient's CT confirm presence of fluid collection, with no evidence of muscle or deep structure involvement. Patient's abscess was successfully incised and drained approximately 5 cc of purulent material with excellent improvement in patient's pain and resolution of her painful range of motion of the neck. Of note CT also showed a incidental right thyroid heterogeneous low attenuation lesion measuring 1.6 x 0.8 cm, recommendation for nonemergent thyroid ultrasound suggested. Patient has been made aware of this finding and need for outpatient follow up with PCP. Admission/Observation Consideration of admission/observation: Escalation of care including admission/observation considered Lab Data MDM Lab Attestation statement: I reviewed the patient's lab results. 03/15/25 17:34 03/15/25 17:34 Labs: Lab Results 03/15/25 Range/Units 17:34 WBC 13.9 H (4.8-10.8) X10*3/uL RBC 4.00 L (4.20-5.50) X10*6/uL Hgb 12.3 (12.0-16.0) g/dl Hct 36.9 L (37.0-47.0) % MCV 92.3 (80.0-98.0) fL MCH 30.8 (27.0-33.0) pg MCHC 33.3 (31.0-35.0) g/dl RDW 13.2 (11.0-16.0) % Plt Count 319 (160-400) X10*3/uL MPV 9.3 L (9.4-12.3) fL Immature Gran % (Auto) 0.3 (0.0-0.4) % Neut % (Auto) 65.4 (45-73) % Lymph % (Auto) 24.0 (20-40) % [place] % (Auto) 7.3 (2-11) % Eos % (Auto) 2.7 (0-4) % Baso % (Auto) 0.3 (0-2) % Lymph # (Auto) 3.3 (1.2-4.9) X10*3/uL [place] # (Auto) 1.0 (0.1-1.2) X10*3/uL Eos # (Auto) 0.4 (0.0-0.4) X10*3/uL Baso # (Auto) 0.0 (0.0-0.2) X10*3/uL Abs Immat Gran (auto) 0.04 H (0.00-0.03) X10*3/uL Absolute Neuts (auto) 9.1 H (2.0-8.3) x10*3/uL Absolute Nucleated RBC 0.000 (0.0-0.012) X10*3/uL Nucleated RBC % (auto) 0.0 (0.0-0.2) /100WBC Sodium 141 (135-145) mmol/L Potassium 3.3 (3.3-5.1) mmol/L Chloride 104 (96-108) mmol/L Carbon Dioxide 29 (22-29) mmol/L Anion Gap 11 L (12-20) BUN 10 (9-16) mg/dL Creatinine 0.64 (0.5-1.4) mg/dL Estim Creat Clear Calc 109.2 Estimated GFR > 60 Random Glucose 85 (60-115) mg/dL Calcium 9.5 (8.4-10.2) mg/dL Total Bilirubin 0.4 (0.0-1.0) mg/dL Direct Bilirubin 0.2 (0.0-0.5) mg/dL AST 30 (5-31) U/L ALT 19 (0-31) U/L Alkaline Phosphatase 76 (39-117) U/L Total Protein 7.4 (6.5-8.0) g/dL Albumin 4.2 (3.5-5.0) g/dL Radiology Impression Discussion of test interpretation with radiology: I have reviewed the radiologist's reading. Radiologist Impression: CLINICAL HISTORY: Abscess R Neck CT soft tissue neck with contrast Comparison: CT/SR - CT NECK SOFT TISSUE WITH IV CONTRAST - 05/31/22 01:50 EST Findings: The visualized intracranial contents are unremarkable. No prevertebral fluid. Epiglottis is within normal limits. Pharyngeal mucosal space and parapharyngeal fat are normal. Salivary glands are unremarkable. No sialoliths. Right thyroid lobe demonstrates the heterogeneous low-attenuation lesion, 1.6 x 0.8 cm, axial image number 86 of 121 series 3. The left thyroid lobe is homogeneous in enhancement. No consolidation at the lung apices. No acute fractures. Right dorsal subcutaneous dermal thickening with low-attenuation collection, 1.1 cm at C2 level, image number 33 of 121. IMPRESSION: 1. Right dorsal cellulitis with abscess collection, 1.1 cm, C2 level. Clinical correlation suggested. 2. Right thyroid lobe heterogeneous low-attenuation lesion, measuring 1.6 x 0.8 cm. Nonemergent thyroid ultrasound correlation suggested. This document has been electronically signed by: Cade Tirado MD on 03/15/2025 22:33:45 External Record Review External record reviewed: Outpatient record Prescription Management I considered prescription management with: Pain Medication and Antibiotic Procedures Abscess I/D Site: neck Side (if applicable): right Local Anesthetic: lidocaine 1% and other anesthetic (LET Gel) Amount of anesthesia used (mL): 3 Technique: incised with blade (#11) and ultrasound guided Amount of fluid expressed (mL): 5 Sent for culture/gram staining?: No Irrigation: Yes Packing used?: iodoform Discharge Plan Discharge Clinical Impression: Right thyroid nodule Abscess of skin or subcutaneous tissue Qualifiers: Site of cutaneous abscess: neck Qualified Code(s): L02.11 - Cutaneous abscess of neck Cellulitis Qualifiers: Site of cellulitis: neck Qualified Code(s): L03.221 - Cellulitis of neck Patient Disposition: Home, Self-Care Instructions: Cellulitis (ED), Abscess Incision and Drainage (DC) Additional Instructions: Thank you for choosing [facility]'s Emergency Department for your care today. Thankfully your CT today showed no evidence of invasion of your neck abscess/cellulitis into the deep structures or muscles of your neck. Your laboratory evaluation also shows no evidence of a systemic infection. At this time there is no indication for admission to the hospital or continued ED observation, and it is safe to discharge you home. Your abscess was incised and drained, which should result in significant improvement in your pain. Your abscess was packed with gauze, please change the dressing on your abscess twice daily, but please be careful that the gauze packed in the abscess does not become dislodged by the dressing changes. If the packing does accidentally become dislodged, there was no need for panic or return to the ED. If packing remains in place you should follow up with your primary care provider or return to the ED in 2-3 days for removal of the packing. It is extremely important that you continue taking the antibiotic cephalexin as prescribed until finished. You should take alternating (staggered) doses of ibuprofen 600mg and Tylenol 1000mg every 4 hours as needed for any additional pain. Please stay well hydrated and get plenty of rest. Of note, your CT also showed an incidental finding of a right thyroid nodule measuring 1.6 x 0.8 cm. The radiologist recommends a nonemergent dedicated thyroid ultrasound to further evaluate this finding. Please follow up with your primary care physician for re-evaluation, additional management of your symptoms, scheduling of an outpatient thyroid ultrasound, and continued preventative care. If you do not have a primary care physician, please call the [facility] at [phone] to establish a new primary care physician. While waiting to establish your new primary care physician, you can call our [facility] at [phone] for non-emergency needs. Please return to the emergency department if you develop a severe or sudden change in your symptoms, a fever over 100.4 that does not improve with Tylenol or Ibuprofen, recurrent vomiting, or any other new or worsening symptoms or concerns. Prescriptions: New cephalexin 500 mg capsule 500 mg PO QID Qty: 28 0RF ibuprofen 600 mg tablet 600 mg PO Q8H PRN (Reason: fever or pain) Qty: 30 0RF acetaminophen 500 mg capsule 1,000 mg PO .q8 PRN (Reason: fever or pain) Qty: 30 0RF No Action sodium,potassium,mag sulfates [Suprep Bowel Prep Kit] 17.5-3.13-1.6 gram recon soln See Rx Instructions PO .COMPLEX Qty: 354 0RF Rx Instructions: DILUTE each bottle with 16oz of water; drink first bottle 5pm evening before procedure AND second bottle at 11pm; follow each bottle with at least 32 oz.of water within 1 hour after each bottle esomeprazole magnesium 40 mg capsule,delayed release(DR/EC) 40 mg PO DAILY Qty: 90 0RF lisinopril-hydrochlorothiazide 20-25 mg tablet 1 tab PO DAILY mirabegron [Myrbetriq] 25 mg tablet extended release 24 hr 1 tab PO DAILY meclizine 25 mg tablet 25 mg PO TID PRN (Reason: dizziness) Qty: 14 0RF fluticasone propionate 50 mcg/actuation spray,suspension 1 spray intranasal DAILY PRN (Reason: nasal congestion) Qty: 16 0RF Rx Instructions: administer into each nostril Saline Nasal 0.65 % aerosol,spray 1 spray intranasal BID PRN (Reason: nasal congestion) Qty: 44 0RF naproxen 500 mg tablet 500 mg PO BID PRN (Reason: Pain) lidocaine 5 % adhesive patch,medicated 1 patch topical DAILY 30 Days Qty: 30 3RF bupropion HCl 300 mg tablet extended release 24 hr 300 mg PO DAILY ferrous sulfate [FeroSul] 325 mg (65 mg iron) tablet 325 mg PO DAILY sodium,potassium,mag sulfates [Suprep Bowel Prep Kit] 17.5-3.13-1.6 gram recon soln See Rx Instructions PO .COMPLEX Qty: 354 0RF Rx Instructions: DILUTE; drink 1/2 at 6-8 pm and half at 11 PM- 1AM ondansetron 4 mg tablet,disintegrating 4 mg PO Q8H PRN (Reason: nausea and vomiting) Qty: 30 0RF Referrals: Candice Vega MD [Primary Care Provider, Internal Medicine] Clinical Impression: Abscess of skin or subcutaneous tissue; Cellulitis; Right thyroid nodule Print Language: Pakistani
[2025-03-15 21:29] VITALS: RESP 18
[2025-03-15] MEDS: iohexoL 350 MG/ML 100 ML INFUS..BTL IV (22:00)
[2025-03-15 22:19] VITALS: BP 112/66; PULSE 67; RESP 20; TEMP 36.4; O2SAT 97
[2025-03-15] MEDS: Lidocaine/Racepinep/Tetracaine 3 ML GEL.PF.APP TOPICAL (23:38)
[2025-03-16] MEDS: Lidocaine HCl 1 % MPF 5 ML VIAL INFILTRATI (00:29)
[2025-03-16 01:00] VITALS: BP 124/72; PULSE 72; RESP 20; TEMP 36.4; O2SAT 97
[2025-03-16 01:30] VITALS: BP 124/72; PULSE 72; RESP 20; TEMP 36.4; O2SAT 97
== END 2025-03-16 01:35 | disposition home or self-care (01) ==
PROVIDERS: Physician Assistant Medical; Emergency Provider Student in an Organized Health Care Education/Training Program; PCP Internal Medicine
DX: L02.11 Cutaneous abscess of neck (principal); L03.221 Cellulitis of neck; E04.1 Nontoxic single thyroid nodule; R51.9 Headache, unspecified; R42 Dizziness and giddiness
CPT/HCPCS: 10060; 36415; 70491; 80048; 80076; 85025; 96361; 96365; 96375; 99284; 99285; J0690; J1885; J2003; J2270; Q9967

== ENCOUNTER → 2025-03-15 20:20 | Outpatient (BNV) | payer MEDICAID, SELFPAY | PROVIDERS: Emergency Provider Student in an Organized Health Care Education/Training Program; PCP Internal Medicine; Visit Provider Radiology Diagnostic Radiology | DX: L03.221 Cellulitis of neck (principal) | CPT/HCPCS: 70491 ==

== ENCOUNTER 2025-04-16 09:35 | Outpatient (REF) | payer MEDICAID, SELFPAY ==
[2025-04-16 10:29] LABS: Hematocrit 43.1 % (37.0-47.0); Hemoglobin 14.6 g/dl (12.0-16.0); Imm Gran Abs Auto 0.01 X10*3/uL (0.00-0.03); Imm Gran Pct Auto 0.1 % (0.0-0.4); Lymphocytes Absolute Auto 2.3 X10*3/uL (1.2-4.9); MANUAL DIFF FLAG SCAN; Mean Corpuscular HGB Conc 33.9 g/dl (31.0-35.0); Mean Corpuscular Hemoglobin 30.9 pg (27.0-33.0); Mean Corpuscular Volume 91.1 fL (80.0-98.0); NRBC Abs Auto 0.000 X10*3/uL (0.0-0.012); NRBC Pct Auto 0.0 /100WBC (0.0-0.2); Platelet Count 439 X10*3/uL (160-400); Red Blood Count 4.73 X10*6/uL (4.20-5.50); SCAN SMEAR FLAG 1; White Blood Count 7.5 X10*3/uL (4.8-10.8)
--- OUTSIDE RECORDS SUMMARY | 2025-04-16 10:51 | XMS_ITS | Clinical Summary ---
Author Organization [employer] Address [address] [place] [address] Care Team Providers Care Wagon Driver Name Role Phone Unavailable Primary Care Provider [...] patient's age to complete this topic Insurance [facility] STANDARD
[2025-04-16 11:20] LABS: Alanine Aminotransferase 25 U/L (0-31); Albumin Level 4.6 g/dL (3.5-5.0); Alkaline Phosphatase 80 U/L (39-117); Anion Gap 13 (12-20); Aspartate Amino Transferase 34 U/L (5-31); Blood Urea Nitrogen 15 mg/dL (9-16); Calcium 9.7 mg/dL (8.4-10.2); Carbon Dioxide 30 mmol/L (22-29); Chloride 99 mmol/L (96-108); Cholesterol 186 mg/dL (<200); Estimated Glomerular Filt Rate > 60; Ferritin 86 ng/mL (10-250); HDL Cholesterol 37 mg/dL (>40); Potassium 3.3 mmol/L (3.3-5.1); Sodium 139 mmol/L (135-145); Thyroid Stimulating Hormone 1.65 uIU/mL (0.32-4.0); Total Protein 7.8 g/dL (6.5-8.0); Triglycerides 90 mg/dL (<150)
== END 2025-04-16 09:36 | disposition home or self-care (01) ==
LOC: HO.LAB 09:35
PROVIDERS: PCP Internal Medicine; Visit Provider Internal Medicine
DX: Z00.01 Encounter for general adult medical examination with abnormal findings (principal); I10 Essential (primary) hypertension; D50.8 Other iron deficiency anemias; K91.89 Other postprocedural complications and disorders of digestive system; L02.93 Carbuncle, unspecified; Z98.84 Bariatric surgery status
CPT/HCPCS: 36415; 80053; 80061; 82728; 84443; 85025

== ENCOUNTER 2025-06-05 14:22 | Outpatient (AMB) | payer MEDICAID, SELFPAY ==
--- NOTE | 2025-06-05 14:28 | MHC.OFFVIS ---
Vital Signs 06/05/25 14:32 Height 5 ft 1 in Weight 189 lb 0.362 oz BMI 35.7 BP 114/68 Blood Pressure Location Rt brachial Position Sitting Pulse 68 Pulse Source Palpation Intake Visit Reasons: Single thyroid nodule Intake Note: NEW Patient presents here today to establish treatment for Single Thyroid Nodule: Dynamometer Tuner Required: No Accompanied by: Self / Same As Patient Allergies Shellfish Allergy (Mild, Uncoded 06/05/25 14:32) HIVES/RASH/SWELLING HPI Comments Details: Single thyroid nodule 45 years old female with past medical history of gastroparesis, spinal stenosis, hypertension, good, mood disorder, seen in the office for initial evaluation of single thyroid nodule. She was found incidentally found during a work up for a cyst in her posterior neck. No personal history of thyroid problems Sister has history of thyroid cancer, diagnosed 2 years ago. No radiation exposure to head/neck or chest She does report taking a multivitamin ROS Fatigue Variable weight Always cold, newish for the last 2 months Thinner hair, nails break easily Has colitis so this is variable. Physical exam: General: Well appearing. NAD. Neck/Thyroid: Thyroid not palpable, no nodules. CV: RRR, no murmur. No edema. Resp:Lungs clear to auscultation bilaterally Abdomen: Soft, nontender. nondistended Extremities/Neuro: No weakness or tremor of outstretched hands Labs 04/16/2025 TSH 1.65 05/31/2024 TSH 1.64 Thyroid ultrasound 04/20/2025 FINDINGS: The right lobe of the thyroid measures 4.1 x 1.5 x 1.8 cm. Echotexture is homogeneous. The left lobe of the thyroid measures 4.3 x 0.7 x 1.8 cm. Echotexture is homogeneous. The isthmus measures 0.3 cm. Estimated total number of nodules greater than or equal to 1 cm: 1. Number of spongiform nodules greater than or equal to 2 cm, not described below (TR1): 0. Number of mixed cystic and solid nodules greater than or equal to 1.5 cm, not described below (TR2): 0. Nodule #: 1 Maximum size: 1.5 cm; other 2 dimensions 1.2 x 0.9 cm. Location: Right; lower. Composition: Solid/predominantly solid (2) Echogenicity: Hypoechoic (2) Shape: Not [id number] (0) Margins: Lobulated/irregular (2) Echogenic foci: None (0) ACR TI-RADS total points: 6. ACR TI-RADS risk category: TR4 (4?6 points). ACR TI-RADS recommendation: Ultrasound-guided fine needle aspiration. IMPRESSION: Right thyroid lobe nodule. Fine-needle aspiration suggested. CT soft tissue neck 03/15/2025 Findings: The visualized intracranial contents are unremarkable. No prevertebral fluid. Epiglottis is within normal limits. Pharyngeal mucosal space and parapharyngeal fat are normal. Salivary glands are unremarkable. No sialoliths. Right thyroid lobe demonstrates the heterogeneous low-attenuation lesion, 1.6 x 0.8 cm, axial image number 86 of 121 series 3. The left thyroid lobe is homogeneous in enhancement. No consolidation at the lung apices. No acute fractures. Right dorsal subcutaneous dermal thickening with low-attenuation collection, 1.1 cm at C2 level, image number 33 of 121. IMPRESSION: 1. Right dorsal cellulitis with abscess collection, 1.1 cm, C2 level. Clinical correlation suggested. 2. Right thyroid lobe heterogeneous low-attenuation lesion, measuring 1.6 x 0.8 cm. Nonemergent thyroid ultrasound correlation suggested. CT neck soft tissue 05/31/2022 FINDINGS: CT neck: A 7 mm rounded low-density focus is present in the right lobe of the thyroid and on the basis of size criteria is likely to be benign not definitively warranting additional imaging follow-up. Minimal nonocclusive calcific atherosclerotic plaque is present in the right carotid bulb. Normal intraluminal opacification is noted in the internal jugular systems. No mastoid or middle ear cavity effusions. Mild straightening of the cervical lordosis which may be secondary to positioning during the examination. No prevertebral fluid collections identified. [facility] Medical History Peripheral neuropathy Colitis Lumbar spondylosis HTN (hypertension) GERD (gastroesophageal reflux disease) Mood disorder Rectal prolapse Surgical History H/O gastric bypass LAP-BAND surgery status History of hernia repair Hx of cholecystectomy Hx of endoscopy History of colonoscopy Family History Father History of blood pressure problems Diabetes Mother Diabetes Son Leukemia Social History Household Members: Family and Children Housing: House Do you presently have visiting nurse or other home services: No Alcohol intake: current Alcohol intake frequency: holidays/special occasions only Patient Tobacco Use Status: Current everyday Tobacco user Tobacco use type: Cigarette Cigarettes Per Day: 5 Years Smoked: 20 Substance Use Type: Prescription Drugs service: No Current occupational status: unemployed Sexual orientation: Straight/Heterosexual Gender identity: Female Physical Exam Vital Signs: BMI result Body Mass Index 35.7 Assessment & Plan Assessment & Plan (1) Thyroid nodule: Code(s): E04.1 - Nontoxic single thyroid nodule Category: Medical Plan: Thyroid nodules found incidentally. She does have a family history (sister) with thyroid cancer. Nudule meets criteria to FNA (TRADS 4) given size 1.5cm, irregular borders, isoechoic. Thyroid nodules are highly prevalent, affecting up to 60?65% of the general population, with most being benign. The risk of malignancy in thyroid nodules is relatively low, estimated at 4?6.5%. Most nodules are discovered incidentally due to the widespread use of imaging. Malignant potential is assessed using clinical risk factors, ultrasound features (such as microcalcifications, irregular margins, hypoechogenicity, and gzxewr-smgs-hsub shape), and, in indeterminate cases, molecular testing. The majority of thyroid cancers detected are small, indolent papillary carcinomas with excellent prognosis. We reviewed the FNA procedure and I answer the procedure We also discussed also complications and effectiveness. She agreed to have the FNA done. Plan 45 minutes spent reviewing previous records, labs, imaging, education and documenting in the chart Orders: Orders US biopsy thyroid Today E04.1 - Nontoxic single thyroid nodule Coding Level of Care Code New Pt Level 4 (50210) Add On Problem Visit Only Diagnoses Thyroid nodule E04.1
[2025-06-05 14:32] VITALS: BP 114/68; PULSE 68; BMI 35.7
--- OUTSIDE RECORDS SUMMARY | 2025-06-05 18:39 | XMS_ITS | Clinical Summary ---
Author Organization [employer] Address [address] [facility] [address] [place] [address] Care Team Providers Care Program Administrator Name Role Phone Unavailable Primary Care Provider [...] patient's age to complete this topic Insurance [facility] STANDARD
== END 2025-06-05 15:14 | disposition home or self-care (01) ==
LOC: HO.ENCR 14:23
PROVIDERS: PCP Internal Medicine; Visit Provider Student in an Organized Health Care Education/Training Program
DX: E04.1 Nontoxic single thyroid nodule (principal)
CPT/HCPCS: 99204

== ENCOUNTER → 2025-06-05 14:22 | Outpatient (BNVA) | payer MEDICAID, SELFPAY | PROVIDERS: PCP Internal Medicine; Visit Provider Student in an Organized Health Care Education/Training Program | DX: E04.1 Nontoxic single thyroid nodule (principal); Z80.8 Family history of malignant neoplasm of other organs or systems | CPT/HCPCS: 99202 ==

== ENCOUNTER 2025-06-07 15:41 | Emergency (ER) | payer MEDICAID, SELFPAY ==
[2025-06-07 16:50] VITALS: BP 130/74; PULSE 86; RESP 16; TEMP 36.9; O2SAT 100; BMI 35.0
--- NOTE | 2025-06-07 16:50 | ED.GENADULT ---
HPI - General Adult General Chief complaint: Abdominal Pain Stated complaint: abd pain, n/v/d Related Data Home Medications ?Medication ?Instructions ?Recorded ?Confirmed lisinopril 20 1 tab PO DAILY 05/31/22 07/03/24 mg-hydrochlorothiazide 25 mg tablet mirabegron 25 mg tablet,extended 1 tab PO DAILY 05/31/22 07/03/24 release 24 hr (Myrbetriq) naproxen 500 mg tablet 500 mg PO BID PRN Pain 08/04/22 07/03/24 bupropion HCl 300 mg 24 hr tablet, 300 mg PO DAILY 03/03/24 07/03/24 extended release ferrous sulfate 325 mg (65 mg 325 mg PO DAILY 03/03/24 07/03/24 iron) tablet (FeroSul) omeprazole 40 mg capsule,delayed 40 mg PO BID 06/05/25 release sertraline 25 mg tablet (Zoloft) 25 mg PO DAILY 06/05/25 Previous Rx's ?Medication ?Instructions ?Recorded lidocaine 5 % topical patch 1 patch topical DAILY pain 30 days 09/08/22 #30 ea fluticasone propionate 50 1 spray intranasal DAILY PRN nasal 03/14/23 mcg/actuation nasal congestion #16 grams spray,suspension sodium chloride 0.65 % nasal spray 1 spray intranasal BID PRN nasal 03/14/23 aerosol (Saline Nasal) congestion #44 mL ondansetron 4 mg disintegrating 4 mg PO Q8H PRN nausea and 03/03/24 tablet vomiting #30 tabs sodium,potassium,mag sulfates 17.5 See Rx Instructions PO .COMPLEX 03/03/24 gram-3.13 gram-1.6 gram oral soln #354 mL (Suprep Bowel Prep Kit) sodium,potassium,mag sulfates 17.5 See Rx Instructions PO .COMPLEX 07/03/24 gram-3.13 gram-1.6 gram oral soln #354 mL (Suprep Bowel Prep Kit) meclizine 25 mg tablet 25 mg PO TID PRN dizziness #14 tabs 10/21/24 esomeprazole magnesium 40 mg 40 mg PO DAILY #90 caps 11/01/24 capsule,delayed release acetaminophen 500 mg capsule 1,000 mg (2 x 500 mg) PO .q8 PRN 03/16/25 fever or pain #30 caps ibuprofen 600 mg tablet 600 mg PO Q8H PRN fever or pain 03/16/25 #30 tabs Allergies Allergy/AdvReac Type Severity Reaction Status Date / Time Shellfish Allergy Mild HIVES/RASH/ Uncoded 06/07/25 16:54 SWELLING PMFSH Past Medical History Medical History Peripheral neuropathy Colitis Lumbar spondylosis HTN (hypertension) GERD (gastroesophageal reflux disease) Mood disorder Rectal prolapse Surgical History H/O gastric bypass LAP-BAND surgery status History of hernia repair Hx of cholecystectomy Hx of endoscopy History of colonoscopy Family History Family History Father History of blood pressure problems Diabetes Mother Diabetes Son Leukemia Social History Social History Household Members: Family and Children Housing: House Do you presently have visiting nurse or other home services: No Alcohol intake: current Alcohol intake frequency: holidays/special occasions only Patient Tobacco Use Status: Current everyday Tobacco user Tobacco use type: Cigarette Cigarettes Per Day: 5 Years Smoked: 20 Substance Use Type: Prescription Drugs Advance Directives: No Advance Directives Information Provided: No service: No Current occupational status: unemployed Sexual orientation: Straight/Heterosexual Gender identity: Female Physical Exam ED Vital Signs: Vital Signs - 24 hr 06/07/25 16:50 Temperature 98.4 F Pulse Rate 86 Respiratory Rate 16 Blood Pressure 130/74 Pulse Oximetry 100 Oxygen Delivery Method Room Air BMI result Body Mass Index 35.0 Course Course Course Narrative: This is an RME: Additional HPI, ROS, PE not included below will be deferred to primary provider. RME assessment and note performed by: Ally Julien PA-C This is a [id number]-female, with a hx of colitis, who presents to the ER with complaints of abdominal pain, diarrhea, nausea, vomiting since last night. 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 Reports 102F at home. Plan: Labs, UA, further ER eval needed Reevaluation(s) Reevaluation #1: Patient left without completing treatment. Medical Decision Making Lab Data 06/07/25 17:32 06/07/25 17:33 Labs: Lab Results 06/07/25 06/07/25 Range/Units 17:32 17:33 WBC 5.9 (4.8-10.8) X10*3/uL RBC 4.44 (4.20-5.50) X10*6/uL Hgb 13.7 (12.0-16.0) g/dl Hct 41.2 (37.0-47.0) % MCV 92.8 (80.0-98.0) fL MCH 30.9 (27.0-33.0) pg MCHC 33.3 (31.0-35.0) g/dl RDW 12.8 (11.0-16.0) % Plt Count 296 D (160-400) X10*3/uL MPV 9.2 L (9.4-12.3) fL Immature Gran % (Auto) 0.2 (0.0-0.4) % Neut % (Auto) 70.6 (45-73) % Lymph % (Auto) 20.8 (20-40) % [place] % (Auto) 6.4 (2-11) % Eos % (Auto) 1.5 (0-4) % Baso % (Auto) 0.5 (0-2) % Lymph # (Auto) 1.2 (1.2-4.9) X10*3/uL [place] # (Auto) 0.4 (0.1-1.2) X10*3/uL Eos # (Auto) 0.1 (0.0-0.4) X10*3/uL Baso # (Auto) 0.0 (0.0-0.2) X10*3/uL Abs Immat Gran (auto) 0.01 (0.00-0.03) X10*3/uL Absolute Neuts (auto) 4.2 (2.0-8.3) x10*3/uL Absolute Nucleated RBC 0.000 (0.0-0.012) X10*3/uL Nucleated RBC % (auto) 0.0 (0.0-0.2) /100WBC Sodium 140 (135-145) mmol/L Potassium 3.7 (3.3-5.1) mmol/L Chloride 104 (96-108) mmol/L Carbon Dioxide 30 H (22-29) mmol/L Anion Gap 10 L (12-20) BUN 13 (9-16) mg/dL Creatinine 0.66 (0.5-1.4) mg/dL Estim Creat Clear Calc 103.6 Estimated GFR > 60 Random Glucose 99 (60-115) mg/dL Calcium 8.7 D (8.4-10.2) mg/dL Magnesium 2.0 (1.6-2.6) mg/dL Total Bilirubin 0.4 (0.0-1.0) mg/dL Direct Bilirubin 0.2 (0.0-0.5) mg/dL AST 41 H (5-31) U/L ALT 44 H (0-31) U/L Alkaline Phosphatase 75 (39-117) U/L Total Protein 7.0 (6.5-8.0) g/dL Albumin 4.1 (3.5-5.0) g/dL Lipase 32 (8-78) U/L Beta HCG, Quant < 2 mIU/mL Influenza Type A (PCR) NEGATIVE (Negative) Influenza Type B (PCR) NEGATIVE (Negative) RSV RNA Qual (PCR) NEGATIVE (Negative) SARS-CoV-2 RNA (RT-PCR) NEGATIVE (Negative) Discharge Plan Discharge Clinical Impression: Abdominal pain Patient Disposition: Left W/O Completing Treatment Prescriptions: No Action sodium,potassium,mag sulfates [Suprep Bowel Prep Kit] 17.5-3.13-1.6 gram recon soln See Rx Instructions PO .COMPLEX Qty: 354 0RF Rx Instructions: DILUTE each bottle with 16oz of water; drink first bottle 5pm evening before procedure AND second bottle at 11pm; follow each bottle with at least 32 oz.of water within 1 hour after each bottle esomeprazole magnesium 40 mg capsule,delayed release(DR/EC) 40 mg PO DAILY Qty: 90 0RF lisinopril-hydrochlorothiazide 20-25 mg tablet 1 tab PO DAILY mirabegron [Myrbetriq] 25 mg tablet extended release 24 hr 1 tab PO DAILY meclizine 25 mg tablet 25 mg PO TID PRN (Reason: dizziness) Qty: 14 0RF ibuprofen 600 mg tablet 600 mg PO Q8H PRN (Reason: fever or pain) Qty: 30 0RF acetaminophen 500 mg capsule 1,000 mg PO .q8 PRN (Reason: fever or pain) Qty: 30 0RF fluticasone propionate 50 mcg/actuation spray,suspension 1 spray intranasal DAILY PRN (Reason: nasal congestion) Qty: 16 0RF Rx Instructions: administer into each nostril Saline Nasal 0.65 % aerosol,spray 1 spray intranasal BID PRN (Reason: nasal congestion) Qty: 44 0RF naproxen 500 mg tablet 500 mg PO BID PRN (Reason: Pain) lidocaine 5 % adhesive patch,medicated 1 patch topical DAILY 30 Days Qty: 30 3RF bupropion HCl 300 mg tablet extended release 24 hr 300 mg PO DAILY ferrous sulfate [FeroSul] 325 mg (65 mg iron) tablet 325 mg PO DAILY sodium,potassium,mag sulfates [Suprep Bowel Prep Kit] 17.5-3.13-1.6 gram recon soln See Rx Instructions PO .COMPLEX Qty: 354 0RF Rx Instructions: DILUTE; drink 1/2 at 6-8 pm and half at 11 PM- 1AM ondansetron 4 mg tablet,disintegrating 4 mg PO Q8H PRN (Reason: nausea and vomiting) Qty: 30 0RF omeprazole 40 mg capsule,delayed release(DR/EC) 40 mg PO BID sertraline [Zoloft] 25 mg tablet 25 mg PO DAILY Discharge Date/Time: 06/07/25 21:41
[2025-06-07 17:39] LABS: MANUAL DIFF FLAG NO
[2025-06-07 17:46] LABS: Hematocrit 41.2 % (37.0-47.0); Hemoglobin 13.7 g/dl (12.0-16.0); Imm Gran Abs Auto 0.01 X10*3/uL (0.00-0.03); Imm Gran Pct Auto 0.2 % (0.0-0.4); Lymphocytes Absolute Auto 1.2 X10*3/uL (1.2-4.9); Mean Corpuscular HGB Conc 33.3 g/dl (31.0-35.0); Mean Corpuscular Hemoglobin 30.9 pg (27.0-33.0); Mean Corpuscular Volume 92.8 fL (80.0-98.0); NRBC Abs Auto 0.000 X10*3/uL (0.0-0.012); NRBC Pct Auto 0.0 /100WBC (0.0-0.2); Platelet Count 296 X10*3/uL (160-400); Red Blood Count 4.44 X10*6/uL (4.20-5.50); White Blood Count 5.9 X10*3/uL (4.8-10.8)
[2025-06-07 18:00] LABS: Alanine Aminotransferase 44 U/L (0-31); Albumin Level 4.1 g/dL (3.5-5.0); Alkaline Phosphatase 75 U/L (39-117); Anion Gap 10 (12-20); Aspartate Amino Transferase 41 U/L (5-31); Blood Urea Nitrogen 13 mg/dL (9-16); Calcium 8.7 mg/dL (8.4-10.2); Carbon Dioxide 30 mmol/L (22-29); Chloride 104 mmol/L (96-108); Creatinine Clr Calc Pharmacy 103.6; Estimated Glomerular Filt Rate > 60; Lipase 32 U/L (8-78); Magnesium 2.0 mg/dL (1.6-2.6); Potassium 3.7 mmol/L (3.3-5.1); Sodium 140 mmol/L (135-145); Total Protein 7.0 g/dL (6.5-8.0)
[2025-06-07 18:18] LABS: Resp Syncy Virus RNA Qual PCR NEGATIVE (Negative); SARS COV2 PCR INHOUSE NEGATIVE (Negative)
--- OUTSIDE RECORDS SUMMARY | 2025-06-07 21:39 | XMS_ITS | Clinical Summary ---
Author Organization [employer] Address [address] [facility] [address] [place] [address] Care Team Providers Care Shorts Sifter Name Role Phone Unavailable Primary Care Provider [...] patient's age to complete this topic Insurance [facility] STANDARD
== END 2025-06-07 21:41 | disposition left against medical advice (07) ==
LOC: HO.ED 21:37
PROVIDERS: Physician Assistant Medical; Emergency Provider Emergency Medicine
DX: R10.9 Unspecified abdominal pain (principal); R11.2 Nausea with vomiting, unspecified; R19.7 Diarrhea, unspecified; F17.210 Nicotine dependence, cigarettes, uncomplicated
CPT/HCPCS: 80048; 80076; 83690; 83735; 84702; 85025; 87637; 99281

== ENCOUNTER 2025-06-13 09:05 | Outpatient (REF) | payer MEDICAID, SELFPAY ==
--- NOTE | 2025-06-13 09:45 | PM.PROC ---
Brief Operative Note Date of procedure: 06/13/25 Pre-op diagnosis: 1.5 cm right lower thyroid nodule Post-op diagnosis: same Procedure: INDICATION: 1.5 cm right lower thyroid nodule; FNA performed to assess for malignancy DESCRIPTION OF PROCEDURE: The indications for FNA (to assess for malignancy) were reviewed with the patient in detail. Potential complications (e.g., bleeding, infection, damage to local structures, absence of clear diagnosis after FNA) were reviewed. Alternatives to FNA including conservative observation or surgery were described. The patient understood and agreed to proceed. This was documented by the signing of the written informed consent form. A time-out was performed to confirm the patient's identity and the site of planned FNA. The nodule of interest was identified using ultrasound (14 MHz linear array probe). The site of FNA was then draped in the usual fashion and carefully cleaned and prepared using alcohol swabs. The skin at the previously-identified site of needle insertion was iced and sprayed with numbing spray. Under ultrasound guidance, 4 passes were performed using a 1.5-inch, 22-gauge needle, and sample was obtained via capillary action. The needle tip was clearly visualized to be within the nodule at the time of sampling for 4 of 4 passes The patient tolerated the procedure well. There were no immediate complications. A small adhesive bandage was applied, and the patient was advised to take acetaminophen (rather than NSAIDs) for any discomfort and to report any signs of inflammation/infection or marked swelling. IMPRESSION: Technically successful ultrasound-guided fine needle aspiration of 1.5 cm right lower thyroid nodule. PLAN: The patient was advised that I will provide follow-up regarding the cytology result and any subsequent plans. Omid Garsia MD Endocrinology Attending Anesthesia: local Surgeon: Omid Garsia Condition: stable Disposition: same day
== END 2025-06-13 09:06 | disposition home or self-care (01) ==
LOC: HO.US 09:05
PROVIDERS: PCP Internal Medicine; Visit Provider Student in an Organized Health Care Education/Training Program
DX: E04.1 Nontoxic single thyroid nodule (principal)
CPT/HCPCS: 10005; 88173; 88305

== ENCOUNTER → 2025-06-13 09:05 | Outpatient (BNV) | payer MEDICAID, SELFPAY | PROVIDERS: PCP Internal Medicine; Visit Provider Student in an Organized Health Care Education/Training Program | DX: E04.1 Nontoxic single thyroid nodule (principal) | CPT/HCPCS: 10005 ==